=== PATIENT | female | born 1955 | race Caucasian/White ===

== ENCOUNTER 2017-01-20 09:32 | Day surgery (SDC) | payer BC ==
[~2017-01-20 09:32] MED LIST: Acetaminophen TAB* 325 MG PO PRN; Buffered Lidocaine 1% SYR 3ML* 3 ML/SYR SYRINGE INTRADERM ONE
[2017-01-20] MEDS ORDERED: Midazolam* 1 MG/ML 2 ML VIAL (2 MG) ONE ×2 (10:05→10:45)
[2017-01-20] MEDS ORDERED: fentaNYL* 50 MCG/ML 2 ML VIAL (100 MCG VIAL) ONE (10:05)
[2017-01-20 11:09] VITALS: BP 136/82
[2017-01-20] MEDS ORDERED: Phenylephrine 2.5% OPTH.SOL* 2 ML BTL ONE (11:24)
[2017-01-20] MEDS ORDERED: Lidocaine 1% MPF* 2 ML VIAL ONE (11:24)
[2017-01-20] MEDS ORDERED: Cyclopentolate 1% OPTH.SOL* 2 ML BTL ONE (11:24)
[2017-01-20] MEDS ORDERED: Tropicamide 1% OPTH.SOL* BTL ONE (11:24)
[2017-01-20] MEDS ORDERED: Tetracaine 0.5% OPTH.SOL 4 ML* 1 DROP BTL ONE (11:24)
[2017-01-20] MEDS ORDERED: Neomycin/Polymy/Dex OPHTH.OIN* 3.5 GM ONE (11:24)
[2017-01-20] MEDS ORDERED: Flurbiprofen 0.03% OPTH.SOL* 2.5 ML BTL ONE (11:24)
--- NOTE | 2017-01-20 14:02 | OP ---
DATE OF OPERATION/DATE OF DICTATION: 01/20/2017. DATE OF : 1955. SURGEON: Dr. Kota Sterling. DEVELOPING MACHINE TENDER: None. ANESTHESIA: Topical with intravenous sedation. PRE-OP DIAGNOSIS: Cataract, right eye. POST-OP DIAGNOSIS: Cataract, right eye. OPERATIVE PROCEDURE: Phacoemulsification and cataract extraction with posterior chamber intraocular lens implant, right eye. COMPLICATIONS: None. BLOOD LOSS: None. OPERATIVE FINDINGS: The patient was brought to the operating room and received a small amount of in travenous sedation. A drop of Tetracaine was placed in her right eye. She was prepped and draped i n the usual sterile fashion for ophthalmic surgery and attention was directed to the right eye where a speculum was placed. A paracentesis was created at the 11 o'clock position and 0.1 cc of 1 perce nt preservative-free Lidocaine was injected into the anterior chamber followed by DisCoVisc. The ey e was digitally stabilized while a 2.75 mm keratome was used to create a triplanar clear corneal inc ision at the 9 o'clock position. A continuous curvilinear capsulorrhexis was created with a cystoto me and Utrata forceps. BSS on a cannula was used to hydrodissect the lens from the capsule. Phacoe mulsification was performed in a vsqbxr-wdn-cnsoqxh technique to create four fragments which were re moved. Residual cortical material was removed with irrigation and aspiration. DisCoVisc was used to inflate the capsular bag and an AUOOTO 21.0 diopter lens was folded and inserted into the capsular bag. DisCoVisc was removed using irrigation and aspiration. BSS on a cannula was used to hydrate t he corneal stroma and seal the wound. At the end of the case the pupil was round and the lens was c entered. The eye was of normal pressure and the wound was water tight. The speculum was removed and topical Maxitrol ointment was placed on the surface of the eye. The eye was closed, patched and sh ielded and the patient was sent to the recovery room in stable condition with post operative instruc tions and follow-up appointment given. [id number]/[facility] #: [id number]
== END 2017-01-20 11:12 | disposition home or self-care (01) ==
LOC: OREAST 09:32
PROVIDERS: ATTEND Ophthalmology
DX: H25.11 Age-related nuclear cataract, right eye (principal); I10 Essential (primary) hypertension; Z87.891 Personal history of nicotine dependence; E03.9 Hypothyroidism, unspecified
CPT/HCPCS: A9270-GY; J2250; J3010; V2632

== ENCOUNTER 2017-02-03 09:06 | Day surgery (SDC) | payer BC ==
[~2017-02-03 09:06] MED LIST changes: -Acetaminophen TAB* 325 MG PO PRN; -Buffered Lidocaine 1% SYR 3ML* 3 ML/SYR SYRINGE INTRADERM ONE; +Buffered Lidocaine 1% SYRIN* 5 ML/SYR SYRINGE INTRADERM ONE
[2017-02-03] MEDS ORDERED: Midazolam* 1 MG/ML 2 ML VIAL (2 MG) ONE (10:18)
[2017-02-03] MEDS ORDERED: fentaNYL* 50 MCG/ML 2 ML VIAL (100 MCG VIAL) ONE (10:18)
[2017-02-03 11:10] VITALS: BP 130/75
[2017-02-03] MEDS ORDERED: Phenylephrine 2.5% OPTH.SOL* 2 ML BTL ONE (13:01)
[2017-02-03] MEDS ORDERED: Cyclopentolate 1% OPTH.SOL* 2 ML BTL ONE (13:01)
[2017-02-03] MEDS ORDERED: Neomycin/Polymy/Dex OPHTH.OIN* 3.5 GM ONE (13:01)
[2017-02-03] MEDS ORDERED: Lidocaine 1% MPF* 2 ML VIAL ONE (13:01)
[2017-02-03] MEDS ORDERED: Tropicamide 1% OPTH.SOL* BTL ONE (13:01)
[2017-02-03] MEDS ORDERED: Tetracaine 0.5% OPTH.SOL 4 ML* 1 DROP BTL ONE (13:01)
[2017-02-03] MEDS ORDERED: Flurbiprofen 0.03% OPTH.SOL* 2.5 ML BTL ONE (13:01)
--- NOTE | 2017-02-03 22:14 | OP ---
OPERATIVE REPORT: DATE OF OPERATION: 02/03/17 DATE OF : [birth year] SURGEON: Dr. Kota Sterling. PATHOLOGY TECHNICIAN: None. ANESTHESIA: Topical with intravenous sedation. PRE-OP DIAGNOSIS: Cataract, left eye. POST-OP DIAGNOSIS: Cataract, left eye. OPERATIVE PROCEDURE: Phacoemulsification and cataract extraction with posterior chamber intraocular lens implant, left eye. COMPLICATIONS: None. BLOOD LOSS: None. OPERATIVE FINDINGS: The patient was brought to the operating room and received a small amount of in travenous sedation. A drop of tetracaine was placed in her left eye. She was prepped and draped in the usual sterile fashion for ophthalmic surgery and attention was directed to the left eye where a speculum was placed. A paracentesis was created at the 5 o'clock position and 0.1 cc of 1 percent preservative-free Lidocaine was injected into the anterior chamber followed by DisCoVisc. The eye w as digitally stabilized while a 2.75 mm keratome was used to create a triplanar clear corneal incisi on at the 3 o'clock position. A continuous curvilinear capsulorrhexis was created with a cystotome and Utrata forceps. BSS on a cannula was used to hydrodissect the lens from the capsule. Phacoemuls ification was performed in a lhhlim-ymc-alhomiu technique to create four fragments which were remove d. Residual cortical material was removed with irrigation and aspiration. DisCoVisc was used to inf late the capsular bag and an [id number] 21.0 diopter lens was folded and inserted into the capsular bag. DisCoVisc was removed using irrigation and aspiration. BSS on a cannula was used to hydrate the c orneal stroma and seal the wound. At the end of the case the pupil was round and the lens was cente red. The eye was of normal pressure and the wound was water tight. The speculum was removed and top ical Maxitrol ointment was placed on the surface of the eye. The eye was closed, patched and shield ed and the patient was sent to the recovery room in stable condition with post operative instruction s and follow-up appointment given. [id number]/[facility] #: [id number]
== END 2017-02-03 11:12 | disposition home or self-care (01) ==
LOC: OREAST 09:06
PROVIDERS: ATTEND Ophthalmology
DX: H25.12 Age-related nuclear cataract, left eye (principal); I10 Essential (primary) hypertension
CPT/HCPCS: A9270-GY; J2250; J3010

== ENCOUNTER 2019-11-22 23:41 | Inpatient (IN) | payer BC, MEDICARE ==
--- OUTSIDE RECORDS SUMMARY | 2019-11-22 23:51 | XMS REPORT | Continuity of Care Document ---
:1955 External Reference #:[id number] Author Name Salvatore Greco MD Address [address] [place] [address] Problems Active Problems Provider Date Adult health examination Onset: 03/25/2019 Idiopathic peripheral neuropathy Salvatore Greco MD Onset: 05/12/2019 Type 2 diabetes mellitus without complication Onset: 03/25/2019 Benign essential hypertension Onset: 03/25/2019 Depressive disorder Onset: 01/12/2018 Body mass index 40+ - severely obese Onset: 03/25/2019 Chronic kidney disease Onset: 08/24/2018 Iron deficiency anemia Onset: 01/12/2018 Sciatica Onset: 03/25/2019 Hysterectomy Salvatore Greco MD Onset: 11/15/2019 Note: Maybe 1999? Social History Type Date Description Comments Sex Unknown Tobacco Use Start: Unknown End: Unknown Patient is a former smoker quit 1979 Smoking Status Reviewed: 11/15/19 Patient is a former smoker quit 1979 Allergies, Adverse Reactions, Alerts Active Allergies Reaction Severity Comments Date Cymbalta imbalance Mild 05/13/2019 Wellbutrin useless Mild 05/13/2019 Zoloft dec libido, dry mouth Mild 05/13/2019 Codeine Sulfate No Reaction Indicated Mild 05/13/2019 Bactrim Allergic urticaria Severe 05/13/2019 Paper Tape 1"X12yd No Reaction Indicated 05/13/2019 Chlorthalidone Hypokalemia 11/15/2019 Medications Active Medications SIG Qnty Indications Ordering Date Provider Glipizide 1/2 tablet daily 45tabs Salvatore Greco MD 11/17/2019 5mg Tablets Spironolactone one daily 90tabs Salvatore Greco MD 11/15/2019 25mg Tablets Nystatin Apply Cream 15units Parris Linn, 08/19/2019 [id number]/GM Topically Two MD Cream Times Daily For 14 Days Atorvastatin Calcium 1 daily Oral 90tabs Unknown 03/31/2019 40mg Tablets 3ML Luer-Kasey Syringe N/A; Use 1 12units Unknown 12/30/2018 22G X 1-1/2" Syringe Monthly 22G X 1-1/2" 3 ML Misc Ranitidine HCL Oral; Take 1 30tabs Unknown 12/24/2017 150mg Tablet By Mouth Tablets Every Day Cyanocobalamin Injection; Inject 10units Unknown 12/17/2017 1000mcg/ML 1 ML Monthly Solution Fenofibrate Oral; Take 1 90tabs Unknown 12/17/2017 145mg Tablets Tablet By [place] Day Proair HFA 2 Inhalation; 2 17units Unknown 12/17/2017 108(90Base) Puffs Q4-6 Hours mcg/Act Aerosol prn Cough Or Shortness Of Breath Tramadol HCL take 1 to 2 180tabs Salvatore Greco MD 12/07/2017 50mg Tablets tablets by mouth every 8 hours as needed - maximum daily dose of 6 per day Fluticasone Propionate nasal; spray 2 16units Salvatore Greco MD 11/18/2017 sprays into each 50mcg/Act Suspension nostril one time daily Blood Pressure Monitor 1 External 1units Unknown 05/22/2016 Talking Auto-Inflation Med Cuff Misc Gabapentin 2 tid Oral 0tabs Unknown 07/09/2008 600mg Tablets Immunizations CPT Code Status Date Vaccine Lot # [id number] Given 11/15/2019 Prevnar 13 [id number] Given 11/15/2019 Flu High Dose [id number] 56894 Given 12/17/2017 Shingrix - Shingles vaccine, Herpes Zoster 99010 Given 05/22/2016 Flu < 65 years 88106 Given 10/11/2013 Flu < 65 years 49097 Given 07/06/2012 Zoster Shingles Vaccine For Subcutaneous Injection 85298 Given 07/06/2012 Tdap - Boostrix/Adacel 47919 Given 07/06/2012 Flu < 65 years 64598 Given 06/07/2011 Flu < 65 years Vital Signs Date Vital Result Comment 11/15/2019 9:24am BP Systolic 122 mmHg BP Diastolic 74 mmHg Height 61.50 inches 5'1.50" Weight 260.00 lb Heart Rate 74 /min Body Temperature 98.0 F O2 % BldC Oximetry 98 % BMI (Body Mass Index) 48.3 kg/m2 03/25/2019 2:13pm BP Systolic 140 mmHg Height 60.50 inches 5'0.50" Weight 262.00 lb Heart Rate 83 /min Body Temperature 97.3 F O2 % BldC Oximetry 99 % BMI (Body Mass Index) 50.33 kg/m2 Results Test Acquired Date Facility Test Result H/L Range Note Xray 11/15/2019 [facility] Mammography <pending> [address], [place] [address] Bilateral; [phone] 2-View Each Breast Comp Metabolic 11/12/2019 [facility] Sodium 136 mmol/L Normal 135-145 Panel [address] [place], [place] [id number] [phone] Potassium 3.2 mmol/L Low 3.5-5.0 Chloride 98 mmol/L Low 101-111 Co2 Carbon Dioxide 28 mmol/L Normal 22-32 Anion Gap 10 mmol/L Normal 2-11 Glucose 180 mg/dL High 70-100 Blood Urea Nitrogen 25 mg/dL High 6-24 Creatinine 1.01 mg/dL High 0.51-0.95 BUN/Creatinine Ratio 24.8 High 8-20 Calcium 9.3 mg/dL Normal 8.6-10.3 Total Protein 7.0 g/dL Normal 6.4-8.9 Albumin 4.3 g/dL Normal 3.2-5.2 Globulin 2.7 g/dL Normal 2-4 Albumin/Globulin Ratio 1.6 Normal 1-3 Total Bilirubin 0.50 mg/dL Normal 0.2-1.0 Alkaline Phosphatase 89 U/L Normal 34-104 Alt 18 U/L Normal 7-52 Ast 26 U/L Normal 13-39 Egfr Non- 55.0 >60 Egfr 66.6 >60 1 Lipid Profile 11/12/2019 [facility] Triglycerides 334 mg/dL 2 (Trig/Chol/HDL) [address] [place], [place] [id number] [phone] Cholesterol 190 mg/dL 3 HDL Cholesterol 26.8 mg/dL 4 LDL Cholesterol 96 mg/dL 5 Laboratory test 11/12/2019 [facility] Hemoglobin A1c 6.4 % High 4.0-5.6 [address] ([facility]) [place] [address] [phone] Creatine Kinase(CK) 35 U/L Normal 10-223 1 Because ethnic data is not always readily available, this report includes an eGFR for both -Americans and non- Americans. The National Kidney Disease Education Program (NKDEP) does not endorse the use of the MDRD equation for patients that are not between the ages of 18 and 70, are , have extremes of body size, muscle mass, or nutritional status, or are non- or non-. According to the National Kidney Foundation, irrespective of diagnosis, the stage of the disease is based on the level of kidney function: Stage Description GFR(mL/min/1.73 m(2)) 1 Kidney damage with normal or decreased GFR 90 2 Kidney damage with mild decrease in GFR 60-89 3 Moderate decrease in GFR 30-59 4 Severe decrease in GFR 15-29 5 Kidney failure <15 (or dialysis) 2 Desirable: <150 Borderline High: 150-199 High: 200-499 Very High: >500 3 Desirable: <200 Borderline High: 200-239 High: >239 4 Low: <40 Desirable: 40-60 High: >60 5 Desirable: <100 Near Optimal: 100-129 Borderline High: 130-159 High: 160-189 Very High: >189 6 Therapeutic target for the treatment of diabetes mellitus patients is <7% HBA1C, and in selective patients <6.0%. Please refer to [place] [employer] diabetic care guidelines for further information. Procedures Date Code Description Status 11/15/2019 90140 Brief Emotional/Behav Assessment W/ Scoring Doc Per Completed Standard Inst Medical Devices Description No Information Available Encounters Type Date Location Provider Dx Diagnosis Office Visit 11/15/2019 [facility] Salvatore Greco MD E11.9 Type 2 diabetes mellitus 9:15a without complications I10 Essential (primary) hypertension G60.9 Hereditary and idiopathic neuropathy, unspecified M54.31 Sciatica, right side E87.6 Hypokalemia Assessments Date Code Description Provider 11/15/2019 E11.9 Type 2 diabetes mellitus without complication Salvatore Greco MD 11/15/2019 I10 Benign essential hypertension Salvatore Greco MD 11/15/2019 G60.9 Idiopathic peripheral neuropathy Salvatore Greco MD 11/15/2019 M54.31 Sciatica Salvatore Greco MD 11/15/2019 E87.6 Hypokalemia Salvatore Greco MD Plan of Treatment 11/15/2019 - Salvatore Greco MDE11.9 Type 2 diabetes mellitus without [id number] Benign essential fffairzgtsoqL32.9 Idiopathic peripheral msescjjvsqZ41.31 TiwjwtzrK41.6 HypokalemiaAllNew Medication:Spironolactone 25 mg - one daily Functional Status Description No Information Available Mental Status Description No Information Available Referrals Description No Information Available
--- OUTSIDE RECORDS SUMMARY | 2019-11-22 23:51 | XMS REPORT | Continuity of Care Document ---
:1955 External Reference #:[id number] Author Name Salvatore Greco MD (transmitted by agent of provider Quang Grossman) Address [address] [place] [address] Problems Active Problems Provider Date Adult health [...] Medications SIG Qnty Indications Ordering Date Provider Spironolactone one daily 90tabs Salvatore Greco MD 11/15/2019 25mg Tablets Nystatin Apply Cream 15units Parris Wineholt, 08/19/2019 [id number]/GM Topically Two MD Cream Times Daily For [...] dose of 6 per day Fluticasone Propionate Nasal; [place] 2 16units Unknown 11/18/2017 Sprays Into Each 50mcg/Act Suspension Nostril One Time Daily Blood Pressure Monitor 1 External 1units Unknown 05/22/2016 Talking Auto-Inflation Med Cuff Misc Gabapentin 2 tid Oral 0tabs Unknown 07/09/2008 600mg Tablets Immunizations CPT Code Status Date Vaccine Lot # [id number] Given 12/17/2017 Shingrix - Shingles vaccine, Herpes Zoster 93800 Given 05/22/2016 Flu < 65 years 39031 Given 10/11/2013 Flu < 65 years 06447 Given 07/06/2012 Zoster Shingles Vaccine For Subcutaneous Injection 63364 Given 07/06/2012 Tdap - Boostrix/Adacel 19607 Given 07/06/2012 Flu < 65 years 14987 Given 06/07/2011 Flu < 65 years Vital [...] Test Result H/L Range Note Xray 11/15/2019 [facility] Mammography <pending> [address], [place] [address] Bilateral; [phone] 2-View Each Breast Comp Metabolic 11/12/2019 [facility] Sodium 136 mmol/L Normal 135-145 Panel [address] [place] [address] [phone] Potassium 3.2 mmol/L Low 3.5-5.0 Chloride 98 [...] Egfr 66.6 >60 1 Lipid Profile 11/12/2019 [facility] Triglycerides 334 mg/dL 2 (Trig/Chol/HDL) [address] [place] [address] [phone] Cholesterol 190 mg/dL 3 HDL Cholesterol 26.8 mg/dL 4 LDL Cholesterol 96 mg/dL 5 Laboratory test 11/12/2019 [facility] Hemoglobin A1c 6.4 % High 4.0-5.[address] ([facility]) [place], [place] [id number] [phone] Creatine Kinase(CK) 35 U/L Normal 10-223 1 [...] in selective patients <6.0%. Please refer to [place] [employer] diabetic care guidelines for further information. Procedures Date Code Description Status 11/15/2019 12011 Brief Emotional/Behav Assessment W/ Scoring Doc Per Completed Standard Inst Medical Devices Description No Information Available Encounters Description No Information Available Assessments Description No Information Available Plan of Treatment 11/15/2019 - Haylee Mcclure Medication:Spironolactone 25 mg - one daily Functional Status Description No Information Available Mental Status Description No Information Available Referrals Description No Information Available
[2019-11-22] MEDS ORDERED: Morphine 10 MG/ML VIAL (1 ml) IV ONE (23:54)
[2019-11-22] MEDS ORDERED: NS 0.9% 1000 ML** 2,000 ML IV ONE (23:54)
[2019-11-22] MEDS ORDERED: Ondansetron INJ* 2 MG/ML VIAL IV ONE (23:54)
[2019-11-22] MEDS ORDERED: Morphine 4 MG/ML VIAL (1 ml) 4 MG/ML VIAL IV PRN (23:54)
[2019-11-23 00:33] LABS: ABS Eosinophils 0.1 10^3/ul (0-0.6); ABS Lymphocytes 0.6 10^3/ul (1.0-4.8); ABS Monocytes 0.3 10^3/ul (0-0.8); ABS Neutrophils 6.1 10^3/ul (1.5-7.7); Eosinophil % 0.8 %; Hematocrit 38 % (35-47); Hemoglobin 12.6 g/dL (12.0-16.0); Lymphocyte % 8.5 %; Mean Corpuscular HGB Conc 33 g/dL (31-36); Mean Corpuscular Hemoglobin 29 pg (27-31); Mean Corpuscular Volume 89 fL (80-97); Mean Platelet Volume 9.3 fL (7.4-10.4); Platelet Count 169 10^3/uL (150-450); Red Cell Distribution Width 14 % (10-15); White Blood Count 7.1 10^3/uL (3.5-10.8)
[2019-11-23 00:52] LABS: Albumin 4.2 g/dL (3.2-5.2); Albumin/Globulin Ratio 1.5 (1-3); BUN/Creatinine Ratio 22.5 (8-20); C Reactive Protein 8.49 mg/L (<8.01); Calcium 9.3 mg/dL (8.6-10.3); EGFR African American 65.8 (>60); EGFR Non-African American 54.4 (>60); Globulin 2.8 g/dL (2-4); Potassium 4.1 mmol/L (3.5-5.0); Total Bilirubin 0.4 mg/dL (0.2-1.0)
[2019-11-23] MEDS ORDERED: Iodixanol* (CONTRAST) 320 MG/ML 100 ML SDV IV ONE (00:56)
--- NOTE | 2019-11-23 01:09 | ED ---
Abdominal Pain/Female - HPI Summary HPI Summary: Patient is a 64 y/o F presenting to [facility] with complaints of upper abdominal pain, N/V/D. She states that she experienced onset of diarrhea three days ago along with her abdominal pain. Abdominal pain initially was mild and characterized as a cramping sensation. However, the abdominal pain significantly worsened this evening. N/V also onset. No fever currently as temp of 98 F in ED. She notes Hx of bowel obstruction but states that she is unsure if this is a similar presentation. PSHx of cholecystectomy noted, patient still has her appendix. Home medications and allergies are reviewed. Home Medications Medication Instructions Recorded Confirmed Type Metaxalone TAB* [Skelaxin TAB*] 1 tab PO BID 11/23/12 02/03/17 History celeCOXIB CAP* [Celebrex CAP*] 2 tab PO QAM 11/23/12 02/03/17 History traMADol TAB* [Ultram*] 50 - 100 mg PO Q8HR 11/23/12 02/03/17 History Diphenhydramine HCl [Benadryl] 2 cap PO QPM PRN 09/24/14 02/03/17 History Chlorthalidone TAB* [Hygroton TAB*] 1 tab PO QAM 03/15/15 02/03/17 History Cholecalciferol [Vitamin D3] 1 cap PO QAM 03/15/15 02/03/17 History Cyanocobalamin INJ * [Vitamin B12 1,000 mcg IM MONTHLY 03/15/15 02/03/17 History INJ *] Fenofibric Acid [Fibricor] 1 tab PO QAM 03/15/15 02/03/17 History Gabapentin TAB(NF) [Neurontin 600 1 tab PO BID 03/15/15 02/03/17 History mg TAB(NF)] Acetaminophen TAB* [Tylenol TAB*] 1,000 mg PO BID PRN 03/23/15 02/03/17 History Magnesium 1 tab PO QAM 01/14/17 02/03/17 History Ranitidine TAB (NF) [Zantac TAB 1 tab PO QAM 01/14/17 02/03/17 History (NF)] - History of Current Complaint Chief Complaint: EDAbdPain Stated Complaint: ABD PAIN PER EMS Time Seen by Provider: 11/22/19 23:49 Hx Obtained From: Patient Onset/Duration: Lasting Days, Still Present, Worse Since Timing: Days Severity Initially: Mild Severity Currently: Severe Pain Intensity: 10 Pain Scale Used: 0-10 Numeric Location: Other - upper abdomen Character: Cramping Associated Signs and Symptoms: Positive: Nausea, Vomiting, Diarrhea. Negative: Fever - temp of 98 F in ED Allergies/Adverse Reactions: Allergies Allergy/AdvReac Type Severity Reaction Status Date / Time Adhesive Tape Allergy Unknown Verified 11/22/19 23:53 Reaction Details codeine Allergy Facial Verified 11/23/19 00:35 Redness/Flushing pregabalin [From Lyrica] Allergy Hives Verified 11/23/19 00:35 Sulfa (Sulfonamide Allergy Hives Verified 11/23/19 00:35 Antibiotics) Bee Stings Allergy Severe Swelling Uncoded 02/03/17 09:19 Of Face,Lips,& Throat SEASONAL Allergy Congestion Uncoded 02/03/17 09:19 Home Medications: Home Medications Metaxalone TAB* [Skelaxin TAB*] 1 tab PO BID 11/23/12 [History Confirmed ] traMADol TAB* [Ultram*] 50 - 100 mg PO Q8HR PRN 11/23/12 [History Confirmed ] Diphenhydramine HCl [Benadryl] 2 cap PO QPM PRN 09/24/14 [History Confirmed ] Chlorthalidone TAB* [Hygroton TAB*] 1 tab PO QAM 03/15/15 [History Confirmed ] Cholecalciferol [Vitamin D3] 2 cap PO QAM 03/15/15 [History Confirmed 11/23/19] Cyanocobalamin INJ * [Vitamin B12 INJ *] 1,000 mcg IM MONTHLY 03/15/15 [History Confirmed 11/23/19] Gabapentin TAB(NF) [Neurontin 600 mg TAB(NF)] 2 tab PO TID 03/15/15 [History Confirmed 11/23/19] Acetaminophen TAB* [Tylenol TAB*] 1,000 mg PO BID PRN 03/23/15 [History Confirmed 11/23/19] Atorvastatin Calcium [Lipitor] 40 mg PO DAILY 11/23/19 [History Confirmed ] Fenofibrate(NF) [Tricor(NF)] 145 mg PO DAILY 11/23/19 [History Confirmed ] Spironolactone 25 mg PO DAILY 11/23/19 [History Confirmed 11/23/19] glipiZIDE [Glipizide] 2.5 mg PO DAILY 11/23/19 [History Confirmed 11/23/19] PMH/Surg Hx/FS Hx/Imm Hx Endocrine/Hematology History: Reports: Hx Thyroid Disease - HYPOTHYROID RESOLVED , LATE TEENS AND EARLY 20'S Denies: Hx Diabetes Cardiovascular History: Reports: Hx Hypercholesterolemia, Hx Hypertension - currently resolved, Respiratory History: Denies: Hx Asthma, Hx Chronic Obstructive Pulmonary Disease (COPD) GI History: Reports: Hx Ulcer - peptic, Other GI Disorders - GASTRIC BYPASS WITH CAT-N-Y 2002 History: Reports: Hx Kidney Stones - 2006 RENAL ULTRASOUND AND LASER TO BREAK UP, HAD STENT Musculoskeletal History: Reports: Hx Arthritis - OSTEO SPINE, HANDS, FEET, ANKLES, KNEES Sensory History: Reports: Hx Cataracts, Hx Contacts or Glasses - WEARS GLASSES Denies: Hx Glaucoma, Hx Hearing Aid Opthamlomology History: Reports: Hx Cataracts, Hx Contacts or Glasses - WEARS GLASSES Denies: Hx Glaucoma Neurological History: Reports: Hx Headaches - controlled with medication, Hx Nerve Disease - peripheral neurapathy - Cancer History Hx Chemotherapy: No Hx Radiation Therapy: No - Surgical History Surgery Procedure, Year, and Place: Gastric Bypass 2002, hernia repair, Kidney stone left (laser and stent), Hysterectomy 2006, Right knee replacement surgery 2011, Dental extractions 2010.lt knee replacement 2013, choley with gastric bypass Hx Anesthesia Reactions: No Infectious Disease History: No Infectious Disease History: Reports: 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 X2, BREAST AND CHEST AND L KNEE Denies: Hx Hepatitis, Hx Human Immunodeficiency Virus (HIV), Traveled Outside the [place] in Last 30 Days - Family History Known Family History: Positive: Other - [place] - Social History Alcohol Use: Rare Alcohol Amount: 1 BEER OR DRINK A MONTH AT MOST Substance Use Type: Reports: None Smoking Status (MU): Former Smoker Type: Cigarettes Amount Used/How Often: SMOKED 2 PPD FOR 10 YEARS Have You Smoked in the Last Year: No Review of Systems Negative: Fever - temp of 98 F in ED Positive: Abdominal Pain, Vomiting, Diarrhea, Nausea All Other Systems Reviewed And Are Negative: Yes Physical Exam - Summary Physical Exam Summary: Appearance: Well-appearing, Morbidly obese, substantial colicky pain Skin: Warm, dry, no obvious rash Eyes: sclera anicteric, no conjunctival pallor HENT: mucous membranes moist, pharynx appears normal Neck: Supple, nontender Respiratory: Clear to auscultation, no signs of respiratory distress Cardiovascular: Normal S1, S2. No murmurs. Normal distal pulses in tibial and radial bilaterally. Abdomen: Soft, upper abdominal tenderness, no obvious guarding, normal active bowel sounds present, limited exam secondary to obesity Musculoskeletal: Normal, Strength/ROM Intact Neurological: A&Ox3, awake and alert, mentation is normal, speech is fluent and appropriate Psychiatric: affect is normal, does not appear anxious or depressed Triage Information Reviewed: Yes Vital Signs On Initial Exam: Initial Vitals Pulse Pulse Ox 65 98 11/22/19 23:50 11/22/19 23:50 Vital Signs Reviewed: Yes Procedures - Sedation Patient Received Moderate/Deep Sedation with Procedure: No Diagnostics - Vital Signs Vital Signs Temp Pulse Resp BP Pulse Ox 11/23/19 00:23 67 174/90 99 11/23/19 00:00 66 20 100 11/22/19 23:52 98.0 F 67 18 193/123 98 11/22/19 23:51 64 193/123 99 11/22/19 23:50 65 98 - Laboratory Lab Results: Lab Results 11/23/19 11/23/19 11/23/19 Range/Units 00:15 00:15 00:15 WBC 7.1 (3.5-10.8) 10^3/uL RBC 4.30 (3.70-4.87) 10^6 /uL Hgb 12.6 (12.0-16.0) g/dL Hct 38 (35-47) % MCV 89 (80-97) fL MCH 29 (27-31) pg MCHC 33 (31-36) g/dL RDW 14 (10-15) % Plt Count 169 (150-450) 10^3/uL MPV 9.3 (7.4-10.4) fL Neut % (Auto) 86.4 % Lymph % (Auto) 8.5 % Fergus % (Auto) 4.0 % Eos % (Auto) 0.8 % Baso % (Auto) 0.3 % Absolute Neuts (auto) 6.1 (1.5-7.7) 10^3/ul Absolute Lymphs (auto) 0.6 L (1.0-4.8) 10^3/ul Absolute Monos (auto) 0.3 (0-0.8) 10^3/ul Absolute Eos (auto) 0.1 (0-0.6) 10^3/ul Absolute Basos (auto) 0.0 (0-0.2) 10^3/ul Absolute Nucleated RBC 0.0 10^3/ul Nucleated RBC % 0.0 Sodium 137 (135-145) mmol/L Potassium 4.1 (3.5-5.0) mmol/L Chloride 101 (101-111) mmol/L Carbon Dioxide 27 (22-32) mmol/L Anion Gap 9 (2-11) mmol/L BUN 23 (6-24) mg/dL Creatinine 1.02 H (0.51-0.95) mg/dL Est GFR ( Amer) 65.8 (>60) Est GFR (Non-Af Amer) 54.4 (>60) BUN/Creatinine Ratio 22.5 H (8-20) Glucose 218 H (70-100) mg/dL Lactic Acid 2.0 (0.5-2.0) mmol/L Calcium 9.3 (8.6-10.3) mg/dL Total Bilirubin 0.40 (0.2-1.0) mg/dL AST 23 (13-39) U/L ALT 17 (7-52) U/L Alkaline Phosphatase 79 (34-104) U/L C-Reactive Protein 8.49 H (<8.01) mg/L Total Protein 7.0 (6.4-8.9) g/dL Albumin 4.2 (3.2-5.2) g/dL Globulin 2.8 (2-4) g/dL Albumin/Globulin Ratio 1.5 (1-3) Lipase 120 H (11.0-82.0) U/L Result Diagrams: 11/23/19 00:15 11/23/19 00:15 Lab Statement: Any lab studies that have been ordered have been reviewed, and results considered in the medical decision making process. - CT CT ABD/PEL CT Interpretation Completed By: Radiologist Summary of CT Findings: IMPRESSION: Small bowel obstruction with transition in the lower midabdomen. No perforation. or ischemia. THIS REPORT WAS REVIEWED BY ED PHYSICIAN. Re-Evaluation - Re-Evaluation First Eval Re-Evaluation Time: 02:35 Comment: CT discussed with patient, surgery consult to be obtained Abdominal Pain Fem Course/Dx - Course Course Of Treatment: Patient is a 64 y/o F presenting to [facility] with complaints of upper abdominal pain, N/V/D. She states that she experienced onset of diarrhea three days ago along with her abdominal pain. Abdominal pain initially was mild and characterized as a cramping sensation. However, the abdominal pain significantly worsened this evening. N/V also onset. No fever currently as temp of 98 F in ED. She notes Hx of bowel obstruction but states that she is unsure if this is a similar presentation. PSHx of cholecystectomy noted, patient still has her appendix. On physical exam, patient is noted to be morbidly obese with substantial colicky pain. Abdomen: Soft, upper abdominal tenderness, no obvious guarding, normal active bowel sounds present, limited exam secondary to obesity. Bloodwork was obtained and within normal limits with exception of absolute lymphs 0.6, creatinine 1.02, BUN/creatinine ratio 22.5, glucose 218, CRP 8.49, lipase 120. During ED course, patient received Zofran 8 mg IV, morphine 10 mg IV and fluids. CT ABD/PEL IMPRESSION: Small bowel obstruction with transition in the lower midabdomen. No perforation. or ischemia. Patient' s case was discussed with Dr. Sanchez, Dr. Sanchez accepts the patient to his services. - Diagnoses Provider Diagnoses: SBO (small bowel obstruction) - Provider Notifications Discussed Care Of Patient With: Nilay Sanchez Time Discussed With Above Provider: 02:37 Instructed by Provider To: Other - Patient's case was discussed with Dr. Sanchez, Dr. Sanchez accepts the patient to his services. Discharge ED - Sign-Out/Discharge Documenting (check all that apply): Patient Departure - admit - Discharge Plan Condition: Stable Disposition: ADMITTED TO [facility] - Billing Disposition and Condition Condition: STABLE Disposition: Admitted to [facility] - Attestation Statements Document Initiated by Scribe: Yes Documenting Scribe: ARNULFO QUINONEZ Provider For Whom Scribe is Documenting (Include Credential): MARIA ELENA NARVAEZ MD Scribe Attestation: IARNULFO, scribed for MARIA ELENA NARVAEZ MD on 11/23/19 at 0610. Scribe Documentation Reviewed: Yes Provider Attestation: The documentation as recorded by the scribeARNULFO accurately reflects the service I personally performed and the decisions made by me, MARIA ELENA NARVAEZ MD Status of Scribe Document: Viewed
[2019-11-23 02:10] LABS: Urine Appearance Clear; Urine Bilirubin Negative (Negative); Urine Blood Negative (Negative); Urine Color Yellow; Urine Glucose 1+(50 mg/dL) (Negative); Urine Ketones Negative (Negative); Urine Nitrite Negative (Negative); Urine Protein Negative (Negative); Urine Specific Gravity 1.041 (1.010-1.030); Urine Urobilinogen Negative (Negative)
[2019-11-23] MEDS ORDERED: Morphine INJ* 2 MG/ML 1 ML SYRINGE (TWO MG - NEW SYRINGE VERSION) IV PRN (02:55)
[2019-11-23] MEDS ORDERED: Morphine INJ* 4 MG/ML 1 ML SYRINGE (NEW SYRINGE VERSION) IV PRN (02:56)
[2019-11-23] MEDS ORDERED: PROCHLORPERAZINE INJ 5 MG/ML 2 ML VIAL IV ONE (03:12)
[2019-11-23] MEDS ORDERED: NS 0.9% 500 ML* 500 ML IV ONE (05:55)
[2019-11-23] MEDS: Lactated Ringers 1000 ML Bag* 1,000 ML IV SCH ×2 (06:19→18:25)
[2019-11-23 07:36] LABS: ABS Eosinophils 0.1 10^3/ul (0-0.6); ABS Lymphocytes 0.4 10^3/ul (1.0-4.8); ABS Monocytes 0.2 10^3/ul (0-0.8); ABS Neutrophils 5.7 10^3/ul (1.5-7.7); Eosinophil % 2.1 %; Hematocrit 38 % (35-47); Hemoglobin 12.7 g/dL (12.0-16.0); Lymphocyte % 6.8 %; Mean Corpuscular HGB Conc 34 g/dL (31-36); Mean Corpuscular Hemoglobin 30 pg (27-31); Mean Corpuscular Volume 89 fL (80-97); Mean Platelet Volume 9.4 fL (7.4-10.4); Nucleated Red Blood Cells % 0.1; Platelet Count 186 10^3/uL (150-450); Red Blood Count 4.25 10^6 /uL (3.70-4.87); Red Cell Distribution Width 15 % (10-15); White Blood Count 6.4 10^3/uL (3.5-10.8)
[2019-11-23] MEDS ORDERED: Metoclopramide IV* 5 MG/ML 2 ML VIAL ONE (07:59)
[2019-11-23 08:02] LABS: BUN/Creatinine Ratio 22.4 (8-20); Calcium 8.9 mg/dL (8.6-10.3); EGFR African American 81.2 (>60); EGFR Non-African American 67.1 (>60)
[2019-11-23] MEDS ORDERED: Metoclopramide IV* 5 MG/ML 2 ML VIAL IV ONE (09:00)
[2019-11-23] MEDS ORDERED: NS 0.9% 1000 ML** 1,000 ML IV ONE (09:25)
[2019-11-23 09:42] LABS: Potassium 4.5 mmol/L (3.5-5.0)
--- NOTE | 2019-11-23 10:04 | PN ---
Progress Note - Progress Note Date of Service: 11/23/19 SOAP: Subjective: Pt seen and reexamined. worsening pain- decribed as severe. nausea. Objective: Temp Pulse Resp BP Pulse Ox 99.1 F 87 16 156/63 97 11/23/19 08:22 11/23/19 08:22 11/23/19 09:15 11/23/19 08:22 11/23/19 08:22 abdo: soft/ tender, but only mildly. labs notes Assessment: SBO, concerning for ischemia Plan: exploratory laparotmy, possible bowel resection, gastrostomy. R/B/A discussed with patient who agrees to proceed pre op abx hollis in OR NPO
--- NOTE | 2019-11-23 10:05 | HP ---
CC: Salvatore Greco MD; [facility] HISTORY AND PHYSICAL: DATE OF ADMISSION: 11/23/19 LOCATION: The patient is seen on room 333. HISTORY OF PRESENT ILLNESS: I was contacted overnight by the emergency room with Mrs. Marsh, a 64-y ear-old female, who is status post open Mariama-en-Y gastric bypass about 15 years ago, who is down appr oximately 100 pounds since the initial surgery, who presented with severe abdominal pain, treated in the emergency room with narcotics. She underwent workup including labs and CT. Labs are normal for the most part with the exception of an elevated glucose and elevated lipase and she underwent a CAT s can, which showed small bowel obstruction with possible transition point. With this transition in th e lower abdomen, no free fluid and no free air. The patient describes severe onset of diarrhea 2 days ago. This is accompanied with some pain, but i t worsened yesterday when she presented. She states that the pain is coming back. She did have naus ea and dry heaves. She is passing flatus but is also burping. The patient had similar pain 7 years ago, where according to the patient, [facility] and appears to the record that this is in 2008. PAST MEDICAL HISTORY: 1. Type 2 diabetes. 2. Peripheral neuropathy. 3. Depression. 4. Hypothyroidism. 5. Hypertension. 6. Hypercholesterolemia. 7. Chronic pain. PAST SURGICAL HISTORY: 1. Open gastric bypass as described above. 2. Laparoscopic ventral hernia repair with an 8 x 10 inch composite. 3. Total abdominal hysterectomy. 4. Cholecystectomy. 5. As well as orthopedic surgeries including knees. MEDICATION LIST: Includes; 1. Glipizide, which has been newly started by her physician after trying metformin, which led to dis comfort. 2. Spironolactone. 3. Vitamin B12 injection. 4. Atorvastatin. 5. Tylenol as needed. 6. Gabapentin. 7. Chlorthalidone. 8. Tramadol. 9. Fenofibrate. 10. Metaxalone. 11. Vitamin D3. 12. The patient rarely takes multivitamins. ALLERGIES: Allergy list reviewed includes CODEINE, PREGABALIN. FAMILY HISTORY: Noncontributory. SOCIAL HISTORY: Nonsmoker. 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 She lives with her significant other in [place]. REVIEW OF SYSTEMS: No fevers. She does describe intermittent sweats. No recent sick contact. No r ecent travel. No shortness of breath. No chest pain, abdominal pain as described nonradiating. No dysuria. No vaginal discharge. She does describe having frequent yeast infections. She also descri bes a rash on her upper breast that she will pick. Loose bowel movements and diarrhea 2 days ago as described. Otherwise, the patient has no significant change in bowel habits. Prior to this, she is n ot up-to-date on her colonoscopies. Her last EGD was around the surgical time for bypass over 15 yea rs ago. The patient ambulates without walker, as she is obese. No bleeding or clotting disorders. Endocrine disorder of diabetes as described, recently being treated with different medications. Her skin issues as described above. PHYSICAL EXAMINATION GENERAL: She is alert and oriented x3. She is in no apparent distress. VITAL SIGNS: She remains afebrile. Vital signs are stable. Blood pressure 150/60. She is on room air, satting at 99. Respirations listed as 20. She is resting comfortably when I see her, stating t hat the pain is about to start again. HEENT: Head, ears, eyes, nose, and throat: Normocephalic, atraumatic. Sclerae anicteric. Mucous m embranes are moist. NECK: No lymphadenopathy. LUNGS: Clear to auscultation bilaterally. Multiple scabs at the patient's upper breast bilaterally. No active bleeding. No signs of infection. ABDOMEN: Soft, obese, tender at the midabdomen and periumbilical region. Well- healed surgical inci sions. A small 2-cm herniation at the mid portion of the upper midline incision. This is reducible. EXTREMITIES: Within normal limits. No pitting edema in the bilateral lower extremities. No cyanosi s. RECTAL: Not performed. No CVA tenderness. DIAGNOSTIC STUDIES/LAB DATA: The patient's labs are reviewed. Repeat white blood count of 7.4. Me tabolic panel is pending. The patient's creatinine is 1. The patient had an elevated lactate overni ght of 2.7. Urinalysis is reviewed. CAT scan as described above with the also impression of air in the remnant stomach. No evidence of tw isting in the mesentery of the small bowel. No free air or free fluid. IMPRESSION AND PLAN: Small bowel obstruction in a patient who is status post gastric bypass without evidence of internal hernia, but this is in the differential. The patient does have a large ventral mesh placement with tacks and the possibility of distal small bowel obstruction secondary to hysterec rajiv. Plan is for a close observation with the strong likelihood of operation today, which would inc lude exploratory laparotomy, lysis of adhesions, and a remnant gastrostomy. I described this to the patient who understands. We will see how she does through the day and follow up her other labs. Kristen verma asked the hospitalist service to evaluate her as well co-manage her comorbidities. Otherwise, he r medications are held at this time. I have encouraged the patient to consider taking multivitamin. We will also order labs that would include B12, thiamine, folate levels. The patient will maintain n.p.o. status. She is on IV fluids. No antibiotics necessary. Strict I's and O's and serial abdomi nal exams throughout the day. [id number]/[facility] #: [id number]
--- NOTE | 2019-11-23 10:08 | PN ---
Progress Note - Progress Note Date of Service: 11/23/19 SOAP: Subjective: revision of plan Plan: Diagnostic laparoscopy, possible laparotomy, possible bowel resection, possible gastrostomy.
[2019-11-23] MEDS: Nystatin CREAM* 15 GM TUBE TOPICAL SCH ×3 (10:10→21:53)
[2019-11-23] MEDS: Ketorolac INJ* 15 MG/ML 1 ML VIAL IV PUSH PRN (10:18)
[2019-11-23] MEDS ORDERED: Bupivacaine 0.25% SDV* 30 ML ONE (10:46)
--- NOTE | 2019-11-23 10:54 | CONS ---
CONSULTATION NOTE: DATE OF CONSULT: 11/23/19 ADDENDUM: The patient's RCRI score is 1, class II risk with a 6% 30-day risk of , [place], or cardiac arrest. Preprocedure workup includes an ECG, which shows a rate of [address] elevation or depression. There are T-wave inversion in leads III and V1, which are unchanged from comparison with EKG done in March 2015. A chest x-ray shows no active cardiopulmonary disease. Her last echo was in 2014 and showed an EF of 55% to 60% with abnormal LV diastolic filling. I do not think that there is any need to repeat her echo as she has no murmur, no symptoms of heart failure including she denies GAMBOA, PND, lower extremity edema, shortness of breath. Again, her chest x-ray does not show signs of pulmonary congestion. At this time, I believe the patient requires no further workup prior to surgical intervention and she is medically optimized for surgery. COLT CRUZ [id number]/[facility] #: [id number] MTDD
--- NOTE | 2019-11-23 11:36 | CONS ---
ADDENDUM NOW INCLUDED ON THIS REPORT CC: Salvatore Greco MD * CONSULTATION NOTE: DATE OF CONSULT: 11/23/19 REQUESTING PHYSICIAN IN CONSULTATION: Nilay Sanchez MD ATTENDING PHYSICIAN: Dr. Alisa Law (dictated by COLT Santos). PRIMARY CARE PROVIDER: Salvatore Greco MD REASON FOR CONSULT: Co-medical management. HISTORY OF PRESENT ILLNESS: Ms. Marsh is a 64-year-old female with past medical history of hypertension, hyperlipidemia, diabetes, and history of small bowel obstruction, who presented to the ER on 11/22/19 with complaints of diffuse abdominal pain, nausea, dry heaves, and diarrhea. The patient reports that she ate dinner last night and then began to feel unwell. She did not eat any questionable foods recently. She has no new medications, although she does report that she was on glipizide recently and took this approximately 2 days ago. She does not use alcohol. She presented to the ER where a CT of the abdomen and pelvis was obtained and showed a small bowel obstruction without perforation or ischemia. She was admitted by the surgical team. The hospitalist team was asked to consult. PAST MEDICAL HISTORY: 1. Hypertension. 2. Hyperlipidemia. 3. Diabetes mellitus. 4. History of small bowel obstruction that resolved with conservative treatment after 5 days. PAST SURGICAL HISTORY: Mariama-en-y plus cholecystectomy in 2000, umbilical hernia repair x2, hysterectomy, bilateral knee replacement. HOME MEDICATIONS: 1. Acetaminophen 1000 mg p.o. b.i.d. p.r.n. 2. Atorvastatin 40 mg p.o. daily. 3. Cholecalciferol 2 caps p.o. daily. 4. Cyanocobalamin injection 1000 mcg IM monthly. 5. Diphenhydramine 2 caps p.o. at bedtime p.r.n. 6. Fenofibrate 145 mg p.o. daily. 7. Gabapentin 2 tabs p.o. t.i.d. 8. Metaxalone 1 tab p.o. b.i.d. 9. Spironolactone 25 mg p.o. daily. 10. Tramadol 50 to 100 mg p.o. q.8 hours p.r.n. DRUG ALLERGIES: ADHESIVE TAPE, CODEINE, PREGABALIN, SULFA, BEE STINGS, SEASONAL ALLERGIES. FAMILY HISTORY: Maternal grandfather had PA. Paternal grandfather had brain cancer. No family history of CVA or diabetes. SOCIAL HISTORY: The patient quit smoking in the s. Prior to that, she had a 20- pack-year smoking history. She rarely uses alcohol, last use was last summer. She does not use illicit drugs. She has 1 child. She lives with her partner. 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 In the event that she is unable to make her own medical decisions, she has appointed her partner Julio Lui to be her surrogate decision maker. REVIEW OF SYSTEMS: The patient reports diffuse abdominal pain, nausea, dry heaves, diarrhea, anorexia. Denies hematemesis, hematochezia, or melena. A 14- point review of systems was performed and all other systems are negative. PHYSICAL EXAM: General: Ms. Marsh is a well-developed, well-nourished, obese , middle-aged white female who is lying in bed. She appears acutely ill and somewhat unkempt. She appears to be having difficulty finding a comfortable position and appears to be in pain. HEENT: PERRL, EOMI. Oral mucous membranes are dry. Pharynx is clear. Cardiovascular: Regular rate and rhythm with S1 and S2 present. No murmurs, rubs, clicks, or gallops. There is no JVD. There is no peripheral edema. Pulmonary: Symmetrical chest expansion without use of accessory muscles. Clear to auscultation bilaterally without rhonchi, wheeze, or rales. Abdomen: Obese, bowel sounds are normoactive throughout. The abdomen is soft. There is tenderness to palpation at the epigastric and right upper and lower quadrants. Negative appendiceal signs. Musculoskeletal: Full range of motion without pain or deformities. Neuro: The patient is awake. She is alert and oriented x3. She has a steady gait without impairment. DIAGNOSTIC STUDIES/LAB DATA: 1. CBC: WBC 6.4, hemoglobin 12.7, hematocrit 38, MCV 89, platelets 186. 2. CMP: Sodium 135, potassium 4.5, chloride 102, carbon dioxide 23, anion gap 10, BUN 19, creatinine 0.85, glucose 139, total bili 0.40, AST 73, ALT 17, alk phos 79. CRP 8.49, lipase 192, lactic 2.7. 3. CT abdomen and pelvis with contrast. Impression: Small bowel obstruction with transition in the lower mid abdomen. No perforation or ischemia. ASSESSMENT AND PLAN: Ms. Marsh is a 64-year-old female with past medical history of hypertension, hyperlipidemia, diabetes, history of small bowel obstruction that resolved with conservative treatment, and history of multiple abdominal surgeries, who presented to the ER today with complaints of abdominal pain, nausea, vomiting, and diarrhea, and was found to have a small bowel obstruction. The hospitalist team was asked to consult on this patient. 1. Small bowel obstruction. The patient presents with symptomatology consistent with small bowel obstruction and imaging reveals small bowel obstruction with lower mid abdomen transition point. Surgery has admitted this patient and will continue to manage the patient. At this time, I have added additional pain control with ketorolac. The patient will remain n.p.o. for possible surgical intervention and for management of small bowel obstruction. The patient's RCRI score is 1, class II risk with a 6% 30-day risk of , PA , or cardiac arrest. Preprocedure workup includes an ECG, which shows a rate of [address] elevation or depression. There are T-wave inversion in leads III and V1, which are unchanged from comparison with EKG done in March 2015. A chest x-ray shows no active cardiopulmonary disease. Her last echo was in 2014 and showed an EF of 55% to 60% with abnormal LV diastolic filling. I do not think that there is any need to repeat her echo as she has no murmur, no symptoms of heart failure including she denies GAMBOA, PND, lower extremity edema, shortness of breath. Again, her chest x-ray does not show signs of pulmonary congestion. At this time, I believe the patient requires no further workup prior to surgical intervention and she is medically optimized for surgery. 2. Lactic acidosis. The patient has a lactic acidosis of 2.7. I believe that with her decreased oral intake, increase in vomiting and diarrhea, it is likely that she is dry. She has received fluid bolus in the ER. Surgery has added on a 0.5 L fluid bolus. We will add on 1 extra liter on top of that and she will be placed on maintenance fluids of 125 cc per hour per Surgery. Currently, the patient's lactic acid is 2.7. We will continue her fluid bolus of a total of 1.5 L and then reassess lactic acid. 3. Hypertension. At this time, we will hold the patient's spironolactone and this will be restarted as needed. Currently, the patient's systolic blood pressure is mildly elevated, her systolic into 150s which is likely due to pain. We will add on hydralazine IV as needed for hypertension. 4. Hyperlipidemia. Home medications include atorvastatin and fenofibrate. At this time, these medications will be held in the setting of n.p.o. 5. Diabetes mellitus. The patient states that she has "borderline diabetes." Her last hemoglobin A1c was from 11/12/19 and was 6.4. She states she was placed on glipizide in the past, but has stopped taking it due to hypoglycemia. Her last dose was 2 days ago. At this time, we will check fingersticks a.c. with lispro coverage, although I suspect she will not need much in the setting of n.p.o. 6. DVT prophylaxis. Chemo prophylaxis will be held at this time as the patient may need surgical intervention. In the meantime, she will be placed on SCDs. 7. Code status. Full code. TIME SPENT: Approximately 35 minutes were spent on this consultation; greater than half that time was spent [id number] with the patient obtaining history and performing physical and reviewing the plan of care. Case has been discussed with my attending Dr. Law, who is in agreement with the plan of care. COLT CRUZ [id number]/CPS #: [id number]/CPS #: [id number] SAGE
[2019-11-23] MEDS ORDERED: Midazolam* 1 MG/ML 5 ML VIAL (5 MG) ONE (11:50)
[2019-11-23] MEDS ORDERED: fentaNYL* 50 MCG/ML 2 ML VIAL (100 MCG VIAL) ONE (11:50)
[2019-11-23] MEDS ORDERED: Famotidine IV* 10 MG/ML 2 ML (20 mg) IV SLOW PU ONE (12:10)
[2019-11-23] MEDS ORDERED: Famotidine IV* 10 MG/ML 2 ML (20 mg) ONE (12:14)
[2019-11-23] MEDS ORDERED: ceFAZolin 2 GM PREMIX in ORs 2 GM/50 ML BAG ONE (12:36)
[2019-11-23] MEDS ORDERED: Lactated Ringers 1000 ML Bag* 1,000 ML IV SCH (13:00)
[2019-11-23] MEDS ORDERED: fentaNYL* 50 MCG/ML 5 ML VIAL (250 MCG VIAL) ONE (13:22)
[2019-11-23] MEDS ORDERED: Rocuronium* 10 MG/ML VIAL ONE ×2 (13:26→14:29)
[2019-11-23] MEDS ORDERED: Succinylcholine* 20 MG/ML 10 ML VIAL ONE (13:32)
[2019-11-23] MEDS ORDERED: DiMENhydriNATE IV* 50 MG/ML VIAL ONE (13:32)
[2019-11-23] MEDS ORDERED: Propofol* 10 MG/ML 20 ML BTL ONE (13:32)
[2019-11-23] MEDS ORDERED: Phenylephrine 40 MCG/ML SYRINGE ONE (13:32)
[2019-11-23] MEDS ORDERED: Ondansetron INJ* 2 MG/ML VIAL ONE (13:32)
[2019-11-23] MEDS ORDERED: Dexamethasone IV* 4 MG/ML 1 ML (4 MG) ONE (13:32)
[2019-11-23] MEDS ORDERED: Lidocaine 2% PF * 5 ML VIAL ONE (13:32)
[2019-11-23] MEDS ORDERED: Acetaminophen IV 1GM/100ML * 1,000 MG/100 ML VIAL IVPB ONE (14:19)
[2019-11-23] MEDS ORDERED: Naloxone* 0.4 MG/ML 1 ML VIAL IV PRN (14:19)
[2019-11-23] MEDS ORDERED: DiMENhydriNATE IV* 50 MG/ML VIAL IV PUSH PRN (14:19)
[2019-11-23] MEDS ORDERED: Labetalol IV* 5 MG/ML 20 ML VIAL ONE (15:04)
[2019-11-23] MEDS ORDERED: HYDROmorphone INJ1* 1 MG/ML SYRINGE ONE ×2 (16:27→18:12)
[2019-11-23] MEDS ORDERED: Sugammadex * 200 MG/2 ML VIAL IV PUSH ONE (16:52)
--- NOTE | 2019-11-23 17:31 | BRIEFOPN ---
Brief Operative/Procedure Note - Operation Details Pre-Op Diagnosis: SBO Post-Op Diagnosis: same Procedures: Diagnostic laparoscopy; exploratory laparotomy; lysis of adhesions; appendectomy Surgeon(s)/Proceduralists: Laura. Hotel Maintenance Engineer: COLT Dawson; COLT De La Rosa Anesthesia: GET. Fluids: 4500 ml RL Estimated Blood Loss: 300 ml Findings: as above; bezoar in jejuno-jejunal anastomosis Specimen(s)/Culture(s) Description: appendix Complications: none
[2019-11-23] MEDS ORDERED: Acetaminophen IV 1GM/100ML * 100 ML ONE (17:40)
[2019-11-23] MEDS: HYDROmorphone INJ1* 1 MG/ML SYRINGE IV PRN ×3 (18:13→18:30)
[2019-11-23] MEDS ORDERED: Naloxone* 0.4 MG/ML 1 ML VIAL IV PUSH PRN (19:18)
[2019-11-23] MEDS ORDERED: Acetaminophen TAB* 325 MG PO PRN (19:20)
[2019-11-23] MEDS: HYDROmorphone PCA* 20 MG/20 ML PCA.SYRING PCA SCH (20:09)
[2019-11-24] MEDS: Lactated Ringers 1000 ML Bag* 1,000 ML IV SCH ×3 (04:09→23:31)
[2019-11-24] MEDS: Heparin VIAL(*) 5000 UNITS/ML VIAL (FIVE THOUSAND) SUBCUT SCH ×3 (06:16→21:58)
[2019-11-24 06:35] LABS: ABS Lymphocytes 0.6 10^3/ul (1.0-4.8); ABS Monocytes 0.6 10^3/ul (0-0.8); ABS Neutrophils 5.4 10^3/ul (1.5-7.7); Eosinophil % 0.1 %; Hematocrit 35 % (35-47); Hemoglobin 11.4 g/dL (12.0-16.0); Lymphocyte % 8.7 %; Mean Corpuscular HGB Conc 33 g/dL (31-36); Mean Corpuscular Hemoglobin 29 pg (27-31); Mean Corpuscular Volume 88 fL (80-97); Mean Platelet Volume 9.3 fL (7.4-10.4); Platelet Count 181 10^3/uL (150-450); Red Blood Count 3.94 10^6 /uL (3.70-4.87); Red Cell Distribution Width 15 % (10-15); White Blood Count 6.6 10^3/uL (3.5-10.8)
[2019-11-24 06:53] LABS: BUN/Creatinine Ratio 20.3 (8-20); Calcium 7.8 mg/dL (8.6-10.3); EGFR African American 88.4 (>60); Potassium 3.4 mmol/L (3.5-5.0)
[2019-11-24 07:31] LABS: Folate 11.72 ng/mL (>3.99)
[2019-11-24] MEDS: Nystatin CREAM* 15 GM TUBE TOPICAL SCH ×3 (09:31→21:15)
[2019-11-24] MEDS: Ondansetron INJ* 2 MG/ML VIAL IV PRN (09:32)
--- NOTE | 2019-11-24 12:50 | PN ---
Subjective Date of Service: 11/24/19 Interval History: Ms. Marsh reports that she is about as good as can be expected. She continues to have breakthrough pain the SAFETY DEPOSIT CLERK but her pain is reasonably well controlled. She denies nausea. She denies shortness of breath or chest pain. Objective Active Medications: Acetaminophen (Tylenol Tab*) 650 mg PO Q4H PRN Heparin Sodium (Porcine) (Heparin Flush Picc/Ml/Cvc(*)) 0 ml FLUSH 0600,1800 TASIA Heparin Sodium (Porcine) (Heparin Vial(*)) 5,000 units SUBCUT Q8HR TASIA Hydralazine HCl (Apresoline Iv*) 5 mg IV SLOW PU Q6H PRN Lactated Ringer's (Lactated Ringers 1000 Ml Bag*) 1,000 mls @ 125 mls/hr IV PER RATE TASIA Hydromorphone HCl (Dilaudid Manager Bridge*) 20 mg in 20 mls @ 0 mls/hr SAFETY DEPOSIT CLERK .change Q24H TASIA; Protocol Ketorolac Tromethamine (Toradol Inj*) 15 mg IV PUSH Q6H PRN Naloxone HCl (Narcan*) 0 mg IV PUSH Q2M PRN Nystatin (Nystatin Cream*) 1 applic TOPICAL TID TASIA Ondansetron HCl (Zofran Inj*) 4 mg IV Q6H PRN Prochlorperazine Edisylate (Compazine Inj*) 10 mg IV Q6H PRN Vital Signs: Temp Pulse Resp BP Pulse Ox 98.8 F 75 16 143/59 99 11/24/19 12:13 11/24/19 12:13 11/24/19 12:13 11/24/19 12:13 11/24/19 12:13 Oxygen Devices in Use Now: Nasal Cannula Appearance: Female lying in bed in NAD Eyes: No Scleral Icterus Ears/Nose/Mouth/Throat: Mucous Membranes Moist Neck: Trachea Midline Respiratory: Symmetrical Chest Expansion and Respiratory Effort, Clear to Auscultation Cardiovascular: NL Sounds; No Murmurs; No JVD, No Edema Abdominal: - - Wound vac in place, no erythema, abdomen soft Neurological: Alert and Oriented x 3 Result Diagrams: 11/24/19 06:14 11/24/19 06:14 Additional Lab and Data: . Assess/Plan/Problems-Billing Assessment: Ms. Maluso is a 64 yo F with a PMH of diabetes, hypertension, and multiple abdominal surgeries who was admitted on 11/23/19 with SBO. - Patient Problems (1) SBO (small bowel obstruction) Comment: - To OR with Dr Sanchez 11/23/19, bezoar at jejuno-jejunal anastomosis - Management per surgery - Continue hydromorphone SAFETY DEPOSIT CLERK - Continue LR, replete potassium (2) Hypertension Comment: - BP well controlled - Hold home BP meds (3) Diabetes Comment: - Glucose well controlled - Diet controlled (4) Hyperlipidemia Comment: - Statin on hold (5) DVT prophylaxis Comment: - Heparin SQ (6) Full code status Comment: Status and Disposition: Inpatient, disposition per surgery
[2019-11-24] MEDS ORDERED: KCL 20 MEQ/100 ML IVPREMIX* 20 MEQ/100 ML BAG IV ONE (13:30)
--- NOTE | 2019-11-24 15:46 | PN ---
Progress Note - Progress Note Date of Service: 11/24/19 SOAP: Subjective: NAD Comfortable in Bed no N/V/Flatus or BM [] Objective: Vital Signs Temp 98.8 F 11/24/19 12:13 Pulse 75 11/24/19 12:13 Resp 15 11/24/19 15:34 BP 143/59 11/24/19 12:13 Pulse Ox 93 11/24/19 15:34 Intake & Output 11/23/19 11/24/19 11/24/19 18:59 06:59 18:59 Intake Total 2230 2441 990 Output Total 1800 550 500 Balance 430 1891 490 Intake: IV Fluids 2230 2441 990 LR 2180 2216 990 NS (0.9%) 225 NS 50ML, Cefazolin 2G 50 Oral 0 0 Output: Urine 750 200 Rush 1050 550 300 Other: # Bowel Movements 1 Estimated Stool Amount Small PEX GEN: NAD Chest: CTAB CVS: RRR Abd: provena dressing C/D/I operating well. soft, ND/NT, EXT: calves soft, non tender [] Assessment: 64 yo female POD 1 S/P Ex Lap, MARYBETH, APPY, provena vacuum wound dressing doing well. Pain controlled with STACKING MACHINE OPERATOR. Continues NPO [] Plan: Encouraged Deep Breathing, IS. Scd's, Ambulate with assist, AM LABS. continue STACKING MACHINE OPERATOR, AM Labs, NPO
--- NOTE | 2019-11-24 17:00 | OP ---
CC: [facility]; Primary Care Doctor * DATE OF OPERATION: 11/23/19 - ROOM #333 DATE OF : 53 SURGEON: Nilay Sanchez MD TOOL TENDER: COLT Faust and COLT Pa. ANESTHESIA: General anesthesia. PRE-OP DIAGNOSIS: Small bowel obstruction. POST-OP DIAGNOSIS: Small bowel obstruction. OPERATIVE PROCEDURE: 1. Diagnostic laparoscopy. 2. Exploratory laparotomy. 3. Extensive lysis of adhesions. 4. Appendectomy. ESTIMATED BLOOD LOSS: 300 cc. IV FLUIDS: 4500 cc of lactated Ringer's. SPECIMEN: Appendix. ADDITIONAL FINDINGS: Large bezoar at jejunojejunal anastomosis. DRAINS: None. COMPLICATIONS: None. INDICATIONS: Ms. Marsh is a 64-year-old female who was admitted to our service with a diagnosis of likely small bowel obstruction with significant abdominal pain, she is status post Mariama-en-Y gastric bypass and was evaluated and decision made to perform diagnostic laparoscopy and exploratory laparotomy. I outlined the details of the procedure with the patient, discussing the possibility of placement of a remnant gastrostomy. We spoke of the possible complications which include, but not limited to, bleeding, infection, hernia formation, need for additional procedures, ostomy formation, adjacent organ injury, enteric fistula, mesh infection, prolonged hospitalization, ME, PE, and even . The patient agreed to proceed. She was marked and consent signed. DESCRIPTION OF THE PROCEDURE: She was taken to the operating room, placed on the operating table in supine position. Preoperative antibiotics were given. Sequential devices were placed on bilateral lower extremities. General anesthesia was induced. A Rush catheter was inserted and the patient's abdomen was prepped and draped in standard surgical fashion. A time-out was performed. A subcostal incision at the right upper quadrant was made. This was deepened down to the anterior fascia which was elevated and the Veress needle attempted to be placed into the abdomen. When this failed, we removed the Veress needle and turned our attention to the lower midline. An incision was made just 3 fingerbreadths below the umbilicus and this was deepened down to the anterior fascia which was elevated, incised, and entry into the abdominal cavity was made directly going through all the layers. To get into this, however, we had to tunnel on top of the mesh that we encountered. We then placed a 12 mm extended length trocar inferior into the abdomen through this tunnel that just went under the mesh. The abdomen was then allowed to insufflate to a pressure of 15 mmHg. The patient tolerated the insufflation well. Camera was inserted and we reviewed the abdomen. There were significant amount of adhesions in the anterior abdominal wall and throughout. There was no evidence of ischemia. There was only scant free fluid. Additional 5 mm trocar was then inserted in the right lateral side. We could move the camera through this and we attempted some lysis of adhesions, but due to the torque on the abdominal wall, this became very difficult. Decision was made to convert to a laparotomy. The abdomen was allowed to collapse. The incision was extended superiorly through the previous laparotomy incision from the patient's gastric bypass procedure. We cut the mesh as we made our dissection superiorly and lysed adhesions as need be. Some of the omental and small bowel adhesions were right up against the tacks that were used for the laparoscopic mesh placement. The superior most aspect of the incision site ended at the edge of the liver, which was adhered to the mesh. We waited before we went any higher at this site and then turned our attention to the small bowel. Small bowel seen mildly dilated. We then identified the cecum which was intact and mostly collapsed. Appendix was identified as well as the terminal ileum. This took a fair amount of adhesiolysis just to be sure we have the terminal ileum as another loop of small bowel was adjacent to this. Once we had the collapsed distal ileum, we continued our dissection following in a small bowel we followed this intestine proximally, lysing adhesions as we went. These adhesions were significant. They were not dense and they were lysed with just scissors or blunt dissection, but there was an overwhelming amount of these adhesions and required approximately 200 minutes of painstaking lysis before we felt that we were at the jejunojejunostomy. The jejunojejunostomy was at the left upper quadrant and required fair amount of dissection off of the descending mesocolon until we could pull this up and into our view. This appeared intact without injury. We did note a bezoar within the jejunojejunostomy and we milked this distally into the combined limb and broke it up manually through the bowel wall. We then tried to follow the 2 proximal limbs, the biliopancreatic as well as the Mariama limb and these both extended towards the transverse mesocolon. There were significant adhesions at this site and we were not able to identify which was Mariama limb and which was not. Again, this showed no signs of ischemia, these were only mildly dilated and the bowel started to equilibrate some extent along with some peristalsis as we had the small bowel out of our incision site. I decided not to continue our dissection through the transverse mesocolon or to lyse the liver off of the top portion of the mesh for fear of causing additional injury. I thought we had proved that there was no ischemic bowel and that there was no hold up distal to the jejunojejunostomy other than the large bezoar that we had found. At this point, we made a decision to complete the case. The appendix was then removed with ligasure to the mesoappendix and 2 -o vicryl anabell to the normall appearing base. We irrigated, some serosal areas were sewed up with 3-0 silk sutures along the small bowel. We then closed the abdomen with interrupted #1 Vicryl sutures in [id number] fashion, whipstitching the mesh with #1 Prolene as we went. The wound was then irrigated. Skin daljit applied and a Prevena negative pressure wound treatment placed. We also stapled the 2 other laparoscopic incisions. The patient was woken up in the OR and transferred to the PACU in stable condition. [id number]/[facility] #: [id number] SAGE
[2019-11-24] MEDS: Hydrocortisone 1% CREAM* 30 GM TUBE TOPICAL SCH ×2 (18:00→20:59)
[2019-11-24] MEDS: HYDROmorphone PCA* 20 MG/20 ML PCA.SYRING PCA SCH (22:14)
[2019-11-25] MEDS: Ondansetron INJ* 2 MG/ML VIAL IV PRN (00:17)
[2019-11-25] MEDS: Heparin VIAL(*) 5000 UNITS/ML VIAL (FIVE THOUSAND) SUBCUT SCH ×3 (05:53→22:55)
[2019-11-25 06:09] LABS: ABS Eosinophils 0.1 10^3/ul (0-0.6); ABS Lymphocytes 0.6 10^3/ul (1.0-4.8); ABS Monocytes 0.5 10^3/ul (0-0.8); ABS Neutrophils 4.2 10^3/ul (1.5-7.7); Eosinophil % 1.4 %; Hematocrit 32 % (35-47); Hemoglobin 10.3 g/dL (12.0-16.0); Lymphocyte % 11.4 %; Mean Corpuscular HGB Conc 32 g/dL (31-36); Mean Corpuscular Hemoglobin 29 pg (27-31); Mean Corpuscular Volume 89 fL (80-97); Mean Platelet Volume 8.6 fL (7.4-10.4); Platelet Count 150 10^3/uL (150-450); Red Blood Count 3.56 10^6 /uL (3.70-4.87); Red Cell Distribution Width 15 % (10-15); White Blood Count 5.5 10^3/uL (3.5-10.8)
[2019-11-25 06:24] LABS: BUN/Creatinine Ratio 23.2 (8-20); Calcium 8.7 mg/dL (8.6-10.3); EGFR African American 103.3 (>60); EGFR Non-African American 85.4 (>60); Potassium 3.6 mmol/L (3.5-5.0)
[2019-11-25] MEDS: Lactated Ringers 1000 ML Bag* 1,000 ML IV SCH ×2 (07:39→16:22)
[2019-11-25] MEDS: Nystatin CREAM* 15 GM TUBE TOPICAL SCH ×3 (09:16→23:00)
[2019-11-25] MEDS: Hydrocortisone 1% CREAM* 30 GM TUBE TOPICAL SCH ×3 (09:16→23:00)
--- NOTE | 2019-11-25 09:45 | PN ---
Progress Note - Progress Note Date of Service: 11/25/19 Note: S: Pain controlled. c/o itching (for which she takes benadryl at home). Some nausea; no vomiting. She would like something to keep her mouth moistened. Not ambulating much yet, though is currently up in the chair. Passed flatus once. Denies SOB. O: Vital Signs - 8 hr 11/25/19 11/25/19 11/25/19 02:00 03:22 04:00 Temperature 98.5 F Pulse Rate 94 Respiratory 18 16 18 Rate Blood Pressure 124/52 (mmHg) O2 Sat by Pulse 97 97 98 Oximetry 11/25/19 11/25/19 06:00 07:45 Temperature 98 F Pulse Rate 88 Respiratory 18 16 Rate Blood Pressure 111/43 (mmHg) O2 Sat by Pulse 97 97 Oximetry Intake and Output Last 24 Hours 11/23/19 11/24/19 11/25/19 11/26/19 06:59 06:59 06:59 06:59 Intake Total 0 4671 1980 1040 Output Total 200 2350 1540 200 Balance -200 2321 440 840 Weight 255 lb Intake: IV Fluids 4671 1980 990 LR 4396 1979 990 NS (0.9%) 225 NS 50ML, Cefazolin 2G 50 IVPB 50 LR 50 Oral 0 0 0 Output: Urine 523 938 9768 200 Rush 1600 300 Other: # Bowel Movements 1 Estimated Stool Amount Small Gen: sitting up in chair; NAD Heart: reg; murmur throughout precordium Lungs: clear to bases as well as upper faye Abd: hypoactive BS; preveena dressing in place; soft; mild to moderate incisional tenderness Extr: no sig edema or tenderness Labs: CBC and P3 reviewed; wnl A: s/p expl lap w/ MARYBETH; doing ok P: discussed w/ Dr. Sanchez; will allow sips of clears; encourage ambulation and IS use; BOBBIN DISKER (reduced interval to q 15 min); benadryl prn
[2019-11-25] MEDS: diPHENhydraMINE IV* 50 MG/ML 1 ml VIAL (BENADRYL) IV PRN ×2 (11:26→18:55)
--- NOTE | 2019-11-25 14:05 | PN ---
Subjective Date of Service: 11/25/19 Interval History: Ms. Marsh reports that she is feeling ok today. She has some generalized abdominal pain that is reasonably well-controlled on her VALIDATION MANAGER. Objective Active Medications: Acetaminophen (Tylenol Tab*) 650 mg PO Q4H PRN Diphenhydramine HCl (Benadryl Iv*) 25 mg IV Q6H PRN Heparin Sodium (Porcine) (Heparin Flush Picc/Ml/Cvc(*)) 0 ml FLUSH 0600,1800 TASIA Heparin Sodium (Porcine) (Heparin Vial(*)) 5,000 units SUBCUT Q8HR TASIA Hydralazine HCl (Apresoline Iv*) 5 mg IV SLOW PU Q6H PRN Hydrocortisone (Hytone Cream 1%*) 1 applic TOPICAL BID TASIA Lactated Ringer's (Lactated Ringers 1000 Ml Bag*) 1,000 mls @ 125 mls/hr IV PER RATE TASIA Hydromorphone HCl (Dilaudid Pathology Specialist*) 20 mg in 20 mls @ 0 mls/hr VALIDATION MANAGER .change Q24H TASIA; Protocol Ketorolac Tromethamine (Toradol Inj*) 15 mg IV PUSH Q6H PRN Naloxone HCl (Narcan*) 0 mg IV PUSH Q2M PRN Nystatin (Nystatin Cream*) 1 applic TOPICAL TID TASIA Ondansetron HCl (Zofran Inj*) 4 mg IV Q6H PRN Prochlorperazine Edisylate (Compazine Inj*) 10 mg IV Q6H PRN Vital Signs: Temp Pulse Resp BP Pulse Ox 98.5 F 89 18 127/55 97 11/25/19 11:42 11/25/19 11:42 11/25/19 12:48 11/25/19 11:42 11/25/19 12:48 Oxygen Devices in Use Now: Nasal Cannula Appearance: Female lying in bed in NAD Eyes: No Scleral Icterus Ears/Nose/Mouth/Throat: Mucous Membranes Moist Respiratory: Symmetrical Chest Expansion and Respiratory Effort, Clear to Auscultation Cardiovascular: NL Sounds; No Murmurs; No JVD, No Edema Abdominal: NL Sounds; No Tenderness; No Distention Extremities: No Edema Neurological: Alert and Oriented x 3, NL Muscle Strength and Tone Nutrition: Taking PO's Result Diagrams: 11/25/19 05:50 11/25/19 05:50 Additional Lab and Data: . Assess/Plan/Problems-Billing Assessment: Ms. Marsh is a 64 yo F with a PMH of diabetes, hypertension, and multiple abdominal surgeries who was admitted on 11/23/19 with SBO. - Patient Problems (1) SBO (small bowel obstruction) Comment: - To OR with Dr Sanchez 11/23/19, bezoar at jejuno-jejunal anastomosis - Management per surgery - Continue hydromorphone VALIDATION MANAGER - Continue LR, replete potassium (2) Hypertension Comment: - BP well controlled - Hold home BP meds (3) Diabetes Comment: - Glucose well controlled - Diet controlled (4) Hyperlipidemia Comment: - Statin on hold (5) DVT prophylaxis Comment: - Heparin SQ (6) Full code status Comment: Status and Disposition: Inpatient, disposition per surgery
[2019-11-25] MEDS: HYDROmorphone PCA* 20 MG/20 ML PCA.SYRING PCA SCH (19:51)
[2019-11-26] MEDS: Hydrocortisone 1% CREAM* 30 GM TUBE TOPICAL SCH ×3 (01:32→22:25)
[2019-11-26] MEDS: Heparin VIAL(*) 5000 UNITS/ML VIAL (FIVE THOUSAND) SUBCUT SCH ×3 (05:51→22:25)
[2019-11-26] MEDS: Lactated Ringers 1000 ML Bag* 1,000 ML IV SCH ×4 (05:53→23:23)
[2019-11-26 06:07] LABS: ABS Eosinophils 0.1 10^3/ul (0-0.6); ABS Lymphocytes 0.6 10^3/ul (1.0-4.8); ABS Monocytes 0.3 10^3/ul (0-0.8); ABS Neutrophils 3.3 10^3/ul (1.5-7.7); Eosinophil % 2.2 %; Hematocrit 28 % (35-47); Hemoglobin 9.5 g/dL (12.0-16.0); Lymphocyte % 13.3 %; Mean Corpuscular HGB Conc 34 g/dL (31-36); Mean Corpuscular Hemoglobin 30 pg (27-31); Mean Corpuscular Volume 89 fL (80-97); Mean Platelet Volume 8.6 fL (7.4-10.4); Platelet Count 141 10^3/uL (150-450); Red Blood Count 3.19 10^6 /uL (3.70-4.87); Red Cell Distribution Width 14 % (10-15); White Blood Count 4.2 10^3/uL (3.5-10.8)
[2019-11-26 06:24] LABS: BUN/Creatinine Ratio 16.9 (8-20); Calcium 8.8 mg/dL (8.6-10.3); EGFR African American 123.8 (>60); EGFR Non-African American 102.3 (>60); Potassium 3.4 mmol/L (3.5-5.0)
--- NOTE | 2019-11-26 09:04 | PN ---
Progress Note - Progress Note Date of Service: 11/26/19 SOAP: Subjective: Doing well-small amount of flatus, no N/V Still using QUALITY CONTROL TECH RAW MATERIALS Ambulated a little yesterday Objective: Temp Pulse Resp BP Pulse Ox 98.2 F 78 16 155/75 94 11/26/19 07:21 11/26/19 07:21 11/26/19 07:44 11/26/19 07:21 11/26/19 07:44 Intake & Output 11/24/19 11/25/19 11/26/19 11/27/19 06:59 06:59 06:59 06:59 Intake Total 4671 1979 242 Output Total 2350 1540 1050 200 Balance 2321 440 1373 -200 Intake: IV Fluids 4671 1979 227 LR 4396 1979 990 NS (0.9%) 225 1283 NS 50ML, Cefazolin 2G 50 IVPB 50 LR 50 Oral 0 0 100 Output: Urine 750 1240 1050 200 Rush 1600 300 Other: Estimated Void Medium # Bowel Movements 1 Estimated Stool Amount Small # Voids 1 PEX: Comfortable Lungs are clear Abd is soft and slightly distended, obese; wound vac in place. Few bowel sounds Laboratory Results - last 24 hr 11/26/19 11/26/19 05:45 05:45 WBC 4.2 RBC 3.19 L Hgb 9.5 L Hct 28 L MCV 89 MCH 30 MCHC 34 RDW 14 Plt Count 141 L MPV 8.6 Neut % (Auto) 77.5 Lymph % (Auto) 13.3 Mobile % (Auto) 6.7 Eos % (Auto) 2.2 Baso % (Auto) 0.3 Absolute Neuts (auto) 3.3 Absolute Lymphs (auto) 0.6 L Absolute Monos (auto) 0.3 Absolute Eos (auto) 0.1 Absolute Basos (auto) 0.0 Absolute Nucleated RBC 0.0 Nucleated RBC % 0.0 Sodium 136 Potassium 3.4 L Chloride 100 L Carbon Dioxide 28 Anion Gap 8 BUN 10 Creatinine 0.59 Est GFR ( Amer) 123.8 Est GFR (Non-Af Amer) 102.3 BUN/Creatinine Ratio 16.9 Glucose 89 Calcium 8.8 Assessment: S/P exlap MARYBETH for SBO Ileus Obesity Plan: Sips of clears Increase activity QUALITY CONTROL TECH RAW MATERIALS Replete K+ Pul toilet Subq heparin
[2019-11-26] MEDS: Nystatin CREAM* 15 GM TUBE TOPICAL SCH ×4 (10:24→22:29)
[2019-11-26] MEDS: Potassium Chloride* LIQUID 20 MEQ/15 ML UDC PO SCH ×2 (10:25→22:25)
[2019-11-26] MEDS: diPHENhydraMINE IV* 50 MG/ML 1 ml VIAL (BENADRYL) IV PRN (10:25)
--- NOTE | 2019-11-26 14:00 | PN ---
Subjective Date of Service: 11/26/19 Interval History: Ms. Marsh reports that she is feeling well today. 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 She denies chest pain or SOB. Objective Active Medications: Acetaminophen (Tylenol Tab*) 650 mg PO Q4H PRN Diphenhydramine HCl (Benadryl Iv*) 25 mg IV Q6H PRN Heparin Sodium (Porcine) (Heparin Flush Picc/Ml/Cvc(*)) 0 ml FLUSH 0600,1800 [facility] Heparin Sodium (Porcine) (Heparin Vial(*)) 5,000 units SUBCUT Q8HR [facility] Hydralazine HCl (Apresoline Iv*) 5 mg IV SLOW PU Q6H PRN Hydrocortisone (Hytone Cream 1%*) 1 applic TOPICAL BID [facility] Lactated Ringer's (Lactated Ringers 1000 Ml Bag*) 1,000 mls @ 125 mls/hr IV PER RATE [facility] Hydromorphone HCl (Dilaudid Parking Lot Laborer*) 20 mg in 20 mls @ 0 mls/hr [employer]ALL SUPERVISOR .change Q24H [facility]; Protocol Ketorolac Tromethamine (Toradol Inj*) 15 mg IV PUSH Q6H PRN Naloxone HCl (Narcan*) 0 mg IV PUSH Q2M PRN Nystatin (Nystatin Cream*) 1 applic TOPICAL TID [facility] Ondansetron HCl (Zofran Inj*) 4 mg IV Q6H PRN Potassium Chloride (Potassium Chloride Liquid) 20 meq PO BID [facility] Prochlorperazine Edisylate (Compazine Inj*) 10 mg IV Q6H PRN Vital Signs: Temp Pulse Resp BP Pulse Ox 98.1 F 79 16 126/60 93 11/26/19 11:11 11/26/19 11:11 11/26/19 13:00 11/26/19 11:11 11/26/19 13:00 Oxygen Devices in Use Now: Nasal Cannula Appearance: Female lying in bed in NAD Eyes: No Scleral Icterus Ears/Nose/Mouth/Throat: Mucous Membranes Moist Neck: Trachea Midline Respiratory: Symmetrical Chest Expansion and Respiratory Effort, Clear to Auscultation Cardiovascular: NL Sounds; No Murmurs; No JVD, No Edema Abdominal: - - Soft, wound vac in place Extremities: No Edema Neurological: Alert and Oriented x 3, NL Muscle Strength and Tone Nutrition: Taking PO's Result Diagrams: 11/26/19 05:45 11/26/19 05:45 Additional Lab and Data: . Assess/Plan/Problems-Billing Assessment: Ms. Marsh is a 64 yo F with a PMH of diabetes, hypertension, and multiple abdominal surgeries who was admitted on 11/23/19 with SBO. - Patient Problems (1) SBO (small bowel obstruction) Comment: - To OR with Dr Sanchez 11/23/19, bezoar at jejuno-jejunal anastomosis - Management per surgery - Continue hydromorphone TILT WALL SUPERVISOR per surgery, recommend - Continue LR, replete potassium (2) Hypertension Comment: - BP well controlled - Hold home BP meds (3) Diabetes Comment: - Glucose well controlled - Diet controlled (4) Hyperlipidemia Comment: - Statin on hold (5) DVT prophylaxis Comment: - Heparin SQ (6) Full code status Comment: Status and Disposition: Inpatient, disposition per surgery
[2019-11-27] MEDS: Albuterol HFA INHALER* 8 gm MDI INH PRN ×3 (00:14→21:33)
[2019-11-27] MEDS: HYDROmorphone PCA* 20 MG/20 ML PCA.SYRING PCA SCH (00:54)
[2019-11-27] MEDS: diPHENhydraMINE IV* 50 MG/ML 1 ml VIAL (BENADRYL) IV PRN (05:29)
[2019-11-27] MEDS: Heparin VIAL(*) 5000 UNITS/ML VIAL (FIVE THOUSAND) SUBCUT SCH ×3 (06:27→21:25)
[2019-11-27] MEDS: Lactated Ringers 1000 ML Bag* 1,000 ML IV SCH ×2 (07:26→15:27)
[2019-11-27 08:08] LABS: ABS Eosinophils 0.1 10^3/ul (0-0.6); ABS Lymphocytes 0.6 10^3/ul (1.0-4.8); ABS Monocytes 0.3 10^3/ul (0-0.8); ABS Neutrophils 2.6 10^3/ul (1.5-7.7); Eosinophil % 3.6 %; Hematocrit 30 % (35-47); Hemoglobin 9.9 g/dL (12.0-16.0); Lymphocyte % 16.7 %; Mean Corpuscular HGB Conc 33 g/dL (31-36); Mean Corpuscular Hemoglobin 30 pg (27-31); Mean Corpuscular Volume 89 fL (80-97); Mean Platelet Volume 8.6 fL (7.4-10.4); Nucleated Red Blood Cells % 0.1; Platelet Count 153 10^3/uL (150-450); Red Blood Count 3.33 10^6 /uL (3.70-4.87); Red Cell Distribution Width 14 % (10-15); White Blood Count 3.6 10^3/uL (3.5-10.8)
--- NOTE | 2019-11-27 10:08 | PN ---
Progress Note - Progress Note Date of Service: 11/27/19 SOAP: Subjective: Doing much better Passing larger amounts of flatus Not using LIQUEFIER No N/V Objective: Temp Pulse Resp BP Pulse Ox 97.8 F 75 16 155/71 96 11/27/19 07:22 11/27/19 07:22 11/27/19 07:33 11/27/19 07:22 11/27/19 07:22 Intake & Output 11/25/19 11/26/19 11/27/19 11/28/19 06:59 06:59 06:59 06:59 Intake Total 1979 2423 2510 Output Total 1540 1050 1330 Balance 440 1373 1180 Intake: IV Fluids 1979 2273 1930 LR 4840 266 4722 NS (0.9%) 1283 IVPB 50 LR 50 Oral 0 100 580 Output: Urine 1240 1050 1330 Rush 300 Other: Estimated Void Medium Medium # Voids 1 1 PEX: Comfortable Lungs are clear Abd is soft, obese. Bowel sounds present, normoactive. Wound vac in place ext without edema Assessment: POD# 4 s/p exlap for SBO Ileus-resolving Plan: Advance diet-clears Decrease IVF D/V LIQUEFIER Increase activity Hopeful D/C home tomorrow
[2019-11-27] MEDS: Potassium Chloride* LIQUID 20 MEQ/15 ML UDC PO SCH ×2 (11:14→21:25)
[2019-11-27] MEDS: Nystatin CREAM* 15 GM TUBE TOPICAL SCH ×3 (11:16→21:26)
[2019-11-27] MEDS: Hydrocortisone 1% CREAM* 30 GM TUBE TOPICAL SCH ×2 (11:16→21:26)
--- NOTE | 2019-11-27 14:11 | PN ---
Subjective Date of Service: 11/27/19 Interval History: Pt states her pain is manageable at this time. PERFORMANCE CONSULTANT to be d/c'd this afternoon. Denies any JIM, CP, SOB, N/V, swelling. States she is experiencing a mild discomfort around wound VAC, itching and mild burning. Has been passing flatus. Has been tolerating clear liquids. Objective Active Medications: Acetaminophen (Tylenol Tab*) 650 mg PO Q4H PRN PRN Reason: MILD PAIN OR TEMP > 101 Albuterol (Ventolin Hfa Inhaler*) 2 puff INH Q6H PRN PRN Reason: WHEEZING Last Admin: 11/27/19 07:31 Dose: 2 puff Diphenhydramine HCl (Benadryl Iv*) 25 mg IV Q6H PRN PRN Reason: ITCHING Last Admin: 11/27/19 05:29 Dose: 25 mg Heparin Sodium (Porcine) (Heparin Flush Picc/Ml/Cvc(*)) 0 ml FLUSH 0600,1800 [facility] Last Admin: 11/27/19 06:28 Dose: Not Given Heparin Sodium (Porcine) (Heparin Vial(*)) 5,000 units SUBCUT Q8HR [facility] Last Admin: 11/27/19 06:27 Dose: 5,000 units Hydralazine HCl (Apresoline Iv*) 5 mg IV SLOW PU Q6H PRN PRN Reason: SBP > 160 Hydrocortisone (Hytone Cream 1%*) 1 applic TOPICAL BID [facility] Last Admin: 11/27/19 11:16 Dose: 1 applic Hydromorphone HCl (Dilaudid Inj*) 0.5 mg IV SLOW PU Q3H PRN PRN Reason: PAIN - MODERATE Lactated Ringer's (Lactated Ringers 1000 Ml Bag*) 1,000 mls @ 60 mls/hr IV PER RATE [facility] Ketorolac Tromethamine (Toradol Inj*) 15 mg IV PUSH Q6H PRN PRN Reason: PAIN - MILD Last Admin: 11/23/19 10:18 Dose: 15 mg Nystatin (Nystatin Cream*) 1 applic TOPICAL TID [facility] Last Admin: 11/27/19 11:16 Dose: 1 each Ondansetron HCl (Zofran Inj*) 4 mg IV Q6H PRN PRN Reason: NAUSEA Last Admin: 11/25/19 00:17 Dose: 4 mg Potassium Chloride (Potassium Chloride Liquid) 20 meq PO BID [facility] Last Admin: 11/27/19 11:14 Dose: 20 meq Prochlorperazine Edisylate (Compazine Inj*) 10 mg IV Q6H PRN PRN Reason: NAUSEA/VOMITING Vital Signs - 8 hr 11/27/19 11/27/19 11/27/19 07:22 07:33 12:02 Temperature 97.8 F 98.0 F Pulse Rate 75 73 Respiratory 16 16 16 Rate Blood Pressure 155/71 154/74 (mmHg) O2 Sat by Pulse 96 100 Oximetry Oxygen Devices in Use Now: None Appearance: Sitting up in chair, NAD Eyes: - - PERRL Ears/Nose/Mouth/Throat: Clear Oropharnyx Respiratory: Symmetrical Chest Expansion and Respiratory Effort, Clear to Auscultation Cardiovascular: RRR Abdominal: NL Sounds; No Tenderness; No Distention, - - wound VAC to midline abdomen, intact, no surrounding erythema, warmth, edema or drainage Extremities: No Edema, - - PPP 2+ bilaterally Neurological: Alert and Oriented x 3 Nutrition: Taking PO's - clear liquids Result Diagrams: 11/27/19 07:54 11/26/19 05:45 Additional Lab and Data: . Assess/Plan/Problems-Billing Assessment: Ms. Marsh is a 64 yo F with a PMH of diabetes, hypertension, and multiple abdominal surgeries who was admitted on 11/23/19 with SBO. - Patient Problems (1) SBO (small bowel obstruction) Current Visit: Yes Status: Acute Code(s): K56.609 - UNSP INTESTNL OBST, UNSP TO PARTIAL VERSUS COMPLETE OBST SNOMED Code(s): 479053719 Comment: - To OR with Dr Sanchez 11/23/19, bezoar at jejuno-jejunal anastomosis - Management per surgery - D/c PERFORMANCE CONSULTANT this afternoon, meds per surgery - Continue LR, replete potassium - BMP ordered for a.m. (2) Diabetes Current Visit: Yes Status: Acute Code(s): E11.9 - TYPE 2 DIABETES MELLITUS WITHOUT COMPLICATIONS SNOMED Code(s): 69939339 Comment: Mild elevations, A1c 6.4, on glipizide at home, now on clear liquid diet - No interventions necessary at this time - Continue to monitor - Recommend resuming home meds when on more of a regular diet (3) Hyperlipidemia Current Visit: Yes Status: Acute Code(s): E78.5 - HYPERLIPIDEMIA, UNSPECIFIED SNOMED Code(s): 76334462 Comment: - Statin on hold (4) Hypertension Current Visit: Yes Status: Acute Code(s): I10 - ESSENTIAL (PRIMARY) HYPERTENSION SNOMED Code(s): 76178976 Comment: mildly elevated at this time, will continue to hold home meds until she is tolerating adequate amounts of clear liquid diet and IVF can be d/c - Hold spironolactone (5) DVT prophylaxis Current Visit: Yes Status: Acute Code(s): Z29.9 - ENCOUNTER FOR PROPHYLACTIC MEASURES, UNSPECIFIED SNOMED Code(s): 092565494 Comment: - Heparin SQ (6) Full code status Current Visit: Yes Status: Acute Code(s): Z78.9 - OTHER SPECIFIED HEALTH STATUS SNOMED Code(s): 062332673 Comment: Status and Disposition: Inpatient, disposition per surgery Attending: Alisa aLw
[2019-11-27] MEDS: Ketorolac INJ* 15 MG/ML 1 ML VIAL IV PUSH PRN ×2 (14:25→21:24)
[2019-11-27] MEDS: HYDROmorphone INJ* 0.5 MG/0.5 ML SYRINGE IV SLOW PU PRN (15:27)
[2019-11-27] MEDS: Ondansetron INJ* 2 MG/ML VIAL IV PRN (15:36)
[2019-11-28] MEDS: Ondansetron INJ* 2 MG/ML VIAL IV PRN ×4 (00:21→22:49)
[2019-11-28] MEDS ORDERED: LORazepam INJ* 2 MG/ML 1 ML VIAL IV PUSH ONE (02:29)
[2019-11-28] MEDS ORDERED: Lorazepam PYXIS KEY PRN (02:29)
[2019-11-28] MEDS: PROCHLORPERAZINE INJ 5 MG/ML 2 ML VIAL IV PRN ×3 (03:07→19:16)
[2019-11-28] MEDS: HYDROmorphone INJ* 0.5 MG/0.5 ML SYRINGE IV SLOW PU PRN ×2 (03:08→12:11)
[2019-11-28 05:18] LABS: BUN/Creatinine Ratio 13.1 (8-20); Calcium 8.8 mg/dL (8.6-10.3); EGFR African American 119.1 (>60); EGFR Non-African American 98.4 (>60); Potassium 3.6 mmol/L (3.5-5.0)
[2019-11-28] MEDS: Heparin VIAL(*) 5000 UNITS/ML VIAL (FIVE THOUSAND) SUBCUT SCH ×3 (05:34→22:49)
[2019-11-28] MEDS: diPHENhydraMINE IV* 50 MG/ML 1 ml VIAL (BENADRYL) IV PRN (08:51)
[2019-11-28] MEDS: Ketorolac INJ* 15 MG/ML 1 ML VIAL IV PUSH PRN (08:52)
[2019-11-28] MEDS: Spironolactone TAB* 25 MG PO SCH (09:00)
[2019-11-28] MEDS: Nystatin CREAM* 15 GM TUBE TOPICAL SCH ×3 (09:02→23:20)
[2019-11-28] MEDS: Lactated Ringers 1000 ML Bag* 1,000 ML IV SCH (10:02)
[2019-11-28] MEDS: Potassium Chloride* LIQUID 20 MEQ/15 ML UDC PO SCH (11:43)
[2019-11-28] MEDS: Hydrocortisone 1% CREAM* 30 GM TUBE TOPICAL SCH ×3 (11:43→23:20)
[2019-11-28] MEDS: hydrALAZINE IV* 20 MG/ML VIAL IV SLOW PU PRN ×2 (12:10→20:57)
[2019-11-28] MEDS ORDERED: Gabapentin TAB(NF) 600 MG PO SCH (14:00)
[2019-11-28] MEDS ORDERED: Gabapentin CAP(*) 300 MG PO SCH (14:15)
[2019-11-28] MEDS ORDERED: amLODIPine TAB* 5 MG PO ONE (17:12)
--- NOTE | 2019-11-28 17:20 | PN ---
Subjective Date of Service: 11/28/19 Interval History: States she is having nausea and abdominal cramping, denies emesis, requesting anti-emetic from nursing. Denies fever, lightheadedness, CP, SOB, swelling. Objective Active Medications: Acetaminophen (Tylenol Tab*) 650 mg PO Q4H PRN PRN Reason: MILD PAIN OR TEMP > 101 Hydrocodone Bitart/Acetaminophen ([place] 5-325 Tab*) 1 tab PO Q4H PRN PRN Reason: PAIN - MODERATE Albuterol (Ventolin Hfa Inhaler*) 2 puff INH Q6H PRN PRN Reason: WHEEZING Last Admin: 11/27/19 21:33 Dose: 2 puff Amlodipine Besylate (Norvasc Tab*) 5 mg PO ONCE ONE Stop: 11/28/19 17:13 Diphenhydramine HCl (Benadryl Iv*) 25 mg IV Q6H PRN PRN Reason: ITCHING Last Admin: 11/28/19 08:51 Dose: 25 mg Gabapentin (Neurontin Cap(*)) 600 mg PO TID [facility] Heparin Sodium (Porcine) (Heparin Flush Picc/Ml/Cvc(*)) 0 ml FLUSH 0600,1800 [facility] Last Admin: 11/28/19 05:42 Dose: Not Given Heparin Sodium (Porcine) (Heparin Vial(*)) 5,000 units SUBCUT Q8HR [facility] Last Admin: 11/28/19 14:24 Dose: 5,000 units Hydralazine HCl (Apresoline Iv*) 5 mg IV SLOW PU Q6H PRN PRN Reason: SBP > 160 Last Admin: 11/28/19 12:10 Dose: 5 mg Hydrocortisone (Hytone Cream 1%*) 1 applic TOPICAL BID [facility] Last Admin: 11/28/19 11:52 Dose: 1 applic Hydromorphone HCl (Dilaudid Inj*) 0.5 mg IV SLOW PU Q3H PRN PRN Reason: PAIN - MODERATE Last Admin: 11/28/19 12:11 Dose: 0.5 mg Metaxalone (Skelaxin Tab*) 800 mg PO BID [facility] Miscellaneous (Ativan Pyxis Kaur) 1 ea N/A .ATIVAN IV KAUR PRN PRN Reason: PYXIS KAUR Nystatin (Nystatin Cream*) 1 applic TOPICAL TID [facility] Last Admin: 11/28/19 15:05 Dose: Not Given Ondansetron HCl (Zofran Inj*) 4 mg IV Q6H PRN PRN Reason: NAUSEA Last Admin: 11/28/19 11:45 Dose: 4 mg Prochlorperazine Edisylate (Compazine Inj*) 10 mg IV Q6H PRN PRN Reason: NAUSEA/VOMITING Last Admin: 11/28/19 13:12 Dose: 10 mg Spironolactone (Aldactone Tab*) 25 mg PO DAILY [facility] Last Admin: 11/28/19 09:00 Dose: 25 mg Vital Signs - 8 hr 11/28/19 11/28/19 11/28/19 11:14 11:21 12:11 Temperature 98.0 F Pulse Rate 84 Respiratory 18 18 18 Rate Blood Pressure 170/74 (mmHg) O2 Sat by Pulse 99 Oximetry 11/28/19 11/28/19 14:23 15:32 Temperature 99.0 F Pulse Rate 93 Respiratory 16 20 Rate Blood Pressure 177/76 (mmHg) O2 Sat by Pulse 100 Oximetry Oxygen Devices in Use Now: None Appearance: Laying in bed, guarded Ears/Nose/Mouth/Throat: Clear Oropharnyx Respiratory: Symmetrical Chest Expansion and Respiratory Effort, Clear to Auscultation Cardiovascular: RRR - with 3/10 systolic murmur best heard at R upper sternal boarder, no rubs or gallops Abdominal: - - hypoactive BS throughout, abdomen large, soft, diffuse tenderness Extremities: No Edema Skin: - - wound VAC to midline incision, intact Neurological: Alert and Oriented x 3 Nutrition: Taking PO's - clears Result Diagrams: 11/27/19 07:54 11/28/19 04:29 Additional Lab and Data: . Assess/Plan/Problems-Billing Assessment: Ms. Marsh is a 64 yo F with a PMH of diabetes, hypertension, and multiple abdominal surgeries who was admitted on 11/23/19 with SBO. - Patient Problems (1) SBO (small bowel obstruction) Current Visit: Yes Status: Acute Code(s): K56.609 - UNSP INTESTNL OBST, UNSP TO PARTIAL VERSUS COMPLETE OBST SNOMED Code(s): 499989059 Comment: - To OR with Dr Sanchez 11/23/19, bezoar at jejuno-jejunal anastomosis - Management per surgery - IV and oral pain meds available - BMP ordered for a.m. (2) Hypertension Current Visit: Yes Status: Acute Code(s): I10 - ESSENTIAL (PRIMARY) HYPERTENSION SNOMED Code(s): 43403910 Comment: moderately elevated at this time, taking adequate clears - d/c IVF - continue spironolactone - add amlodipine 5mg X1 - if she responds well to this then this may be added on a daily basis, if not is it reasonable to assume there is fluid excess in r/ t surgery although she is not exhibiting overt s/s and may add a dose of lasix tomorrow morning (3) Diabetes Current Visit: Yes Status: Acute Code(s): E11.9 - TYPE 2 DIABETES MELLITUS WITHOUT COMPLICATIONS SNOMED Code(s): 71706408 Comment: Mild elevations at times, A1c 6.4, on glipizide at home, now on clear liquid diet - No interventions necessary at this time - Continue to monitor - Recommend resuming home meds when on more of a regular diet (4) Hyperlipidemia Current Visit: Yes Status: Acute Code(s): E78.5 - HYPERLIPIDEMIA, UNSPECIFIED SNOMED Code(s): 23419011 Comment: - Statin on hold (5) DVT prophylaxis Current Visit: Yes Status: Acute Code(s): Z29.9 - ENCOUNTER FOR PROPHYLACTIC MEASURES, UNSPECIFIED SNOMED Code(s): 467861436 Comment: - Heparin SQ (6) Full code status Current Visit: Yes Status: Acute Code(s): Z78.9 - OTHER SPECIFIED HEALTH STATUS SNOMED Code(s): 080440651 Comment: Status and Disposition: Inpatient, disposition per surgery Attending: Alisa Law
[2019-11-28] MEDS: HYDROcodone/ACETAMIN 5-325 MG* 1 TAB PO PRN (17:32)
[2019-11-28] MEDS ORDERED: amLODIPine TAB* 5 MG ONE (17:43)
--- NOTE | 2019-11-28 18:03 | PN ---
Progress Note - Progress Note Date of Service: 11/28/19 SOAP: Subjective: Pt seen and examined. Difficult night. anxious pos nausea, no vomiting. pos flatus Objective: [] Temp Pulse Resp BP Pulse Ox 99.0 F 93 16 177/76 100 11/28/19 15:32 11/28/19 15:32 11/28/19 17:32 11/28/19 15:32 11/28/19 15:32 a and o x3, mild distress lungs; clear abdo: soft/ mild distension/ NT dressing in place ext wnl labs noted Assessment: POD 5, MARYBETH, ileus Plan: resume home meds CT scan if no improvement in 24 hrs
[2019-11-28] MEDS: Gabapentin CAP(*) 300 MG PO SCH (21:31)
[2019-11-28] MEDS: Metaxalone TAB* 800 MG PO SCH (21:32)
[2019-11-29] MEDS ORDERED: hydrALAZINE IV* 20 MG/ML VIAL IV SLOW PU ONE (00:35)
[2019-11-29] MEDS: PROCHLORPERAZINE INJ 5 MG/ML 2 ML VIAL IV PRN ×4 (02:10→23:01)
[2019-11-29] MEDS: Ondansetron INJ* 2 MG/ML VIAL IV PRN ×3 (05:51→20:13)
[2019-11-29] MEDS: Heparin VIAL(*) 5000 UNITS/ML VIAL (FIVE THOUSAND) SUBCUT SCH ×3 (05:51→22:41)
[2019-11-29 05:52] LABS: ABS Lymphocytes 0.5 10^3/ul (1.0-4.8); ABS Monocytes 0.4 10^3/ul (0-0.8); ABS Neutrophils 4.8 10^3/ul (1.5-7.7); Eosinophil % 0.3 %; Hematocrit 35 % (35-47); Hemoglobin 11.5 g/dL (12.0-16.0); Lymphocyte % 8.1 %; Mean Corpuscular HGB Conc 33 g/dL (31-36); Mean Corpuscular Hemoglobin 29 pg (27-31); Mean Corpuscular Volume 88 fL (80-97); Mean Platelet Volume 8.1 fL (7.4-10.4); Platelet Count 236 10^3/uL (150-450); Red Blood Count 3.92 10^6 /uL (3.70-4.87); Red Cell Distribution Width 15 % (10-15); White Blood Count 5.7 10^3/uL (3.5-10.8)
[2019-11-29] MEDS ORDERED: amLODIPine TAB* 5 MG PO ONE (06:04)
[2019-11-29 06:10] LABS: BUN/Creatinine Ratio 11.6 (8-20); Calcium 8.7 mg/dL (8.6-10.3); EGFR African American 103.3 (>60); EGFR Non-African American 85.4 (>60); Magnesium 1.4 mg/dL (1.9-2.7); Phosphorus 3.9 mg/dL (2.5-5.0); Potassium 3.6 mmol/L (3.5-5.0)
[2019-11-29] MEDS ORDERED: Magnesium Sulfate 2 GM IV* 2 GM/50 ML BAG IVPB ONE ×4 (08:03→09:25)
--- NOTE | 2019-11-29 09:19 | PN ---
Progress Note - Progress Note Date of Service: 11/29/19 Note: S: POD #6. Continues to have freq nausea; vomited x 2 last night. Feels better at present. Some loose stool, but less than previous. Little to no flatus. Pain is less. Ambulating some, but also seems to add to her nausea. Vital Signs - 8 hr 11/29/19 11/29/19 02:17 04:50 Temperature 97 F 99 F Pulse Rate 90 92 Respiratory 16 16 Rate Blood Pressure 167/77 173/83 (mmHg) O2 Sat by Pulse 98 97 Oximetry Intake and Output Last 24 Hours 11/27/19 11/28/19 11/29/19 11/30/19 06:59 06:59 06:59 06:59 Intake Total 2510 1360 1814 Output Total 1330 1300 1600 300 Balance 1180 60 214 -300 Intake: IV Fluids 1930 1084 LR 1930 1084 Oral 580 1360 730 Output: Urine 1330 1300 1400 300 Emesis 200 Other: Estimated Void Medium Medium Date of Last Bowel 11/28/2019 Movement # Bowel Movements 1 Estimated Stool Amount Small # Voids 1 1 2 Gen: appears comfortable; NAD Heart: reg w/ murmur Lungs: clear ant Abd: provena dsg intact; add'l lap sites ok; BS nearly absent; soft; min incisional tenderness A: s/p expl lap, MARYBETH; prob ileus, but stable overall P: cont IVF; will d/w Dr. Sanchez; back down to clears only; imaging?
[2019-11-29] MEDS: Spironolactone TAB* 25 MG PO SCH (11:28)
[2019-11-29] MEDS: Gabapentin CAP(*) 300 MG PO SCH ×3 (11:31→23:00)
[2019-11-29] MEDS: Hydrocortisone 1% CREAM* 30 GM TUBE TOPICAL SCH ×2 (11:48→20:57)
[2019-11-29] MEDS: Metaxalone TAB* 800 MG PO SCH ×2 (11:48→20:57)
[2019-11-29] MEDS: Nystatin CREAM* 15 GM TUBE TOPICAL SCH ×3 (11:49→20:57)
[2019-11-29] MEDS: hydrALAZINE IV* 20 MG/ML VIAL IV SLOW PU PRN (12:02)
[2019-11-29] MEDS: NS 0.9% w/ 20 Meq KCL 1000 ML* 1,000 ML IV SCH (12:02)
--- NOTE | 2019-11-29 13:09 | PN ---
Subjective Date of Service: 11/29/19 Interval History: Pt reports that she continues to have nausea but denies vomiting since last night, reports that compazine works much better than zofran for her nausea. Pt also reports that she is very tired and does not sleep well. Denies any chest pain, SOB, Headaches, or dizziness. Pt reports just minor abdominal discomfort and that she has been moving her bowels and urinating. Family History: Unchanged from Admission Social History: Unchanged from Admission Past Medical History: Unchanged from Admission Objective Active Medications: Acetaminophen (Tylenol Tab*) 650 mg PO Q4H PRN PRN Reason: MILD PAIN OR TEMP > 101 Hydrocodone Bitart/Acetaminophen ([place] 5-325 Tab*) 1 tab PO Q4H PRN PRN Reason: PAIN - MODERATE Last Admin: 11/28/19 17:32 Dose: 1 tab Albuterol (Ventolin Hfa Inhaler*) 2 puff INH Q6H PRN PRN Reason: WHEEZING Last Admin: 11/27/19 21:33 Dose: 2 puff Amlodipine Besylate (Norvasc Tab*) 5 mg PO DAILY [facility] Diphenhydramine HCl (Benadryl Iv*) 25 mg IV Q6H PRN PRN Reason: ITCHING Last Admin: 11/28/19 08:51 Dose: 25 mg Gabapentin (Neurontin Cap(*)) 600 mg PO TID [facility] Last Admin: 11/29/19 11:31 Dose: 600 mg Heparin Sodium (Porcine) (Heparin Flush Picc/Ml/Cvc(*)) 0 ml FLUSH 0600,1800 [facility] Last Admin: 11/29/19 05:52 Dose: 1 ml Heparin Sodium (Porcine) (Heparin Vial(*)) 5,000 units SUBCUT Q8HR [facility] Last Admin: 11/29/19 05:51 Dose: 5,000 units Hydralazine HCl (Apresoline Iv*) 5 mg IV SLOW PU Q6H PRN PRN Reason: SBP > 160 Last Admin: 11/29/19 12:02 Dose: 5 mg Hydrocortisone (Hytone Cream 1%*) 1 applic TOPICAL BID [facility] Last Admin: 11/29/19 11:48 Dose: Not Given Hydromorphone HCl (Dilaudid Inj*) 0.5 mg IV SLOW PU Q3H PRN PRN Reason: PAIN - MODERATE Last Admin: 11/28/19 12:11 Dose: 0.5 mg Potassium Chloride/Sodium Chloride (Ns 0.9% W/ 20 Meq Kcl 1000 Ml*) 1,000 mls @ 75 mls/hr IV PER RATE [facility] Last Admin: 11/29/19 12:02 Dose: 75 mls/hr Metaxalone (Skelaxin Tab*) 800 mg PO BID [facility] Last Admin: 11/29/19 11:48 Dose: Not Given Miscellaneous (Ativan Pyxis Colon) 1 ea N/A .ATIVAN IV COLON PRN PRN Reason: PYXIS COLON Nystatin (Nystatin Cream*) 1 applic TOPICAL TID [facility] Last Admin: 11/29/19 11:49 Dose: Not Given Ondansetron HCl (Zofran Inj*) 4 mg IV Q6H PRN PRN Reason: NAUSEA Last Admin: 11/29/19 12:40 Dose: 4 mg Prochlorperazine Edisylate (Compazine Inj*) 10 mg IV Q6H PRN PRN Reason: NAUSEA/VOMITING Last Admin: 11/29/19 10:54 Dose: 10 mg Spironolactone (Aldactone Tab*) 25 mg PO DAILY [facility] Last Admin: 11/29/19 11:28 Dose: 25 mg Vital Signs - 8 hr 11/29/19 11/29/19 11/29/19 07:20 08:08 11:31 Temperature 98.5 F Pulse Rate 89 Respiratory 16 28 16 Rate Blood Pressure 160/88 (mmHg) O2 Sat by Pulse 98 Oximetry 11/29/19 11:50 Temperature 98.0 F Pulse Rate 97 Respiratory 28 Rate Blood Pressure 170/110 (mmHg) O2 Sat by Pulse 97 Oximetry Oxygen Devices in Use Now: None Appearance: Obese elderly woman ambulating from bathroom to bed with walker only. Pt does not appear to be in any distress. Eyes: No Scleral Icterus, PERRLA Ears/Nose/Mouth/Throat: NL Teeth, Lips, Gums - Does not have dentures in at this time., Clear Oropharnyx, Mucous Membranes Moist Neck: NL Appearance and Movements; NL JVP, Trachea Midline, No Thyroid Enlargement, Masses Respiratory: Symmetrical Chest Expansion and Respiratory Effort, Clear to Auscultation Cardiovascular: NL Sounds; No Murmurs; No JVD, RRR, No Edema Abdominal: NL Sounds; No Tenderness; No Distention, No Hepatosplenomegaly - BS positive bilateral upper quadrants, hypoactive bilater lower quadrants. Lymphatic: No Cervical Adenopathy Skin: No Rash or Ulcers, No Nodules or Sclerosis, - - punctures in right abdomen healing well, daljit intact wounds without drainage. Wound vac remains intact with just minimal output in vaccuum line, nothing in collection chamber Neurological: Alert and Oriented x 3, NL Sensation, NL Gait, NL Muscle Strength and Tone Nutrition: Taking PO's Result Diagrams: 11/29/19 05:45 11/30/19 04:52 Additional Lab and Data: . Assess/Plan/Problems-Billing Assessment: Ms. Marsh is a 64 yo F with a PMH of diabetes, hypertension, and multiple abdominal surgeries who was admitted on 11/23/19 with SBO. - Patient Problems (1) SBO (small bowel obstruction) Current Visit: Yes Comment: - To OR with Dr Sanchez 11/23/19, bezoar at jejuno-jejunal anastomosis - Management per surgery - IV and oral pain meds available - BMP, Mg, Phos ordered for a.m. (2) Diabetes Current Visit: Yes Comment: -Mild elevations in BG at times, continue to hold glipizide at this time. Pt has been placed back on clears as she has been nauseous today. Will re-evaluate restarting home medications tomorrow if nausea resolved. (3) Hyperlipidemia Current Visit: Yes Comment: - Statin on hold (4) Hypertension Current Visit: Yes Comment: -BP remains elevated today. Lisinopril 10mg PO added to regimen. -Continue amlodipine and spironolactone (5) DVT prophylaxis Current Visit: Yes Comment: - Heparin SQ (6) Full code status Current Visit: Yes Comment: Status and Disposition: Inpatient, disposition per surgery
[2019-11-29] MEDS: Lisinopril TAB* 10 MG PO SCH (15:41)
[2019-11-30] MEDS: HYDROcodone/ACETAMIN 5-325 MG* 1 TAB PO PRN ×5 (00:31→19:55)
[2019-11-30] MEDS: NS 0.9% w/ 20 Meq KCL 1000 ML* 1,000 ML IV SCH ×2 (02:41→17:44)
[2019-11-30] MEDS: Ondansetron INJ* 2 MG/ML VIAL IV PRN (03:10)
[2019-11-30 05:27] LABS: BUN/Creatinine Ratio 21.9 (8-20); Calcium 8.3 mg/dL (8.6-10.3); EGFR African American 112.7 (>60); EGFR Non-African American 93.1 (>60); Magnesium 1.8 mg/dL (1.9-2.7); Phosphorus 2.7 mg/dL (2.5-5.0); Potassium 3.2 mmol/L (3.5-5.0)
[2019-11-30] MEDS: Heparin VIAL(*) 5000 UNITS/ML VIAL (FIVE THOUSAND) SUBCUT SCH ×3 (05:28→22:01)
[2019-11-30] MEDS ORDERED: Potassium Chloride* LIQUID 20 MEQ/15 ML UDC PO ONE (08:08)
[2019-11-30] MEDS: Spironolactone TAB* 25 MG PO SCH (08:30)
[2019-11-30] MEDS: Gabapentin CAP(*) 300 MG PO SCH ×3 (08:30→19:56)
[2019-11-30] MEDS ORDERED: Magnesium Sulfate 2 GM IV* 2 GM/50 ML BAG IVPB ONE (08:30)
[2019-11-30] MEDS: Lisinopril TAB* 10 MG PO SCH (08:30)
[2019-11-30] MEDS: amLODIPine TAB* 5 MG PO SCH (08:30)
[2019-11-30] MEDS: Nystatin CREAM* 15 GM TUBE TOPICAL SCH ×3 (08:32→19:54)
[2019-11-30] MEDS: Hydrocortisone 1% CREAM* 30 GM TUBE TOPICAL SCH ×2 (08:32→19:56)
[2019-11-30] MEDS: Metaxalone TAB* 800 MG PO SCH ×2 (08:32→19:56)
--- NOTE | 2019-11-30 08:51 | PN ---
Progress Note - Progress Note Date of Service: 11/30/19 SOAP: Subjective: Pt seen and examined. Feels much better today. pos flatus, loose BM improving nausea, no recent vomiting Objective: [] Temp Pulse Resp BP Pulse Ox 98.2 F 124 16 148/78 98 11/30/19 07:30 11/30/19 07:30 11/30/19 08:38 11/30/19 07:30 11/30/19 07:30 HR now 90s a and o x3, NAD abdo: soft/ ND/ NT vac dressing removed- staple line intact ext wnl labs noted Assessment: POD 7, MARYBETH, resolving ileus; electrolyte abnl Plan: advance diet replete lytes d/c planning labs in am
[2019-11-30] MEDS: KCL 20 MEQ/100 ML IVPREMIX* 20 MEQ/100 ML BAG IV SCH ×2 (11:02→14:12)
--- NOTE | 2019-11-30 15:17 | PN ---
Subjective Date of Service: 11/30/19 Interval History: Pt is alert and oriented x 3, reports that she is feeling much better today. Denies nausea denies vomiting. Pt denies any chest pain SOB dizziness. Family History: Unchanged from Admission Social History: Unchanged from Admission Past Medical History: Unchanged from Admission Objective Active Medications: Acetaminophen (Tylenol Tab*) 650 mg PO Q4H PRN PRN Reason: MILD PAIN OR TEMP > 101 Hydrocodone Bitart/Acetaminophen ([place] 5-325 Tab*) 1 tab PO Q4H PRN PRN Reason: PAIN - MODERATE Last Admin: 11/30/19 14:19 Dose: 1 tab Albuterol (Ventolin Hfa Inhaler*) 2 puff INH Q6H PRN PRN Reason: WHEEZING Last Admin: 11/27/19 21:33 Dose: 2 puff Amlodipine Besylate (Norvasc Tab*) 5 mg PO DAILY COUNT INCLUDES THE [facility] Last Admin: 11/30/19 08:30 Dose: 5 mg Diphenhydramine HCl (Benadryl Iv*) 25 mg IV Q6H PRN PRN Reason: ITCHING Last Admin: 11/28/19 08:51 Dose: 25 mg Gabapentin (Neurontin Cap(*)) 600 mg PO TID COUNT INCLUDES THE [facility] Last Admin: 11/30/19 14:17 Dose: 300 mg Heparin Sodium (Porcine) (Heparin Flush Picc/Ml/Cvc(*)) 0 ml FLUSH 0600,1800 COUNT INCLUDES THE [facility] Last Admin: 11/30/19 05:07 Dose: Not Given Heparin Sodium (Porcine) (Heparin Vial(*)) 5,000 units SUBCUT Q8HR COUNT INCLUDES THE [facility] Last Admin: 11/30/19 14:19 Dose: 5,000 units Hydralazine HCl (Apresoline Iv*) 5 mg IV SLOW PU Q6H PRN PRN Reason: SBP > 160 Last Admin: 11/29/19 12:02 Dose: 5 mg Hydrocortisone (Hytone Cream 1%*) 1 applic TOPICAL BID COUNT INCLUDES THE [facility] Last Admin: 11/30/19 08:32 Dose: Not Given Hydromorphone HCl (Dilaudid Inj*) 0.5 mg IV SLOW PU Q3H PRN PRN Reason: PAIN - MODERATE Last Admin: 11/28/19 12:11 Dose: 0.5 mg Potassium Chloride/Sodium Chloride (Ns 0.9% W/ 20 Meq Kcl 1000 Ml*) 1,000 mls @ 75 mls/hr IV PER RATE COUNT INCLUDES THE [facility] Last Admin: 11/30/19 02:41 Dose: 75 mls/hr Lisinopril (Prinivil Tab*) 10 mg PO DAILY COUNT INCLUDES THE [facility] Last Admin: 11/30/19 08:30 Dose: 10 mg Metaxalone (Skelaxin Tab*) 800 mg PO BID COUNT INCLUDES THE [facility] Last Admin: 11/30/19 08:32 Dose: Not Given Metoclopramide HCl (Reglan Tab*) 10 mg PO Q6H PRN PRN Reason: NAUSEA Miscellaneous (Ativan Pyxis Colon) 1 ea N/A .ATIVAN IV COLON PRN PRN Reason: PYXIS COLON Nystatin (Nystatin Cream*) 1 applic TOPICAL TID COUNT INCLUDES THE [facility] Last Admin: 11/30/19 14:32 Dose: Not Given Ondansetron HCl (Zofran Inj*) 4 mg IV Q6H PRN PRN Reason: NAUSEA Last Admin: 11/30/19 03:10 Dose: 4 mg Prochlorperazine Edisylate (Compazine Inj*) 10 mg IV Q6H PRN PRN Reason: NAUSEA/VOMITING Last Admin: 11/29/19 23:01 Dose: 10 mg Spironolactone (Aldactone Tab*) 25 mg PO DAILY COUNT INCLUDES THE [facility] Last Admin: 11/30/19 08:30 Dose: 25 mg Vital Signs - 8 hr 11/30/19 11/30/19 11/30/19 07:30 08:30 08:38 Temperature 98.2 F Pulse Rate 124 Respiratory 16 16 16 Rate Blood Pressure 148/78 (mmHg) O2 Sat by Pulse 98 Oximetry 11/30/19 11/30/19 11/30/19 09:08 10:30 11:08 Temperature Pulse Rate Respiratory 18 18 20 Rate Blood Pressure (mmHg) O2 Sat by Pulse Oximetry 11/30/19 11/30/19 11/30/19 11:25 14:17 14:19 Temperature 97.6 F Pulse Rate 94 Respiratory 18 18 18 Rate Blood Pressure 133/85 (mmHg) O2 Sat by Pulse 100 Oximetry Oxygen Devices in Use Now: None Appearance: Obese elderly woman laying left recumbent position does not appear to be in any distress. Eyes: No Scleral Icterus, PERRLA Ears/Nose/Mouth/Throat: NL Teeth, Lips, Gums, Clear Oropharnyx, Mucous Membranes Moist Neck: NL Appearance and Movements; NL JVP, Trachea Midline Respiratory: Symmetrical Chest Expansion and Respiratory Effort, Clear to Auscultation Cardiovascular: No Edema, - - pt does have murmur I would grade III, pt is aware of murmur Abdominal: NL Sounds; No Tenderness; No Distention, No Hepatosplenomegaly Lymphatic: No Cervical Adenopathy Extremities: - - +1 edema nonpitting Skin: No Rash or Ulcers, No Nodules or Sclerosis, - - Wound vac was removed today. Incision is well approximated stapels intact no drainage noted. Neurological: Alert and Oriented x 3, NL Sensation, NL Gait, NL Muscle Strength and Tone Result Diagrams: 11/29/19 05:45 11/30/19 04:52 Additional Lab and Data: . Assess/Plan/Problems-Billing Assessment: Ms. Marsh is a 64 yo F with a PMH of diabetes, hypertension, and multiple abdominal surgeries who was admitted on 11/23/19 with SBO. - Patient Problems (1) SBO (small bowel obstruction) Current Visit: Yes Comment: - To OR with Dr Sanchez 11/23/19, bezoar at jejuno-jejunal anastomosis - Management per surgery - IV and oral pain meds available - Wound vac removed today by Surgery wound is well healing (2) Diabetes Current Visit: Yes Comment: -Mild elevations in BG at times, continue to hold glipizide at this time. -Pt now on full liquid and tolerating well. pt denies nausea, denies vomiting (3) Hyperlipidemia Current Visit: Yes Comment: - Statin on hold (4) Hypertension Current Visit: Yes Comment: -BP in better control today. -Lisinopril 10mg PO added to regimen 11/28. -Continue amlodipine and spironolactone (5) Hypomagnesemia Current Visit: Yes Comment: -Mg 1.8 today another 2gm run ordered (6) DVT prophylaxis Current Visit: Yes Comment: - Heparin SQ (7) Full code status Current Visit: Yes Comment: Status and Disposition: Inpatient, disposition per surgery
[2019-11-30] MEDS ORDERED: NS 0.9% 500 ML* 500 ML IV ONE (19:49)
[2019-11-30] MEDS: Metoclopramide TAB* 10 MG PO PRN (19:55)
--- NOTE | 2019-11-30 19:58 | PN ---
Hospitalist Progress Note Date of Service: 11/30/19 Intermittent tachycardia noted since 11/28. Pt has progressed to full liquid diet. States that she has been taking in only small amounts. Did have a ensure shake today and believes that the sugar has upset her stomach. She has a hx of tello en y gastric bypass. Has had multiple liquid/soft BMs today although she states they were small. States she feels a little dehydrated. Denies any CP or SOB. Pt states that she got up to walk around and about 10 minutes later she had her vitals taken and noted elevated HR. PE: PERRL HRR, fast, S1/S2 present with 3/6 systolic murmur heard throughout, no rubs or gallops R radial PP 2+, regular, fast Lung sounds clear throughout bilaterally No noticeable edema PPP 2+ bilaterally Mild tenting of skin noted Mucous membranes appear moist Plan: NS 500ml bolus ordered X1 Will continue to follow
[2019-12-01] MEDS: HYDROcodone/ACETAMIN 5-325 MG* 1 TAB PO PRN ×2 (01:12→08:07)
[2019-12-01] MEDS: Heparin VIAL(*) 5000 UNITS/ML VIAL (FIVE THOUSAND) SUBCUT SCH (05:30)
[2019-12-01 06:27] LABS: Calcium 8.4 mg/dL (8.6-10.3); Magnesium 1.9 mg/dL (1.9-2.7); Potassium 3.5 mmol/L (3.5-5.0)
[2019-12-01 06:33] LABS: BUN/Creatinine Ratio 23.9 (8-20); EGFR Non-African American 82.6 (>60); Phosphorus 2.6 mg/dL (2.5-5.0)
[2019-12-01 07:44] VITALS: BP 126/67
[2019-12-01] MEDS: Gabapentin CAP(*) 300 MG PO SCH (08:06)
[2019-12-01] MEDS: Metoclopramide TAB* 10 MG PO PRN (08:06)
[2019-12-01] MEDS: Spironolactone TAB* 25 MG PO SCH (08:06)
[2019-12-01] MEDS: Metaxalone TAB* 800 MG PO SCH (08:07)
[2019-12-01] MEDS: amLODIPine TAB* 5 MG PO SCH (08:07)
[2019-12-01] MEDS: Lisinopril TAB* 10 MG PO SCH (08:07)
[2019-12-01] MEDS: Hydrocortisone 1% CREAM* 30 GM TUBE TOPICAL SCH (08:07)
[2019-12-01] MEDS: Nystatin CREAM* 15 GM TUBE TOPICAL SCH (08:08)
--- NOTE | 2019-12-01 08:15 | PN ---
Progress Note - Progress Note Date of Service: 12/01/19 Note: S: POD #8. Cont to improve. Less pain. Slight nausea; using Reglan; no Vomiting. Zane full liqs. +BM and flatus. O: Vital Signs - 8 hr 12/01/19 12/01/19 12/01/19 01:12 03:30 03:31 Temperature 97.6 F Pulse Rate 99 Respiratory 16 16 16 Rate Blood Pressure 105/67 (mmHg) O2 Sat by Pulse 98 Oximetry 12/01/19 12/01/19 12/01/19 07:43 08:06 08:07 Temperature 98.2 F Pulse Rate 95 Respiratory 17 18 18 Rate Blood Pressure 126/67 (mmHg) O2 Sat by Pulse 97 Oximetry Intake and Output Last 24 Hours 11/29/19 11/30/19 12/01/19 12/02/19 06:59 06:59 06:59 06:59 Intake Total 1814 1554 1624 880 Output Total 1600 1650 1350 Balance 214 -96 274 880 Intake: IV Fluids 1084 965 490 880 LR 1084 NS (0.9%) 490 NS (0.9%) 20 meq KCL 965 880 IVPB 109 64 Magnesium 2 gm 109 64 Oral 077 971 8825 Output: Urine 1400 1550 1350 Liquid Stool 100 Emesis 200 Other: Estimated Void Medium Large Date of Last Bowel 11/30/2019 t Movement # Bowel Movements 1 1 Estimated Stool Amount Medium Large # Voids 2 2 1 Gen: sitting up in chair; appears well Heart: reg; no change in murmur Lungs: clear ant Abd: incisions clean; daljit intact; soft; no appreciable tenderness Labs: Laboratory Tests 12/01/19 05:26 Potassium 3.5 Glucose 122 H Phosphorus 2.6 Magnesium 1.9 A: s/p expl lap, MARYBETH, bezoar at JJ anastomosis; postop ileus, resolved tachycardia, resolved P: ok for d/c to home today; slow advance of diet, emphasis on hydration and protein, which she understands. Office f/u next wk.
[2019-12-01] MEDS ORDERED: Magnesium Oxide TAB* 400 MG PO SCH (09:00)
[2019-12-01 09:26] LABS: ABS Eosinophils 0.4 10^3/ul (0-0.6); ABS Monocytes 0.9 10^3/ul (0-0.8); ABS Neutrophils 5.8 10^3/ul (1.5-7.7); Eosinophil % 4.7 %; Hematocrit 36 % (35-47); Lymphocyte % 11.9 %; Mean Corpuscular HGB Conc 34 g/dL (31-36); Mean Corpuscular Hemoglobin 29 pg (27-31); Mean Corpuscular Volume 87 fL (80-97); Mean Platelet Volume 8.1 fL (7.4-10.4); Platelet Count 312 10^3/uL (150-450); Red Blood Count 4.08 10^6 /uL (3.70-4.87); Red Cell Distribution Width 15 % (10-15); White Blood Count 8.1 10^3/uL (3.5-10.8)
--- NOTE | 2019-12-01 09:38 | DS ---
AMENDED REPORT NOW INCLUDES DESIGNATED COSIGNER CC: Dr. Salvatore Greco, [facility] * DISCHARGE SUMMARY: DATE OF ADMISSION: 11/23/19 DATE OF DISCHARGE: 12/01/19 ATTENDING SURGEON: Dr. Nilay Sanchez.* (DICTATED BY COTL ROMERO) HOSPITAL COURSE: Please refer to the admission history and physical and operative note for details. Briefly, the patient was admitted with evidence of small bowel obstruction and was taken to the operating room the evening of 11/22. Diagnostic laparoscopy was converted to exploratory laparotomy with extensive lysis of adhesions as well as break up of a bezoar, which was found in the region of the jejunojejunal anastomosis. An incidental appendectomy was also performed. The patient had a postoperative course characterized by ileus initially with gradual progression in GI function over the last couple of days. She did require some electrolyte correction. She was able to be transitioned to oral pain medications and oral Reglan, which she will continue on a p.r.n. basis upon discharge. As of the morning of discharge, she is tolerating full liquid diet well and she was instructed to advance slowly. Her pain was well controlled. Midline as well as laparoscopic incisions were healing well with daljit intact, which will be removed in the office next week. She will resume her usual home medications. In addition, she will use hydrocodone 5/325 p.r.n. for pain and transition back to her tramadol at her discretion. She will also use Reglan as noted. We will arrange for followup in our office for next week for staple removal. She is discharged to home in good condition. COLT ROMERO [id number]/[facility] #: [id number] [facility] HOSPITALIvett
== END 2019-12-01 10:25 | disposition home health service (06) | DRG 225 ==
LOC: ED 23:41 → SSU 11-23 02:44
PROVIDERS: ADMIT Surgery; ATTEND Surgery
PROC: 0WJG4ZZ Inspection of Peritoneal Cavity, Percutaneous Endoscopic Approach (ICD-10-PCS; 2019-11-23)
PROC: 0DNB0ZZ Release Ileum, Open Approach (ICD-10-PCS; 2019-11-23)
PROC: 0DN80ZZ Release Small Intestine, Open Approach (ICD-10-PCS; 2019-11-23)
PROC: 0DTJ0ZZ Resection of Appendix, Open Approach (ICD-10-PCS; principal; 2019-11-23 12:45)
DX: K56.50 Intestinal adhesions [bands], unspecified as to partial versus complete obstruction (principal); E87.2 Acidosis; Z68.42 Body mass index [BMI] 45.0-49.9, adult; M19.072 Primary osteoarthritis, left ankle and foot; E78.00 Pure hypercholesterolemia, unspecified; I10 Essential (primary) hypertension; M47.819 Spondylosis without myelopathy or radiculopathy, site unspecified; M19.042 Primary osteoarthritis, left hand; T18.3XXA Foreign body in small intestine, initial encounter; M19.041 Primary osteoarthritis, right hand; M19.071 Primary osteoarthritis, right ankle and foot; Z96.653 Presence of artificial knee joint, bilateral; E11.42 Type 2 diabetes mellitus with diabetic polyneuropathy; F32.9 Major depressive disorder, single episode, unspecified; E66.01 Morbid (severe) obesity due to excess calories; G89.29 Other chronic pain; Z96.1 Presence of intraocular lens; E78.5 Hyperlipidemia, unspecified; K56.7 Ileus, unspecified; E83.42 Hypomagnesemia; R00.0 Tachycardia, unspecified; Z79.899 Other long term (current) drug therapy; Z98.42 Cataract extraction status, left eye; Z88.5 Allergy status to narcotic agent; Z88.2 Allergy status to sulfonamides; Z88.8 Allergy status to other drugs, medicaments and biological substances; Z98.84 Bariatric surgery status; Z87.891 Personal history of nicotine dependence; Z91.030 Bee allergy status; Z98.41 Cataract extraction status, right eye; Z53.31 Laparoscopic surgical procedure converted to open procedure
CPT/HCPCS: 36415; 71045; 74177; 80048; 80053; 81003; 82306; 82607; 82746; 83605; 83690; 83735; 84100; 84425; 85025; 86140; 86850; 86870; 86880; 86900; 86901; 88304; 93005; 96374; 96375; 99284; A9270-GY; J0330; J0360; J0690; J0780; J1100; J1170; J1200; J1240; J1644; J1885; J2060; J2250; J2270; J2405; J2704; J2765; J3010; J3475; J3480; J3490; Q9967

== ENCOUNTER 2019-12-05 16:15 | Inpatient (IN) | payer BC, MEDICARE ==
--- NOTE | 2019-12-05 16:32 | ED ---
Abdominal Pain/Female - HPI Summary HPI Summary: Patient is a 64 y/o F presenting to the ED for a chief complaint of epigastric abdominal pain and abdominal distention. Patient states she has had acid reflex. She describes the abdominal pain as a pressure sensation. Eight days ago , patient had an appendectomy with small bowel obstruction surgery performed by Dr. Nilay Sanchez. Prior to her surgery, patient had bilateral LE edema that is unchanged. Patient notes erythema near the abdominal incision site. Last bowel movement was on 12/04/19 that she describes as small in size. Patient denies fever, chest pain, shortness of breath, or vomiting. No aggravating or alleviating factors are reported. PMHx is significant for DM. Patient contacted Dr. Soha Manzano who recommended patient be seen at [facility]. - History of Current Complaint Chief Complaint: EDAbdPain Stated Complaint: UPPER ABD PAIN PER PT Time Seen by Provider: 12/05/19 16:21 Hx Obtained From: Patient Onset/Duration: Sudden Onset, Still Present Timing: Constant Severity Initially: Severe Severity Currently: Severe Pain Intensity: 8 Pain Scale Used: 0-10 Numeric Location: Epigastric Radiates: No Character: Other: - Pressure Aggravating Factor(s): Nothing Alleviating Factor(s): Nothing Associated Signs and Symptoms: Negative: Fever, Chest Pain, Vomiting Allergies/Adverse Reactions: Allergies Allergy/AdvReac Type Severity Reaction Status Date / Time Adhesive Tape Allergy Unknown Verified 12/05/19 16:16 Reaction Details bee venom protein (honey bee) Allergy Swelling Verified 12/05/19 16:16 Of Face,Lips,& Throat codeine Allergy Facial Verified 12/05/19 16:16 Redness/Flushing pregabalin [From Lyrica] Allergy Hives Verified 12/05/19 16:16 Sulfa (Sulfonamide Allergy Hives Verified 12/05/19 16:16 Antibiotics) bupropion [From Wellbutrin] AdvReac See Comment Verified 12/05/19 16:16 chlorthalidone AdvReac Unknown Verified 12/05/19 16:16 Reaction Details duloxetine [From Cymbalta] AdvReac See Comment Verified 12/05/19 16:16 sertraline [From Zoloft] AdvReac See Comment Verified 12/05/19 16:16 SEASONAL Allergy Congestion Uncoded 12/05/19 16:16 Home Medications: Home Medications traMADol TAB* [Ultram*] 50 - 100 mg PO Q8HR PRN 11/23/12 [History Confirmed ] Cyanocobalamin INJ * [Vitamin B12 INJ *] 1,000 mcg IM MONTHLY 03/15/15 [History Confirmed 12/05/19] Gabapentin TAB(NF) [Neurontin 600 mg TAB(NF)] 1,200 mg PO TID 03/15/15 [History Confirmed 12/05/19] Acetaminophen TAB* [Tylenol TAB*] 1,000 mg PO BID PRN 03/23/15 [History Confirmed 12/05/19] Fenofibrate(NF) [Tricor(NF)] 145 mg PO DAILY 11/23/19 [History Confirmed ] HYDROcodone/ACETAMIN 5-325 MG* [[place] 5-325 TAB*] 1 tab PO Q4H PRN #15 tab MDD 6 12/01/19 [Rx Confirmed 12/05/19] Metoclopramide TAB* [Reglan TAB*] 10 mg PO Q6H PRN #12 tab MDD 4 12/01/19 [Rx Confirmed 12/05/19] Nystatin CREAM* 1 applic TOPICAL TID tube 12/01/19 [Rx Confirmed 12/05/19] Albuterol HFA INHALER* [Ventolin HFA Inhaler*] 2 puff INH .Q4-6H PRN 12/05/19 [ History Confirmed 12/05/19] Atorvastatin* [Lipitor*] 40 mg PO DAILY 12/05/19 [History Confirmed 12/05/19] Fluticasone NASAL SPRAY 50MCG* [Flonase NASAL SPRAY 50MCG*] 2 spray BOTH NARES DAILY 12/05/19 [History Confirmed 12/05/19] Metaxalone TAB* [Skelaxin TAB*] 800 mg PO BID 12/05/19 [History Confirmed ] Spironolactone TAB* [Aldactone TAB*] 25 mg PO DAILY 12/05/19 [History Confirmed 12/05/19] diPHENhydraMINE PO* [Benadryl PO 25 MG TAB*] 50 mg PO QPM PRN 12/05/19 [History Confirmed 12/05/19] glipiZIDE TAB* [Glucotrol TAB*] 2.5 mg PO DAILY 12/05/19 [History Confirmed ] PMH/Surg Hx/FS Hx/Imm Hx Previously Healthy: Yes Endocrine/Hematology History: Reports: Hx Diabetes, Hx Thyroid Disease - HYPOTHYROID RESOLVED, LATE TEENS AND EARLY 20'S Cardiovascular History: Reports: Hx Hypercholesterolemia, Hx Hypertension - currently resolved, Respiratory History: Denies: Hx Asthma, Hx Chronic Obstructive Pulmonary Disease (COPD) GI History: Reports: Hx Obstructive Bowel, Hx Ulcer - peptic, Other GI Disorders - GASTRIC BYPASS WITH TELLO-N-Y 2002 History: Reports: Hx Kidney Stones - 2006 RENAL ULTRASOUND AND LASER TO BREAK UP, HAD STENT Musculoskeletal History: Reports: Hx Arthritis - OSTEO SPINE, HANDS, FEET, ANKLES, KNEES Sensory History: Reports: Hx Cataracts, Hx Contacts or Glasses - WEARS GLASSES Denies: Hx Glaucoma, Hx Hearing Aid Opthamlomology History: Reports: Hx Cataracts, Hx Contacts or Glasses - WEARS GLASSES Denies: Hx Glaucoma Neurological History: Reports: Hx Headaches - controlled with medication, Hx Nerve Disease - peripheral neurapathy - Cancer History Hx Chemotherapy: No Hx Radiation Therapy: No - Surgical History Surgical History: Yes Surgery Procedure, Year, and Place: Gastric Bypass 2002, hernia repair, Kidney stone left (laser and stent), Hysterectomy 2006, Right knee replacement surgery 2011, Dental extractions 2010.lt knee replacement 2013, choley with gastric bypass. 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 X2, BREAST AND CHEST AND L KNEE Denies: Hx Hepatitis, Hx Human Immunodeficiency Virus (HIV), Traveled Outside the [place] in Last 30 Days - Family History Known Family History: Positive: Other - [place] - Social History Occupation: Employed Full-time Lives: With Family Alcohol Use: Rare Alcohol Amount: 1 BEER OR DRINK A MONTH AT MOST Hx Substance Use: No Substance Use Type: Reports: None Hx Tobacco Use: Yes Smoking Status (MU): Former Smoker Type: Cigarettes Amount Used/How Often: SMOKED 2 PPD FOR 10 YEARS Have You Smoked in the Last Year: No Review of Systems Negative: Fever Negative: Chest Pain Negative: Shortness Of Breath Positive: Abdominal Pain - Epigastric, Other - Positive abdominal distention. Negative: Vomiting Positive: Edema - Bilateral LE Positive: Other - Positive erythema of the abdominal incision site All Other Systems Reviewed And Are Negative: Yes Physical Exam - Summary Physical Exam Summary: Constitutional: Well-developed, Well-nourished, Alert. (-) Distressed Skin: Warm, Dry HENT: Normocephalic; Atraumatic Eyes: Conjunctiva normal Neck: Musculoskeletal ROM normal neck. (-) JVD, (-) Stridor, (-) Tracheal deviation Cardio: Rhythm irregular, Tachycardic, Heart sounds normal; Intact distal pulses ; The pedal pulses are 2+ and symmetric. Radial pulses are 2+ and symmetric. (- ) Murmur Pulmonary/Chest wall: Effort normal. (-) Respiratory distress, (-) Wheezes, (-) Rales Abd: Soft, (-) Guarding, (-) Rebound. Distended abdomen, mild erythema around surgical sites, no wound desistance or purulent discharge, tender to palpation. Musculoskeletal: (-) Edema Lymph: (-) Cervical adenopathy Neuro: Alert, Oriented x3 Psych: Mood and affect Normal Triage Information Reviewed: Yes Vital Signs On Initial Exam: Initial Vitals Temp Pulse Resp BP Pulse Ox 97.6 F 119 18 170/97 98 12/05/19 16:16 12/05/19 16:16 12/05/19 16:16 12/05/19 16:16 12/05/19 16:16 Vital Signs Reviewed: Yes Procedures - Sedation Patient Received Moderate/Deep Sedation with Procedure: No Diagnostics - Vital Signs Vital Signs Temp Pulse Resp BP Pulse Ox 12/05/19 16:16 97.6 F 119 18 170/97 98 - Laboratory Result Diagrams: 12/06/19 05:18 12/06/19 05:18 Lab Statement: Any lab studies that have been ordered have been reviewed, and results considered in the medical decision making process. - Radiology Chest X-ray Radiology Interpretation Completed By: Radiologist Summary of Radiographic Findings: Chest X-ray IMPRESSION: NO ACTIVE CARDIOPULMONARY DISEASE IS NOTED. Reviewed by Dr. Lynn. - CT Abdomen/Pelvis CT CT Interpretation Completed By: Radiologist Summary of CT Findings: Abdomen/Pelvis CT IMPRESSION: There is dilatation of the excluded portion of the stomach, duodenum and proximal jejunum just proximal to the anastomosis of the distal tello limb. There are postoperative collection is just inferior to the liver deep to the rectus muscle measuring 7.8 cm in length x 2.3 cm AP x 4 cm in width. In addition there is additional collection adjacent to the umbilicus in the subcutaneous tissue measuring up to just under the incision measuring up to 15 cm in length x 3.5 cm AP x 4.4 cm in width. Reviewed by Dr. Lynn. Abdominal Pain Fem Course/Dx - Course Course Of Treatment: Patient is a 64 y/o F presenting to the ED for a chief complaint of epigastric abdominal pain and abdominal distention. She describes the abdominal pain as a pressure sensation. Eight days ago, patient had an appendectomy with small bowel obstruction surgery performed by Dr. Nilay Sanchez. Prior to her surgery, patient had bilateral LE edema that is unchanged. Patient notes erythema near the abdominal incision site. Last bowel movement was on that she describes as small in size. Patient denies fever, chest pain, shortness of breath, or vomiting. PMHx is significant for DM. On exam, tachyardic, irregular rhythm, distended abdomen, mild erythema around surgical sites, no wound desistance or purulent discharge, abdomen tender to palpation. In the ED course, patient was given piperacillin 3.375 gm IVPB, Zofran 4 mg IV, Dilaudid 1 mg IV, iodixanol 141 ml IV, and IV fluids. Abdomen/Pelvis CT IMPRESSION: There is dilatation of the excluded portion of the stomach, duodenum and proximal jejunum just proximal to the anastomosis of the distal tello limb. There are postoperative collection is just inferior to the liver deep to the rectus muscle measuring 7.8 cm in length x 2.3 cm AP x 4 cm in width. In addition there is additional collection adjacent to the umbilicus in the subcutaneous tissue measuring up to just under the incision measuring up to 15 cm in length x 3.5 cm AP x 4.4 cm in width. Chest X-ray IMPRESSION: NO ACTIVE CARDIOPULMONARY DISEASE IS NOTED. Laboratory abnormal findings: Alkaline phosphatase 141, CRP 147. All other abnormal lab results are not pertinent to current cc. At 18:09, Dr. Julian Russell reviewed the patients case and agrees [place] [facility] [place] a diagnosis of post op complication and abdominal wall cellulitis. Patient will be [place] [facility] [place] diagnosis of post op complication and abdominal wall cellulitis. - Diagnoses Provider Diagnoses: Post-operative complication, Abdominal wall cellulitis - Provider Notifications Discussed Care Of Patient With: Julian Russell - At 18:09, Dr. Julian Russell reviewed the patients case and agrees to [place] the [place] [facility] [place] diagnosis of post op complication and abdominal wall cellulitis. Time Discussed With Above Provider: 18:09 Instructed by Provider To: Admit As Inpatient Discharge ED - Sign-Out/Discharge Documenting (check all that apply): Patient Departure - Admit - Discharge Plan Condition: Stable Disposition: ADMITTED TO [facility] - Billing Disposition and Condition Condition: STABLE Disposition: Admitted to [facility] - Attestation Statements Document Initiated by Nickibe: Yes Documenting Scribe: Sherrill Neves Provider For Whom Nickibe is Documenting (Include Credential): Andres Lynn DO Scribsanjeev Attestation: Sherrill Peterson scribed for Andres Lynn DO on 12/06/19 at 0721. Scribe Documentation Reviewed: Yes Provider Attestation: The documentation as recorded by the Sherrill cordoba accurately reflects the service I personally performed and the decisions made by Andres kim DO Status of Scrbob Document: Viewed
[2019-12-05] MEDS ORDERED: Piperacillin/Tazobac ADVAN(*) 3.375 GM in NS 0.9% 100 ML* 100 ML IVPB ONE (16:34)
[2019-12-05] MEDS ORDERED: NS 0.9% 1000 ML** 1,000 ML IV ONE (16:34)
[2019-12-05] MEDS ORDERED: HYDROmorphone INJ* 0.5 MG/0.5 ML SYRINGE IV ONE (16:47)
[2019-12-05] MEDS ORDERED: Ondansetron INJ* 2 MG/ML VIAL IV ONE (16:47)
[2019-12-05 17:06] LABS: ABS Eosinophils 0.2 10^3/ul (0-0.6); ABS Lymphocytes 0.9 10^3/ul (1.0-4.8); ABS Monocytes 0.8 10^3/ul (0-0.8); ABS Neutrophils 7.4 10^3/ul (1.5-7.7); Eosinophil % 2.4 %; Hematocrit 31 % (35-47); Hemoglobin 10.4 g/dL (12.0-16.0); Lymphocyte % 9.6 %; Mean Corpuscular HGB Conc 33 g/dL (31-36); Mean Corpuscular Hemoglobin 30 pg (27-31); Mean Corpuscular Volume 89 fL (80-97); Mean Platelet Volume 8.8 fL (7.4-10.4); Platelet Count 225 10^3/uL (150-450); Red Blood Count 3.51 10^6 /uL (3.70-4.87); Red Cell Distribution Width 15 % (10-15); White Blood Count 9.4 10^3/uL (3.5-10.8)
[2019-12-05] MEDS ORDERED: Iodixanol* (CONTRAST) 320 MG/ML 100 ML SDV IV ONE (17:15)
[2019-12-05 17:25] LABS: Albumin 3.5 g/dL (3.2-5.2); Albumin/Globulin Ratio 1.2 (1-3); BUN/Creatinine Ratio 22.2 (8-20); C Reactive Protein 146.77 mg/L (<8.01); Calcium 9.4 mg/dL (8.6-10.3); EGFR African American 98.4 (>60); EGFR Non-African American 81.3 (>60); Potassium 3.4 mmol/L (3.5-5.0); Total Bilirubin 0.6 mg/dL (0.2-1.0); Total Protein 6.5 g/dL (6.4-8.9)
--- OUTSIDE RECORDS SUMMARY | 2019-12-05 18:08 | XMS REPORT ---
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 Carrier RN obstruction obstruction , , unspecified unspecified as to as to partial partial versus versus complete complete obstruction obstruction Pain frequent Pain Mgmt Active 2020-0 Juany pain 12-01 [place] 09:00: [id number] Cardio edema Cardiovasc Active 2020-0 Juany ular 12-01 [place] 09:00: [id number] Cardio knowledge/s Cardiovasc Active 2020-0 Juany kill ular 12-01 [place] deficit: pt 09:00: [id number] Respiratory dyspnea Respirator Active 2020-0 Juany present y 12-01 [place] 09:00: [id number] 00 Integument surgical Integument Active 2020-0 Juany wound 12-01 [place] present 09:00: [id number] Nutrition nutritional Nutrition Active 2020-0 Juany restriction 12-01 [place] s 09:00: [id number] Elimination urinary Eliminatio Active 2020-0 Juany incontinenc n 12-01 [place] e 09:00: [id number] 00 Elimination constipatio Eliminatio Active 2020-0 Juany n n 12-01 [place] 09:00: [id number] 00 Neuro confusion Neuro/Emot Active 2020-0 Juany present ion 12-01 [place] 09:00: [id number] Activity ADL Activity Active 2020-0 Juany assistance 12-01 [place] required 09:00: [id number] Activity self-care Activity Active 2020-0 Juany deficit 12-01 [place] 09:00: [id number] 00 Safety cannot be Safety Active 2020-0 Juany left alone 12-01 [place] 09:00: [id number] 00 Safety fall risk Safety Active 2019-0 Juany factor 12-01 [place] present 09:00: [id number] Safety risk for Safety Active 2019- Juany hospitaliza 12-01 [place] tion 09:00: [id number] Medication oral med Meds Active 2019-0 Juany assistance 12-01 [place] required 09:00: [id number] Musculoskel requires Musculoske Active [facility] etal human letal 12-01 [place] assist to 09:00: [id number] leave home 00 Allergies, Adverse Reactions, Alerts Allergy Name Allergy Status Severity Reaction(s) Onset Inactive Treating Comments Type Date Date Clinician Adhesive Unknown Active Unknown Reaction 2019-0 Interface Tape Unknown 12-01 codeine Base Active Unknown Reaction 2020-0 Unknown Ingredient Unknown 12-01 pregabalin Base Active Unknown Reaction 2020-0 Interface Ingredient Unknown 12-01 Sulfa Unknown Active Unknown Reaction 2020-0 Interface (Sulfonamide Unknown 12-01 Antibiotics) bupropion Base Active Unknown Reaction 2019-0 Interface Ingredient Unknown 12-01 chlorthalido Base Active Unknown Reaction 2020-0 Interface ne Ingredient Unknown 12-01 duloxetine Base Active Unknown Reaction 2020-0 Interface Ingredient Unknown 12-01 sertraline Base Active Unknown Reaction 2020-0 Interface Ingredient Unknown 12-01 Bee Stings Unknown Active Unknown Reaction 2020-0 Interface Unknown 12-01 SEASONAL Unknown Active Unknown Reaction 2019-0 Interface Unknown 12-01 Medications Ordered Filled Start Stop Current Ordering Indication Dosage Frequency Signature Comments Components Medication Medication Date Date Medication? Clinician (SIG) Name Name HYDROcodone HYDROcodone 0 Yes Angus Unknown Unknown 5 5 12-01 Salvatore MURRAY mg-acetamin mg-acetamin ophen 325 ophen 325 mg tablet mg tablet metoclopram metoclopram 2019-0 Yes Angus Unknown Unknown fox 10 mg fox 10 mg 12-01 Salvatore MURRAY tablet tablet albuterol albuterol 2019-0 Yes Angus Unknown Unknown sulfate HFA sulfate HFA 12-01 Salvatore MURRAY 90 90 mcg/actuati mcg/actuati on aerosol on aerosol inhaler inhaler nystatin nystatin 2019-0 Yes Angus Unknown Unknown 100,000 100,000 12-01 Salvatore MURRAY unit/gram unit/gram topical topical cream cream traMADoL 50 traMADoL 50 2020-0 Yes Angus Unknown Unknown mg tablet mg tablet 12-01 Salvatore MURRAY metaxalone metaxalone 2019-0 Yes Angus Unknown Unknown 800 mg 800 mg 12-01 Salvatore MURRAY tablet tablet glipiZIDE glipiZIDE 2019-0 Yes Angus Unknown Unknown ER 5 mg ER 5 mg 12-01 Salvatore MURRAY tablet, tablet, extended extended release 24 release 24 hr hr BenadryL 25 BenadryL 25 2019-0 Yes Angus Unknown Unknown mg capsule mg capsule 12-01 Salvatore MURRAY cyanocobala cyanocobala 2019-0 Yes Angus Unknown Unknown min (vit min (vit 12-01 ,Salvatore B-12) 1,000 B12) 1,000 mcg/mL mcg/mL injection injection kit kit gabapentin gabapentin 2019-0 Yes Angus Unknown Unknown 600 mg 600 mg 12-01 Salvatore MURRAY tablet tablet cholecalcif cholecalcif 2019-0 Yes Angus Unknown Unknown dinh dinh 12-01 Salvatore MURRAY (vitamin (vitamin D3) 250 mcg D3) 250 mcg (10,000 (10,000 unit) unit) capsule capsule Acetaminoph Acetaminoph 2019-0 Yes Angus Unknown Unknown en Extra en Extra 12-01 Salvatore MURRAY Strength Strength 500 mg 500 mg tablet tablet spironolact spironolact 2019-0 Yes Angus Unknown Unknown one 25 mg one 25 mg 12-01 Salvatore MURRAY tablet tablet atorvastati atorvastati 2019-0 Yes Angus Unknown Unknown n 40 mg n 40 mg 12-01 Salvatore MURRAY tablet tablet fenofibrate fenofibrate 2019-0 Yes Nagus Unknown Unknown nanocrystal nanocrystal 12-01 Salvatore MURRAY lized 145 lized 145 mg tablet mg tablet Vital Signs Vital Name Observation Time Observation Value Comments SYSTOLIC mm[Hg] 2019-12-02 18:11:05 136 mm[Hg] mm[Hg] Method: Sit SYSTOLIC mm[Hg] 2019-12-02 18:11:05 140 mm[Hg] mm[Hg] Method: Stand DIASTOLIC mm[Hg] 2019-12-02 18:11:05 70 mm[Hg] mm[Hg] Method: Sit DIASTOLIC mm[Hg] 2019-12-02 18:11:05 70 mm[Hg] mm[Hg] Method: Stand PULSE 2019-12-02 18:11:05 88 /min /min RESP RATE 2019-12-02 18:11:05 16 /min /min TEMP 2019-12-02 18:11:05 98.1 [degF] Procedures This patient has no known procedures. Results This patient has no known results.
--- OUTSIDE RECORDS SUMMARY | 2019-12-05 18:08 | XMS REPORT | Continuity of Care Document ---
:1955 External Reference #:[id number] Author Name JAQUELINE Hobbs (transmitted by agent of provider Angelique Lopez) Address [address] [place] [address] Care Team Providers Name Role Phone Salvatore Greco MD - Family Medicine Care Team Information Record Retrieval Specialist Viraj Bryan MD - Interventional Care Team Information Record Retrieval Specialist [phone] Cardiology Problems Active Problems Provider Date Idiopathic peripheral neuropathy Sherrill Cartwright M.D. Onset: 06/07/2015 Chronic migraine without aura, not intractable, Sherrill Cartwright M.D. 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 Gabapentin 2 tabs by mouth 540tabs Sehrrill Cartwright, 06/07/2012 600mg Tablets three times a M.D. day Tramadol HCL ER 1-2 po q 8h as 60tabs Unknown 50mg needed for pain Tablets ER 24HR Fibricor 1 tab po daily Unknown 145mg Tablets Vitamin D-3 by mouth every Unknown 5000Unit day Tablets Benadryl Allergy qhs prn Unknown 25mg Capsules Tylenol Extra Strength 2 by mouth twice Unknown daily prn 500mg Tablets Hydrocortisone apply to Unknown 0.5% Cream affected area twice a day prn Magnesium 1 by mouth daily Unknown 500mg Capsules as needed Ranitidine HCL 1 tab qd Unknown 150mg Tablets Escitalopram Oxalate Take 1 Tablet By Unknown 10mg Mouth Every Day Tablets Atorvastatin Calcium Take 1 Tablet By Unknown 40mg Mouth Every Day Tablets Metformin HCL Take 1 Tablet By Unknown 500mg Mouth Two Times Tablets Daily Lisinopril Take 1 Tablet By Unknown 20mg Tablets Mouth Every Day Immunizations Description No Information Available Vital Signs Date Vital Result Comment 04/15/2019 1:27pm Height 62 inches 5'2" Weight 261.00 lb Heart Rate 64 /min BP Systolic Sitting 106 mmHg Rue BP Diastolic Sitting 74 mmHg Rue BMI (Body Mass Index) 47.7 kg/m2 12/30/2017 8:37am Height 62 inches 5'2" Weight 258.00 lb Heart Rate 76 /min BP Systolic 104 mmHg BP Diastolic 66 mmHg Respiratory Rate 14 /min BMI (Body Mass Index) 47.2 kg/m2 Results Description No Information Available Procedures Description No Information Available Medical Devices Description No Information Available Encounters Type Date Location Provider Dx Diagnosis Office Visit 11/30/2019 [place] Kerwin Medina NP K56.609 [facility] 2:13p Assoc,pc obst, unsp as to Hospitalists partial versus complete obst E11.9 Type 2 diabetes mellitus without complications I10 Essential (primary) hypertension E83.42 Hypomagnesemia E78.5 Hyperlipidemia, unspecified Office Visit 11/29/2019 2:12p [place] Kerwin Medina K56.609 Unsp intestnl Assoc,pc CURRICULUM AND ASSESSMENT COORDINATOR obst, unsp as Hospitalists to partial versus complete obst E11.9 Type 2 diabetes mellitus without complications I10 Essential (primary) hypertension E78.5 Hyperlipidemia, unspecified Office Visit 11/28/2019 2:12p [facility] Alycia K56.609 Unsp intestnl Assoc,pc JAQUELINE Bhakta obst, unsp as Hospitalists to partial versus complete obst I10 Essential (primary) hypertension E11.9 Type 2 diabetes mellitus without complications E78.5 Hyperlipidemia, unspecified Office Visit 11/27/2019 2:11p [place] Kerwin Tong K56.609 Unsp intestnl Assoc,pc JAQUELINE Bhakta obst, unsp as Hospitalists to partial versus complete obst E11.9 Type 2 diabetes mellitus without complications I10 Essential (primary) hypertension E78.5 Hyperlipidemia, unspecified Office Visit 11/26/2019 2:11p [place] Kerwin Hernandez, K56.609 Unsp intestnl Assoc,pc N.P. obst, unsp as Hospitalists to partial versus complete obst I10 Essential (primary) hypertension E78.5 Hyperlipidemia, unspecified E11.9 Type 2 diabetes mellitus without complications Office Visit 11/25/2019 2:02p [place] Kerwin Hernandez, K56.609 Uns intestnl Assoc,pc N.P. obst, unsp as Hospitalists to partial versus complete obst I10 Essential (primary) hypertension E78.5 Hyperlipidemia, unspecified E11.9 Type 2 diabetes mellitus without complications Office Visit 11/24/2019 2:01p [place] Kerwin Hernandez, K56.609 Unsp intestnl Assoc,pc N.P. obst, unsp as Hospitalists to partial versus complete obst I10 Essential (primary) hypertension E78.5 Hyperlipidemia, unspecified Office Visit 11/23/2019 [facility] Nancy K56.609 Unsp intestnl 2:01p Assoc,pc COLT Smith obst, unsp as Hospitalists to partial versus complete obst E87.2 Acidosis I10 Essential (primary) hypertension E78.5 Hyperlipidemia, unspecified Assessments Date Code Description Provider 12/01/2019 K56.609 Unspecified intestinal obstruction, COLT Hayes unspecified as to partial versus complete obstruction 11/30/2019 K56.609 Unspecified intestinal obstruction, Aden Medina NP unspecified as to partial versus complete obstruction 11/30/2019 K56.609 Unspecified intestinal obstruction, Nilay Sanchez MD, FACS unspecified as to partial versus complete obstruction 11/30/2019 E11.9 Type 2 diabetes mellitus without Aden Medina NP complications 11/30/2019 I10 Essential (primary) hypertension Aden Medina, CURRICULUM AND ASSESSMENT COORDINATOR 11/30/2019 E83.42 Hypomagnesemia Aden Medina, CURRICULUM AND ASSESSMENT COORDINATOR 11/30/2019 E78.5 Hyperlipidemia, unspecified Aden Medina, CURRICULUM AND ASSESSMENT COORDINATOR 11/29/2019 K56.609 Unspecified intestinal obstruction, Aden Medina NP unspecified as to partial versus complete obstruction 11/29/2019 K56.609 Unspecified intestinal obstruction, COLT Hayes unspecified as to partial versus complete obstruction 11/29/2019 E11.9 Type 2 diabetes mellitus without Aden Medina NP complications 11/29/2019 I10 Essential (primary) hypertension Aden Medina, CURRICULUM AND ASSESSMENT COORDINATOR 11/29/2019 E78.5 Hyperlipidemia, unspecified Aden Medina, CURRICULUM AND ASSESSMENT COORDINATOR 11/28/2019 K56.609 Unspecified intestinal obstruction, Alyciaelida Bhakta, VENDING MACHINE TECHNICIAN unspecified as to partial versus complete obstruction 11/28/2019 I10 Essential (primary) hypertension Alyciaelida Bhakta, VENDING MACHINE TECHNICIAN 11/28/2019 E11.9 Type 2 diabetes mellitus without Alycai Yony, VENDING MACHINE TECHNICIAN complications 11/28/2019 E78.5 Hyperlipidemia, unspecified Alycia Bhakta, VENDING MACHINE TECHNICIAN 11/27/2019 K56.609 Unspecified intestinal obstruction, Alycia Yony, VENDING MACHINE TECHNICIAN unspecified as to partial versus complete obstruction 11/27/2019 E11.9 Type 2 diabetes mellitus without Alycia Yony, VENDING MACHINE TECHNICIAN complications 11/27/2019 I10 Essential (primary) hypertension Alycia Yony, VENDING MACHINE TECHNICIAN 11/27/2019 E78.5 Hyperlipidemia, unspecified Alycia Bhakta, VENDING MACHINE TECHNICIAN 11/26/2019 K56.609 Unspecified intestinal obstruction, Vale Hernandez, N.P. unspecified as to partial versus complete obstruction 11/26/2019 I10 Essential (primary) hypertension Vale Hernandez, N.P. 11/26/2019 E78.5 Hyperlipidemia, unspecified Vale Hernandez, N.P. 11/26/2019 E11.9 Type 2 diabetes mellitus without Vale Hernandez, N.P. complications 11/25/2019 K56.609 Unspecified intestinal obstruction, Vale Hernandez, N.P. unspecified as to partial versus complete obstruction 11/25/2019 I10 Essential (primary) hypertension Vale David, N.P. 11/25/2019 E78.5 Hyperlipidemia, unspecified Vale David, N.P. 11/25/2019 E11.9 Type 2 diabetes mellitus without Vale David, N.P. complications 11/24/2019 K56.609 Unspecified intestinal obstruction, Valecherry Hernandez, N.P. unspecified as to partial versus complete obstruction 11/24/2019 I10 Essential (primary) hypertension Vale David, N.P. 11/24/2019 E78.5 Hyperlipidemia, unspecified Vale David, N.P. 11/23/2019 K56.609 Unspecified intestinal obstruction, COLT Santos unspecified as to partial versus complete obstruction 11/23/2019 E87.2 Acidosis COLT Santos 11/23/2019 I10 Essential (primary) hypertension COLT Santos 11/23/2019 E78.5 Hyperlipidemia, unspecified COLT Santos Plan of Treatment Future Appointment(s):12/08/2019 10:00 am - Nilay Sanchez MD, FACS at [facility]03/23/2020 10:00 am - Sherrill Cartwright M.D. at [facility]04/15/2019 - Sherrill Cartwright M.D.G60.8 Other hereditary and idiopathic neuropathiesFollow up:1 yearG43.709 Chronic migraine without aura, not intractable, without status degilwrjbtzP05.5 Low back painNew Therapy:Physical CbubxunT38.31 Sciatica, right sideNew Therapy:Physical Therapy Functional Status Description No Information Available Mental Status Description No Information Available Referrals Description No Information Available
--- OUTSIDE RECORDS SUMMARY | 2019-12-05 18:08 | XMS REPORT | Continuity of Care Document ---
:1955 External Reference #:[id number] Author Name COLT Santos (transmitted by agent of provider Angelique Lopez) Address [address] [place] [address] Care Team Providers Name Role Phone Salvatore Greco MD - Family Medicine Care Team Information Juke Box Servicer [phone] Viraj Bryan MD - Interventional Care Team Information Juke Box Servicer [phone] Cardiology Problems Active Problems Provider Date Idiopathic [...] M.D. Gabapentin 2 tabs by mouth 540tabs Sherrill Cartwright, 06/07/2012 600mg Tablets three times a [...] Date Location Provider Dx Diagnosis Office Visit 11/25/2019 [place] Kerwin Hernandez N.PKarely K56.609 Unsp intestnl 2:02p Assoc,pc obst, unsp as to Hospitalists partial versus complete obst I10 Essential (primary) hypertension E78.5 Hyperlipidemia, unspecified E11.9 Type 2 diabetes mellitus without complications Office Visit 11/24/2019 2:01p [place] Kerwin Hernandez K56.609 Unsp intestnl Assoc,pc N.P. obst, unsp as Hospitalists to partial versus complete obst I10 Essential (primary) hypertension E78.5 Hyperlipidemia, unspecified Office Visit 11/23/2019 [facility] K56.609 Unsp intestnl 2:01p Assoc,COLT Deutsch obst, unsp as Hospitalists to partial versus complete obst E87.2 Acidosis I10 Essential (primary) hypertension E78.5 Hyperlipidemia, unspecified Assessments Date Code Description Provider 12/01/2019 K56.609 Unspecified intestinal obstruction, COLT Hayes unspecified as to partial versus complete obstruction 11/30/2019 K56.609 Unspecified intestinal obstruction, Aden Medina NP unspecified as to partial versus complete obstruction 11/30/2019 K56.609 Unspecified intestinal obstruction, Nilay Sanchez MD, [facility] unspecified as to partial versus complete obstruction 11/30/2019 E11.9 Type 2 diabetes mellitus without Aden Medina NP complications 11/30/2019 I10 Essential (primary) hypertension Aden Medina NP 11/30/2019 E83.42 Hypomagnesemia Aden Medina LINE CLEARANCE FOREMAN 11/30/2019 E78.5 Hyperlipidemia, unspecified Aden Medina LINE CLEARANCE FOREMAN 11/29/2019 K56.609 Unspecified intestinal obstruction, Aden Medina NP unspecified as to partial versus complete obstruction 11/29/2019 K56.609 Unspecified intestinal obstruction, COLT Hayes unspecified as to partial versus complete obstruction 11/29/2019 E11.9 Type 2 diabetes mellitus without Aden Medina NP complications 11/29/2019 I10 Essential (primary) hypertension Aden Medina LINE CLEARANCE FOREMAN 11/29/2019 E78.5 Hyperlipidemia, unspecified Aden Medina LINE CLEARANCE FOREMAN 11/28/2019 K56.609 Unspecified intestinal obstruction, KISHA HobbsP unspecified as to partial versus complete obstruction 11/28/2019 I10 Essential (primary) hypertension AlyciaKISHA WeaverP 11/28/2019 E11.9 Type 2 diabetes mellitus without JAQUELINE Hobbs complications 11/28/2019 E78.5 Hyperlipidemia, unspecified Alyciaelida Bhakta MANAGER IMPLEMENTATION 11/27/2019 K56.609 Unspecified intestinal obstruction, Alycia Bhakta MANAGER IMPLEMENTATION unspecified as to partial versus complete obstruction 11/27/2019 E11.9 Type 2 diabetes mellitus without JAQUELINE Hobbs complications 11/27/2019 I10 Essential (primary) hypertension Alycia Bhakta MANAGER IMPLEMENTATION 11/27/2019 E78.5 Hyperlipidemia, unspecified Alycia Bhakta, MANAGER IMPLEMENTATION 11/26/2019 K56.609 Unspecified intestinal obstruction, Vale David, N.P. unspecified as to partial versus complete obstruction 11/26/2019 I10 Essential (primary) hypertension Vale David, N.P. 11/26/2019 E78.5 Hyperlipidemia, unspecified Vale David, N.P. 11/26/2019 E11.9 Type 2 diabetes mellitus without Vale David, N.P. complications 11/25/2019 K56.609 Unspecified intestinal obstruction, Vale David, N.P. unspecified as to partial versus complete obstruction 11/25/2019 I10 Essential (primary) hypertension Vale David, N.P. 11/25/2019 E78.5 Hyperlipidemia, unspecified Vale David, N.P. 11/25/2019 E11.9 Type 2 diabetes mellitus without Vale David, N.P. complications 11/24/2019 K56.609 Unspecified intestinal obstruction, Vale David, N.P. unspecified as to partial versus complete [...] Sanchez MD, FACS at [facility]03/23/2020 10:00 am - Sherrill Cartwright M.D. at [place]04/15/2019 - Sherrill Cartwright M.D.G60.8 Other hereditary and idiopathic neuropathiesFollow up:1 yearG43.709 Chronic migraine without aura, not intractable, without status cxpgtbyefslP34.5 Low back painNew Therapy:Physical StuzbxaE52.31 Sciatica, right sideNew Therapy:Physical Therapy Functional Status Description No Information Available Mental Status Description No Information Available Referrals Description No Information Available
--- OUTSIDE RECORDS SUMMARY | 2019-12-05 18:08 | XMS REPORT | Continuity of Care Document ---
:1955 External Reference #:[id number] Author Name Vale Hernandez N.P. (transmitted by agent of provider Angelique Lopez) Address [address] , [place] [address] Care Team Providers Name Role Phone Salvatore Greco MD - Family Medicine Care Team Information Insecticide Mixer Viraj Bryan MD - Interventional Care Team Information Insecticide Mixer [phone] Cardiology Problems Active Problems Provider Date Idiopathic [...] Location Provider Dx Diagnosis Office Visit 11/25/2019 [place] Kerwin Hernandez N.PKarely K56.609 Unsp intessyednl 2:02p Assoc,pc obst, unsp as to Hospitalists partial versus complete obst I10 Essential (primary) hypertension E78.5 Hyperlipidemia, unspecified E11.9 Type 2 diabetes mellitus without complications Office Visit 11/24/2019 2:01p [place] Kerwin Hernandez, K56.609 Unsp intestnl Asshoward,casey N.P. obst, unsp as Hospitalists to partial versus complete obst I10 Essential (primary) hypertension E78.5 Hyperlipidemia, unspecified Office Visit 11/23/2019 [facility] K56.609 Unsp intestnl 2:01p Assoc,COLT Deutsch [...] K56.609 Unspecified intestinal obstruction, Nilay Sanchez MD, [facility] unspecified as to partial versus complete obstruction 11/30/2019 E11.9 Type 2 diabetes mellitus without Aden Medina NP complications 11/30/2019 I10 Essential (primary) hypertension Aden Medina NP 11/30/2019 E83.42 Hypomagnesemia Aden Medina NP 11/30/2019 E78.5 Hyperlipidemia, unspecified Aden Medina NP 11/29/2019 K56.609 Unspecified intestinal obstruction, Aden Medina NP unspecified as to partial versus complete obstruction 11/29/2019 K56.609 Unspecified intestinal obstruction, COLT Hayes unspecified as to partial versus complete obstruction 11/29/2019 E11.9 Type 2 diabetes mellitus without Aden Meidna NP complications 11/29/2019 I10 Essential (primary) hypertension Aden Medina HYDROELECTRIC STATION OPERATOR CHIEF 11/29/2019 E78.5 Hyperlipidemia, unspecified Aden Medina HYDROELECTRIC STATION OPERATOR CHIEF 11/28/2019 K56.609 Unspecified intestinal obstruction, KISHA HobbsP unspecified as to partial versus complete obstruction 11/28/2019 I10 Essential (primary) hypertension KISHA HobbsP 11/28/2019 E11.9 Type 2 diabetes mellitus without JAQUELINE Hobbs complications 11/28/2019 E78.5 Hyperlipidemia, unspecified AlyciaKISHA WeaverP 11/27/2019 K56.609 Unspecified intestinal obstruction, JAQUELINE Hobbs unspecified as to partial versus complete obstruction 11/27/2019 E11.9 Type 2 diabetes mellitus without JAQUELINE Hobbs complications 11/27/2019 I10 Essential (primary) hypertension KISHA HobbsP 11/27/2019 E78.5 Hyperlipidemia, unspecified Alycia Bhakta, POUNCING MACHINE OPERATOR 11/26/2019 K56.609 Unspecified intestinal obstruction, Vale David, [...] Sanchez MD, FACS at [facility]03/23/2020 10:00 am - Sherrill Cartwright M.D. at [facility]04/15/2019 - Sherrill Cartwright M.D.G60.8 Other hereditary and idiopathic neuropathiesFollow up:1 yearG43.709 Chronic migraine without aura, not intractable, without status pmgofbjyilsX03.5 Low back painNew Therapy:Physical UjagsdsQ84.31 Sciatica, right sideNew Therapy:Physical Therapy Functional Status Description No Information Available Mental Status Description No Information Available Referrals Description No Information Available
--- OUTSIDE RECORDS SUMMARY | 2019-12-05 18:08 | XMS REPORT | Continuity of Care Document ---
:1955 External Reference #:[id number] Author Name Aden Medina NP (transmitted by agent of provider Angelique Lopez) Address [address] [address] Care Team Providers Name Role Phone Salvatore Greco MD - Family Medicine Care Team Information Car Coupler Viraj Bryan MD - Interventional Care Team Information Car Coupler [phone] Cardiology Problems Active Problems Provider Date Idiopathic [...] Location Provider Dx Diagnosis Office Visit 11/30/2019 [place] Kerwin Medina NP K56.609 [facility] 2:13p Assoc,pc obst, unsp as to Hospitalists partial versus complete obst E11.9 Type 2 diabetes mellitus without complications I10 Essential (primary) hypertension E83.42 Hypomagnesemia E78.5 Hyperlipidemia, unspecified Office Visit 11/29/2019 2:12p [place] Kerwin Medina, K56.609 Unsp intestnl Assoc,pc SPINDLE CARVER obst, unsp as Hospitalists to partial versus complete obst E11.9 Type 2 diabetes mellitus without complications I10 Essential (primary) hypertension E78.5 Hyperlipidemia, unspecified Office Visit 11/28/2019 2:12p [facility] Alycia K56.609 Unsp intestnl Assoc,pc JAQUELINE Bhakta obst, unsp as Hospitalists to partial versus complete obst I10 Essential (primary) hypertension E11.9 Type 2 diabetes mellitus without complications E78.5 Hyperlipidemia, unspecified Office Visit 11/27/2019 2:11p [place] Kerwin Tong K56.609 Unsp intestnl Assoc,pc JAQUELINE Bhakta obst, unsp as Hospitalists to partial versus complete obst E11.9 Type 2 diabetes mellitus without complications I10 Essential (primary) hypertension E78.5 Hyperlipidemia, unspecified Office Visit 11/26/2019 2:11p [place] Kerwin Hernandez, K56.609 Unsp intestnl Assoc,pc N.P. obst, unsp as Hospitalists to partial versus complete obst I10 Essential (primary) hypertension E78.5 Hyperlipidemia, unspecified E11.9 Type 2 diabetes mellitus without complications Office Visit 11/25/2019 2:02p [place] Kerwin Hernandez, K56.609 Uns intestnl Assoc,pc N.P. obst, unsp as Hospitalists to partial versus complete obst I10 Essential (primary) hypertension E78.5 Hyperlipidemia, unspecified E11.9 Type 2 diabetes mellitus without complications Office Visit 11/24/2019 2:01p [place] Kerwin Hernandez, K56.609 Unsp intestnl Assoc,pc N.P. obst, unsp as Hospitalists to partial versus complete obst I10 Essential (primary) hypertension E78.5 Hyperlipidemia, unspecified Office Visit 11/23/2019 [facility] Nancy K56.609 Unsp intestnl 2:01p Assoc,pc [...] 11/30/2019 I10 Essential (primary) hypertension Aden Medina, SPINDLE CARVER 11/30/2019 E83.42 Hypomagnesemia Aden Medina, SPINDLE CARVER 11/30/2019 E78.5 Hyperlipidemia, unspecified Aden Medina, SPINDLE CARVER 11/29/2019 K56.609 Unspecified intestinal obstruction, Aden Medina NP unspecified as to partial versus complete obstruction 11/29/2019 K56.609 Unspecified intestinal obstruction, COLT Hayes unspecified as to partial versus complete obstruction 11/29/2019 E11.9 Type 2 diabetes mellitus without Aden Medina NP complications 11/29/2019 I10 Essential (primary) hypertension Aden Medina, SPINDLE CARVER 11/29/2019 E78.5 Hyperlipidemia, unspecified Aden Medina, SPINDLE CARVER 11/28/2019 K56.609 Unspecified intestinal obstruction, Alyciaelida Bhakta, CLAM DREDGE BOAT CAPTAIN unspecified as to partial versus complete obstruction 11/28/2019 I10 Essential (primary) hypertension Alyciaelida Bhakta, CLAM DREDGE BOAT CAPTAIN 11/28/2019 E11.9 Type 2 diabetes mellitus without Alycia Yony, CLAM DREDGE BOAT CAPTAIN complications 11/28/2019 E78.5 Hyperlipidemia, unspecified Alycia Bhakta, CLAM DREDGE BOAT CAPTAIN 11/27/2019 K56.609 Unspecified intestinal obstruction, Alycia Yony, CLAM DREDGE BOAT CAPTAIN unspecified as to partial versus complete obstruction 11/27/2019 E11.9 Type 2 diabetes mellitus without Alycia Bhakta, CLAM DREDGE BOAT CAPTAIN complications 11/27/2019 I10 Essential (primary) hypertension Alycia Yony, CLAM DREDGE BOAT CAPTAIN 11/27/2019 E78.5 Hyperlipidemia, unspecified Alycia Bhakta, CLAM DREDGE BOAT CAPTAIN 11/26/2019 K56.609 Unspecified intestinal obstruction, Vale Hernandez, [...] Sanchez MD, FACS at [facility]03/23/2020 10:00 am - Sherrill Cartwright M.D. at [place] [facility]04/15/2019 - Sherrill Cartwright M.D.G60.8 Other hereditary and idiopathic neuropathiesFollow up:1 yearG43.709 Chronic migraine without aura, not intractable, without status dgioymnzhymM65.5 Low back painNew Therapy:Physical ZakfwelF16.31 Sciatica, right sideNew Therapy:Physical Therapy Functional Status Description No Information Available Mental Status Description No Information Available Referrals Description No Information Available
--- OUTSIDE RECORDS SUMMARY | 2019-12-05 18:08 | XMS REPORT | Continuity of Care Document ---
:1955 External Reference #:[id number] Author Name JAQUELINE Hobbs (transmitted by agent of provider Angelique Lopez) Address [address] [place] [address] Care Team Providers Name Role Phone Salvatore Greco MD - Family Medicine Care Team Information Reproductive Surgeon Viraj Bryan MD - Interventional Care Team Information Reproductive Surgeon Cardiology Problems Active Problems Provider Date Idiopathic [...] Location Provider Dx Diagnosis Office Visit 11/30/2019 [place] Kerwin Medina NP K56.609 [facility] 2:13p Assoc,pc obst, unsp as to Hospitalists partial versus complete obst E11.9 Type 2 diabetes mellitus without complications I10 Essential (primary) hypertension E83.42 Hypomagnesemia E78.5 Hyperlipidemia, unspecified Office Visit 11/29/2019 2:12p [place] Kerwin Medina K56.609 Unsp intestnl 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 obst, unsp as Hospitalists to partial versus complete obst I10 Essential (primary) hypertension E78.5 Hyperlipidemia, unspecified E11.9 Type 2 diabetes mellitus without complications Office Visit 11/25/2019 2:02p [place] Kerwin Hernandez, K56.609 Uns intestnl Assoc,pc N.P. obst, unsp as Hospitalists to partial versus complete obst I10 Essential (primary) hypertension E78.5 Hyperlipidemia, unspecified E11.9 Type 2 diabetes mellitus without complications Office Visit 11/24/2019 2:01p [place] Kerwin Hernandez, K56.609 Unsp intestnl Assoc,pc N.P. [...] 11/30/2019 I10 Essential (primary) hypertension Aden Medina, MANUFACTURED BUILDINGS SUPERVISOR 11/30/2019 E83.42 Hypomagnesemia Aden Medina, MANUFACTURED BUILDINGS SUPERVISOR 11/30/2019 E78.5 Hyperlipidemia, unspecified Aden Medina, MANUFACTURED BUILDINGS SUPERVISOR 11/29/2019 K56.609 Unspecified intestinal obstruction, Aden Medina NP unspecified as to partial versus complete obstruction 11/29/2019 K56.609 Unspecified intestinal obstruction, COLT Hayes unspecified as to partial versus complete obstruction 11/29/2019 E11.9 Type 2 diabetes mellitus without Aden Medina NP complications 11/29/2019 I10 Essential (primary) hypertension Aden Medina, MANUFACTURED BUILDINGS SUPERVISOR 11/29/2019 E78.5 Hyperlipidemia, unspecified Aden Medina, MANUFACTURED BUILDINGS SUPERVISOR 11/28/2019 K56.609 Unspecified intestinal obstruction, Alyciaelida Bhakta, ERGONOMIC SPECIALIST unspecified as to partial versus complete obstruction 11/28/2019 I10 Essential (primary) hypertension Alyciaelida Bhakta, ERGONOMIC SPECIALIST 11/28/2019 E11.9 Type 2 diabetes mellitus without Alycia Yony, ERGONOMIC SPECIALIST complications 11/28/2019 E78.5 Hyperlipidemia, unspecified Alycia Bhakta, ERGONOMIC SPECIALIST 11/27/2019 K56.609 Unspecified intestinal obstruction, Alycia Yony, ERGONOMIC SPECIALIST unspecified as to partial versus complete obstruction 11/27/2019 E11.9 Type 2 diabetes mellitus without Alycia Yony, ERGONOMIC SPECIALIST complications 11/27/2019 I10 Essential (primary) hypertension Alycia Yony, ERGONOMIC SPECIALIST 11/27/2019 E78.5 Hyperlipidemia, unspecified Alycia Bhakta, ERGONOMIC SPECIALIST 11/26/2019 K56.609 Unspecified intestinal obstruction, Vale Hernandez, [...] Sanchez MD, FACS at [facility]03/23/2020 10:00 am - Sherrill Cartwright M.D. at [place] [facility]04/15/2019 - Sherrill Cartwright M.D.G60.8 Other hereditary and idiopathic neuropathiesFollow up:1 yearG43.709 Chronic migraine without aura, not intractable, without status jjuidrkvqnyP90.5 Low back painNew Therapy:Physical DdeasaeH28.31 Sciatica, right sideNew Therapy:Physical Therapy Functional Status Description No Information Available Mental Status Description No Information Available Referrals Description No Information Available
--- OUTSIDE RECORDS SUMMARY | 2019-12-05 18:08 | XMS REPORT ---
:1955 Author Organization [facility] Care Team Providers Name Role Phone Unavailable [...] Pain Mgmt Active 2020-0 Juany pain 12-01 [place] 09:00: [id number] 00 Cardio edema Cardiovasc Active 2020-0 Juany ular 12-01 [place] 09:00: [id number] 00 Cardio knowledge/s Cardiovasc Active 2020-0 Juany kill ular 12-01 [place] deficit: pt 09:00: [id number] 00 Respiratory dyspnea Respirator Active 2020-0 Juayn present y 12-01 [place] 09:00: [id number] 00 Integument surgical Integument Active 2020-0 Juany wound 12-01 [place] present 09:00: [id number] 00 Nutrition nutritional Nutrition Active 2020-0 Juany restriction 12-01 [place] s 09:00: [id number] 00 Elimination urinary Eliminatio Active 2020-0 Juany incontinenc n 12-01 [place] e 09:00: [id number] 00 Elimination constipatio Eliminatio Active 2020-0 Juany n n 12-01 [place] 09:00: [id number] 00 Neuro confusion Neuro/Emot Active 2020-0 Juany present ion 12-01 [place] 09:00: [id number] 00 Activity ADL Activity Active 2020-0 Juany assistance 12-01 [place] required 09:00: [id number] 00 Activity self-care Activity Active 2020-0 Juany deficit 12-01 [place] 09:00: [id number] 00 Safety cannot be Safety Active 2020-0 Juany left alone 12-01 [place] 09:00: [id number] 00 Safety fall risk Safety Active 2019-0 Juany factor 12-01 [place] present 09:00: [id number] 00 Safety risk for Safety Active 2019- Juany hospitaliza 12-01 [place] tion 09:00: [id number] 00 Medication oral med Meds Active 2019-0 Juany assistance 12-01 [place] required 09:00: [id number] 00 Musculoskel requires Musculoske Active [facility] etal human letal 12-01 [place] assist to 09:00: [id number] leave home 00 Allergies, Adverse Reactions, Alerts [...] MURRAY tablet tablet fenofibrate fenofibrate 2019-0 Yes Angus Unknown Unknown nanocrystal nanocrystal 12-01 Salvatore MURRAY [...]
--- OUTSIDE RECORDS SUMMARY | 2019-12-05 18:08 | XMS REPORT | Continuity of Care Document ---
:1955 External Reference #:[id number] Author Name COLT Hayes (transmitted by agent of provider Daisy Kessler) Address [address] [place] [address] Care Team Providers Name Role Phone Salvatore Greco MD - Family Medicine Care Team Information Collection Systems Administrator [phone] Viraj Bryan MD - Interventional Care Team Information Collection Systems Administrator Cardiology Problems Active Problems Provider Date Idiopathic [...] Available Encounters Description No Information Available Assessments Date Code Description Provider 12/01/2019 K56.609 Unspecified intestinal obstruction, COLT Hayes unspecified as to partial versus complete obstruction 11/30/2019 K56.609 Unspecified intestinal obstruction, Nilay Sanchez MD, FACS unspecified as to partial versus complete obstruction 11/29/2019 K56.609 Unspecified intestinal obstruction, COLT Hayes unspecified as to partial versus complete obstruction Plan of Treatment Future Appointment(s):12/08/2019 10:00 am - Nilay Sanchez MD, FACS at [facility]03/23/2020 10:00 am - Sherrill Cartwright M.D. at [place] [facility]04/15/2019 - Sherrill Cartwright M.D.G60.8 Other hereditary and idiopathic neuropathiesFollow up:1 yearG43.709 Chronic migraine without aura, not intractable, without status hxiwnqfvjafV61.5 Low back painNew Therapy:Physical LgxfmmiU40.31 Sciatica, right sideNew Therapy:Physical Therapy Functional Status Description No Information Available Mental Status Description No Information Available Referrals Description No Information Available
--- OUTSIDE RECORDS SUMMARY | 2019-12-05 18:08 | XMS REPORT ---
:1955 Author Organization [facility] Care Team Providers Name Role Phone Unavailable [...] Pain Mgmt Active 2020-0 Juany pain 12-01 [place] 09:00: [id number] 00 Cardio edema Cardiovasc Active 2020-0 Juany ular 12-01 [place] 09:00: [id number] 00 Cardio knowledge/s Cardiovasc Active 2020-0 Juany kill ular 12-01 [place] deficit: pt 09:00: [id number] 00 Respiratory dyspnea Respirator Active 2020-0 Juany present y 12-01 [place] 09:00: [id number] 00 Integument surgical Integument Active 2020-0 Juany wound 12-01 [place] present 09:00: [id number] 00 Nutrition nutritional Nutrition Active 2020-0 Juany restriction 12-01 [place] s 09:00: [id number] 00 Elimination urinary Eliminatio Active 2020-0 Juany incontinenc n 12-01 [place] e 09:00: [id number] 00 Elimination constipatio Eliminatio Active 2020-0 Juany n n 12-01 [place] 09:00: [id number] 00 Neuro confusion Neuro/Emot Active 2020-0 Juany present ion 12-01 [place] 09:00: [id number] 00 Activity ADL Activity Active 2020-0 Juany assistance 12-01 [place] required 09:00: [id number] 00 Activity self-care Activity Active 2020-0 Juany deficit 12-01 [place] 09:00: [id number] 00 Safety cannot be Safety Active 2020-0 Juany left alone 12-01 [place] 09:00: [id number] 00 Safety fall risk Safety Active 2019-0 Juany factor 12-01 [place] present 09:00: [id number] 00 Safety risk for Safety Active 2019- Juany hospitaliza 12-01 [place] tion 09:00: [id number] 00 Medication oral med Meds Active 2019-0 Juany assistance 12-01 [place] required 09:00: [id number] 00 Musculoskel requires Musculoske Active [facility] etal human letal 12-01 [place] assist to 09:00: [id number] leave home 00 Allergies, Adverse Reactions, Alerts [...] MURRAY unit/gram unit/gram topical topical cream cream traMADol 50 traMADol 50 2020-0 Yes Angus Unknown Unknown mg tablet mg tablet 12-01 Salvatore MURRAY metaxalone metaxalone 2019-0 Yes Angus Unknown Unknown 800 mg 800 mg 12-01 Salvatore MURRAY tablet tablet glipiZIDE glipiZIDE 2019-0 Yes Angus Unknown Unknown ER 5 mg ER 5 mg 12-01 Salvatore MURRAY tablet, tablet, extended extended release 24 release 24 hr hr Benadryl 25 Benadryl 25 2019-0 Yes Angus Unknown Unknown mg capsule mg capsule 12-01 Salvatore MURRAY cyanocobala cyanocobala 2019-0 Yes Angus Unknown Unknown min (vit min (vit 12-01 Salvatore MURRAY B-12) 1,000 B12) 1,000 mcg/mL mcg/mL injection injection kit kit gabapentin gabapentin 2019-0 Yes Angus Unknown Unknown 600 mg 600 mg 12-01 Salvatore MURRAY tablet tablet cholecalcif cholecalcif 2019-0 Yes Angus Unknown Unknown dinh dinh 12-01 Salvatore MURRAY (vitamin (vitamin D3) 10,000 D3) 10,000 unit unit capsule capsule Acetaminoph Acetaminoph 0 Yes Angus Unknown Unknown en Extra en [...]
--- OUTSIDE RECORDS SUMMARY | 2019-12-05 18:08 | XMS REPORT | Continuity of Care Document ---
:1955 External Reference #:[id number] Author Name Vale Hernandez N.P. 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 obst, unsp as Hospitalists to partial versus complete obst I10 Essential (primary) hypertension E78.5 Hyperlipidemia, unspecified E11.9 Type 2 diabetes mellitus without complications Office Visit 11/25/2019 2:02p [facility] Vale Hernandez, K56.609 Uns intestnl Assoc,pc N.P. obst, unsp as Hospitalists to partial versus complete obst I10 Essential (primary) hypertension E78.5 Hyperlipidemia, unspecified E11.9 Type 2 diabetes mellitus without complications Office Visit 11/24/2019 2:01p [facility] Vale Hernandez, K56.609 Uns intestnl Assoc,pc N.P. obst, unsp as Hospitalists to partial versus complete obst I10 Essential (primary) hypertension E78.5 Hyperlipidemia, unspecified Office Visit 11/23/2019 [facility] Nancy K56.609 Uns intestnl 2:01p Assoc,COLT Deutsch obst, unsp as [...] K56.609 Unspecified intestinal obstruction, Nilay Sanchez MD, [facility] unspecified as to partial versus complete obstruction [...] 11/29/2019 I10 Essential (primary) hypertension Aden Medina NP 11/29/2019 E78.5 Hyperlipidemia, unspecified Aden Medina NP 11/28/2019 K56.609 Unspecified intestinal obstruction, Alycia Bhakta, PROP CUTTER unspecified as to partial versus complete obstruction 11/28/2019 I10 Essential (primary) hypertension Alycia Bhakta, PROP CUTTER 11/28/2019 E11.9 Type 2 diabetes mellitus without Alycia Bhakta, PROP CUTTER complications 11/28/2019 E78.5 Hyperlipidemia, unspecified Alycia Bhakta, PROP CUTTER 11/27/2019 K56.609 Unspecified intestinal obstruction, Alycia Bhakta, PROP CUTTER unspecified as to partial versus complete obstruction 11/27/2019 E11.9 Type 2 diabetes mellitus without Alycia Bhakta, PROP CUTTER complications 11/27/2019 I10 Essential (primary) hypertension Alycia Bhakta, PROP CUTTER 11/27/2019 E78.5 Hyperlipidemia, unspecified Alycia Bhakta, PROP CUTTER 11/26/2019 K56.609 Unspecified intestinal obstruction, Vale David, [...] Sanchez MD, FACS at [facility]03/23/2020 10:00 am - Sherrill Cartwright M.D. at [place] [facility]04/15/2019 - Sherrill Cartwright M.D.G60.8 Other hereditary and idiopathic neuropathiesFollow up:1 yearG43.709 Chronic migraine without aura, not intractable, without status ogblxrxexixX22.5 Low back painNew Therapy:Physical QkhkliyP68.31 Sciatica, right sideNew Therapy:Physical Therapy Functional Status Description No Information Available Mental Status Description No Information Available Referrals Description No Information Available
--- OUTSIDE RECORDS SUMMARY | 2019-12-05 18:08 | XMS REPORT | Continuity of Care Document ---
:1955 External Reference #:[id number] Author Name Salvatore Greco MD Address [address] [place] [address] Problems Active Problems Provider Date Adult health examination Onset: 03/25/2019 Idiopathic peripheral neuropathy Salvatore Greco MD Onset: 05/12/2019 Type 2 diabetes mellitus without complication Onset: 03/25/2019 Benign essential hypertension Onset: 03/25/2019 Depressive disorder Onset: 01/12/2018 Body mass index 40+ - severely obese Onset: 03/25/2019 Chronic kidney disease Onset: 08/24/2018 Iron deficiency anemia Onset: 01/12/2018 Sciatica Onset: 03/25/2019 Hysterectomy Salvatore rGeco MD Onset: 11/15/2019 Note: Maybe 1999? Small bowel obstruction Salvatore Greco MD Onset: 11/24/2019 Note: Surgery November 2019 Social History Type Date Description Comments Sex [...] Medications SIG Qnty Indications Ordering Date Provider Nystatin Apply bid in 45gm Salvatore Greco MD 12/02/2019 450763Grex/GM addition to Powder nystatin cream in other locations Glipizide 1/2 tablet daily 45tabs Salvatore Greco MD 11/17/2019 5mg Tablets Spironolactone one daily 90tabs Salvatore Greco MD 11/15/2019 25mg Tablets Nystatin apply cream 45gm Salvatore Greco MD 08/19/2019 [id number]/GM topically two Cream times daily for 14 days Atorvastatin Calcium 1 daily Oral 90tabs Unknown 03/31/2019 40mg Tablets 3ML Luer-Aksey Syringe N/A; Use 1 12units Unknown 12/30/2018 [...] CPT Code Status Date Vaccine Lot # [id number] Given 11/15/2019 Prevnar 13 [id number] 05550 Given 11/15/2019 Flu High Dose [id number] 71111 Given 12/17/2017 Shingrix - Shingles vaccine, Herpes Zoster 72772 Given 05/22/2016 Flu < 65 years 32691 Given 10/11/2013 Flu < 65 years 15733 Given 07/06/2012 Zoster Shingles Vaccine For Subcutaneous Injection 27449 Given 07/06/2012 Tdap - Boostrix/Adacel 08256 Given 07/06/2012 Flu < 65 years 00481 Given 06/07/2011 Flu < 65 years Vital [...] Date Facility Test Result H/L Range Note CBC Auto 12/05/2019 [facility] White Blood 9.4 10^3/uL Normal 3.5-10.[address] [place] [address] [phone] Red Blood Count 3.51 10^6/uL Low 3.70-4.87 Hemoglobin 10.4 g/dL Low 12.0-16.0 Hematocrit 31 % Low 35-47 Mean Corpuscular Volume 89 fL Normal 80-97 Mean Corpuscular Hemoglobin 30 pg Normal 27-31 Mean Corpuscular HGB Conc 33 g/dL Normal 31-36 Red Cell Distribution Width 15 % Normal 10-15 Platelet Count 225 10^3/uL Normal 150-450 Mean Platelet Volume 8.8 fL Normal 7.4-10.4 Abs Neutrophils 7.4 10^3/uL Normal 1.5-7.7 Abs Lymphocytes 0.9 10^3/uL Low 1.0-4.8 Abs Monocytes 0.8 10^3/uL Normal 0-0.8 Abs Eosinophils 0.2 10^3/uL Normal 0-0.6 Abs Basophils 0.0 10^3/uL Normal 0-0.2 Abs Nucleated RBC 0.0 10^3/uL Granulocyte % 79.2 % Lymphocyte % 9.6 % Monocyte % 8.5 % Eosinophil % 2.4 % Basophil % 0.3 % Nucleated Red Blood Cells % 0.0 CBC Auto 11/23/2019 [facility] White Blood 7.1 10^3/uL Normal 3.5-10.[address] [place] [address] [phone] Red Blood Count 4.30 10^6/uL Normal 3.70-4.87 Hemoglobin 12.6 g/dL Normal 12.0-16.0 Hematocrit 38 % Normal 35-47 Mean Corpuscular Volume 89 fL Normal 80-97 Mean Corpuscular Hemoglobin 29 pg Normal 27-31 Mean Corpuscular HGB Conc 33 g/dL Normal 31-36 Red Cell Distribution Width 14 % Normal 10-15 Platelet Count 169 10^3/uL Normal 150-450 Mean Platelet Volume 9.3 fL Normal 7.4-10.4 Abs Neutrophils 6.1 10^3/uL Normal 1.5-7.7 Abs Lymphocytes 0.6 10^3/uL Low 1.0-4.8 Abs Monocytes 0.3 10^3/uL Normal 0-0.8 Abs Eosinophils 0.1 10^3/uL Normal 0-0.6 Abs Basophils 0.0 10^3/uL Normal 0-0.2 Abs Nucleated RBC 0.0 10^3/uL Granulocyte % 86.4 % Lymphocyte % 8.5 % Monocyte % 4.0 % Eosinophil % 0.8 % Basophil % 0.3 % Nucleated Red Blood Cells % 0.0 Laboratory test 11/23/2019 [facility] Lactic Acid 2.0 mmol/L Normal 0.5-2.0 1 finding [address] [place] [address] [phone] Comp Metabolic 11/23/2019 [facility] Sodium 137 mmol/L Normal 135-145 Panel [address] [place] [address] [phone] Potassium 4.1 mmol/L Normal 3.5-5.0 Chloride 101 mmol/L Normal 101-111 Co2 Carbon Dioxide 27 mmol/L Normal 22-32 Anion Gap 9 mmol/L Normal 2-11 Glucose 218 mg/dL High 70-100 Blood Urea Nitrogen 23 mg/dL Normal 6-24 Creatinine 1.02 mg/dL High 0.51-0.95 BUN/Creatinine Ratio 22.5 High 8-20 Calcium 9.3 mg/dL Normal 8.6-10.3 Total Protein 7.0 g/dL Normal 6.4-8.9 Albumin 4.2 g/dL Normal 3.2-5.2 Globulin 2.8 g/dL Normal 2-4 Albumin/Globulin Ratio 1.5 Normal 1-3 Total Bilirubin 0.40 mg/dL Normal 0.2-1.0 Alkaline Phosphatase 79 U/L Normal 34-104 Alt 17 U/L Normal 7-52 Ast 23 U/L Normal 13-39 Egfr Non- 54.4 >60 Egfr 65.8 >60 2 Laboratory test 11/23/2019 [facility] Lipase 120 U/L High 11.0 -82.[address] [place] [address] [phone] C Reactive Protein 8.49 mg/L High <8.01 Urinalysis Profile 11/23/2019 [facility] Urine Color Yellow [address] [place], [place] [address] [phone] Urine Appearance Clear Urine Specific Sims 1.041 High 1.010-1.030 Urine pH 6.0 Normal 5-9 Urine Urobilinogen Negative Negative Urine Ketones Negative Negative Urine Protein Negative Negative Urine Leukocytes Negative Negative Urine Blood Negative Negative Urine Nitrite Negative Negative Urine Bilirubin Negative Negative Urine Glucose 1+(50 mg/dL) Abnormal Negative Xray 11/15/2019 [facility] Mammography <pending> [address] Screening, [place] [address] Bilateral; [phone] 2-View Each Breast Comp Metabolic 11/12/2019 [facility] Sodium 136 mmol/L Normal 135-[address] [place] [address] [phone] Potassium 3.2 mmol/L Low 3.5-5.0 Chloride 98 [...] Egfr Non- 55.0 >60 Egfr 66.6 >60 3 Lipid Profile 11/12/2019 [facility] Triglycerides 334 mg/dL 4 (Trig/Chol/HDL) [address] [place] [address] [phone] Cholesterol 190 mg/dL 5 HDL Cholesterol 26.8 mg/dL 6 LDL Cholesterol 96 mg/dL 7 Laboratory test 11/12/2019 [facility] Hemoglobin A1c 6.4 % High 4.0-5.[address] (Glyco HGB) [place] [address] [phone] Creatine Kinase(CK) 35 U/L Normal 10-223 1 [facility] Severe Sepsis and Septic Shock Management Bundle Measure requires all lactic acids initially measuring >2.0 mmol/L be repeated. 2 Because ethnic data is not always readily [...] 15-29 5 Kidney failure <15 (or dialysis) 3 Because ethnic data is not always readily [...] 15-29 5 Kidney failure <15 (or dialysis) 4 Desirable: <150 Borderline High: 150-199 High: 200-499 Very High: >500 5 Desirable: <200 Borderline High: 200-239 High: >239 6 Low: <40 Desirable: 40-60 High: >60 7 Desirable: <100 Near Optimal: 100-129 Borderline High: 130-159 High: 160-189 Very High: >189 8 Therapeutic target for the treatment of diabetes mellitus patients is <7% HBA1C, and in selective patients <6.0%. Please refer to [place] [employer] diabetic care guidelines for further information. Procedures Date Code Description Status 11/15/2019 00087 Brief Emotional/Behav Assessment W/ Scoring Doc Per Completed Standard Inst Medical Devices Description No Information Available Encounters Type Date Location Provider Dx Diagnosis Office Visit 11/15/2019 9:15a [facility] Salvatore Greco MD Z23 Encounter for immunization E11.9 Type 2 diabetes mellitus without complications I10 Essential (primary) hypertension G60.9 Hereditary and idiopathic neuropathy, unspecified M54.31 Sciatica, right side E87.6 Hypokalemia Z13.31 Encounter for screening for depression Z23 Encounter for immunization Assessments Date Code Description Provider 11/15/2019 Z23 Encounter for immunization Salvatore Greco MD 11/15/2019 E11.9 Type 2 diabetes mellitus without complication Salvatore Greco MD 11/15/2019 I10 Benign essential hypertension Salvatore Greco MD 11/15/2019 G60.9 Idiopathic peripheral neuropathy Salvatore Greco MD 11/15/2019 M54.31 Sciatica Salvatore Greco MD 11/15/2019 E87.6 Hypokalemia Salvatore Greco MD 11/15/2019 Z13.31 Encounter for screening for depression Salvatore Greco MD 11/15/2019 Z23 Encounter for immunization Salvatore Greco MD Plan of Treatment No Information Available Functional Status Description No Information Available Mental Status Description No Information Available Referrals Description No Information Available
--- OUTSIDE RECORDS SUMMARY | 2019-12-05 18:08 | XMS REPORT | Continuity of Care Document ---
:1955 External Reference #:[id number] Author Name COLT Hayes (transmitted by agent of provider Daisy Kessler) Address [address] [facility] [address] [place] [address] Care Team Providers Name Role Phone Salvatore Greco MD - Family Medicine Care Team Information Humidifier Operator [phone] Viraj Bryan MD - Interventional Care Team Information Humidifier Operator Cardiology Problems Active Problems Provider Date Idiopathic [...] Sanchez MD, FACS at [facility]03/23/2020 10:00 am - Sherrill Carwtright M.D. at [facility]04/15/2019 - Sherrill Cartwright M.D.G60.8 Other hereditary and idiopathic neuropathiesFollow up:1 yearG43.709 Chronic migraine without aura, not intractable, without status saoblmrffwlZ18.5 Low back painNew Therapy:Physical IwpmhhwD93.31 Sciatica, right sideNew Therapy:Physical Therapy Functional Status Description No Information Available Mental Status Description No Information Available Referrals Description No Information Available
--- OUTSIDE RECORDS SUMMARY | 2019-12-05 18:08 | XMS REPORT | Continuity of Care Document ---
:1955 External Reference #:[id number] Author Name Aden Medina NP (transmitted by agent of provider Angelique Lopez) Address [address] [place] [address] Care Team Providers Name Role Phone Salvatore Greco MD - Family Medicine Care Team Information Watershed Manager [phone] Viraj Bryan MD - Interventional Care Team Information Watershed Manager Cardiology Problems Active Problems Provider Date Idiopathic [...] Location Provider Dx Diagnosis Office Visit 11/30/2019 [place] Kerwin Medina NP K56.609 [facility] 2:13p Assoc,pc obst, unsp as to Hospitalists partial versus complete obst E11.9 Type 2 diabetes mellitus without complications I10 Essential (primary) hypertension E83.42 Hypomagnesemia E78.5 Hyperlipidemia, unspecified Office Visit 11/29/2019 2:12p [place] Kerwin Medina, K56.609 Unsp intestnl Assoc,pc REGISTERED NURSE MATERNITY obst, unsp as Hospitalists to partial versus complete obst E11.9 Type 2 diabetes mellitus without complications I10 Essential (primary) hypertension E78.5 Hyperlipidemia, unspecified Office Visit 11/28/2019 2:12p [facility] Alycia K56.609 Unsp intestnl Assoc,pc JAQUELINE Bhakta obst, unsp as Hospitalists to partial versus complete obst I10 Essential (primary) hypertension E11.9 Type 2 diabetes mellitus without complications E78.5 Hyperlipidemia, unspecified Office Visit 11/27/2019 2:11p [place] Kerwin Tong K56.609 Unsp intestnl Assoc,pc JAQUELINE Bhakta obst, unsp as Hospitalists to partial versus complete obst E11.9 Type 2 diabetes mellitus without complications I10 Essential (primary) hypertension E78.5 Hyperlipidemia, unspecified Office Visit 11/26/2019 2:11p [place] Kerwin Hernandez, K56.609 Unsp intestnl Assoc,pc N.P. obst, unsp as Hospitalists to partial versus complete obst I10 Essential (primary) hypertension E78.5 Hyperlipidemia, unspecified E11.9 Type 2 diabetes mellitus without complications Office Visit 11/25/2019 2:02p [place] Kerwin Hernandez, K56.609 Uns intestnl Assoc,pc N.P. obst, unsp as Hospitalists to partial versus complete obst I10 Essential (primary) hypertension E78.5 Hyperlipidemia, unspecified E11.9 Type 2 diabetes mellitus without complications Office Visit 11/24/2019 2:01p [place] Kerwin Hernandez, K56.609 Unsp intestnl Assoc,pc N.P. obst, unsp as Hospitalists to partial versus complete obst I10 Essential (primary) hypertension E78.5 Hyperlipidemia, unspecified Office Visit 11/23/2019 [facility] Nancy K56.609 Unsp intestnl 2:01p Assoc,pc COLT [...] 11/30/2019 I10 Essential (primary) hypertension Aden Medina, REGISTERED NURSE MATERNITY 11/30/2019 E83.42 Hypomagnesemia Aden Medina, REGISTERED NURSE MATERNITY 11/30/2019 E78.5 Hyperlipidemia, unspecified Aden Medina, REGISTERED NURSE MATERNITY 11/29/2019 K56.609 Unspecified intestinal obstruction, Aden Medina NP unspecified as to partial versus complete obstruction 11/29/2019 K56.609 Unspecified intestinal obstruction, COLT Hayes unspecified as to partial versus complete obstruction 11/29/2019 E11.9 Type 2 diabetes mellitus without Aden Medina NP complications 11/29/2019 I10 Essential (primary) hypertension Aden Medina, REGISTERED NURSE MATERNITY 11/29/2019 E78.5 Hyperlipidemia, unspecified Aden Medina, REGISTERED NURSE MATERNITY 11/28/2019 K56.609 Unspecified intestinal obstruction, Alyciaelida Bhakta, CEMENT SACK BREAKER unspecified as to partial versus complete obstruction 11/28/2019 I10 Essential (primary) hypertension Alyciaelida Bhakta, CEMENT SACK BREAKER 11/28/2019 E11.9 Type 2 diabetes mellitus without Alycia Yony, CEMENT SACK BREAKER complications 11/28/2019 E78.5 Hyperlipidemia, unspecified Alycia Bhakta, CEMENT SACK BREAKER 11/27/2019 K56.609 Unspecified intestinal obstruction, Alycia Yony, CEMENT SACK BREAKER unspecified as to partial versus complete obstruction 11/27/2019 E11.9 Type 2 diabetes mellitus without Alycia Bhakta, CEMENT SACK BREAKER complications 11/27/2019 I10 Essential (primary) hypertension Alycia Yony, CEMENT SACK BREAKER 11/27/2019 E78.5 Hyperlipidemia, unspecified Alycia Bhakta, CEMENT SACK BREAKER 11/26/2019 K56.609 Unspecified intestinal obstruction, Vale Hernandez, N.P. unspecified as to partial versus complete obstruction 11/26/2019 I10 Essential (primary) hypertension Vale Hernandez, N.P. 11/26/2019 E78.5 Hyperlipidemia, unspecified Vale Hernandez, N.P. 11/26/2019 E11.9 Type 2 diabetes mellitus without Vale Hernandez, N.P. complications 11/25/2019 K56.609 Unspecified intestinal obstruction, Vale Hernandez, N.P. unspecified as to partial versus complete obstruction 11/25/2019 I10 Essential (primary) hypertension Vale Dvaid, N.P. 11/25/2019 E78.5 Hyperlipidemia, unspecified Vale David, [...] Sanchez MD, FACS at [facility]03/23/2020 10:00 am - Sherrill Cartwright M.D. at [facility]04/15/2019 - Sherrill Cartwright M.D.G60.8 Other hereditary and idiopathic neuropathiesFollow up:1 yearG43.709 Chronic migraine without aura, not intractable, without status fzptmoiuqimB35.5 Low back painNew Therapy:Physical YqibojoV39.31 Sciatica, right sideNew Therapy:Physical Therapy Functional Status Description No Information Available Mental Status Description No Information Available Referrals Description No Information Available
--- OUTSIDE RECORDS SUMMARY | 2019-12-05 18:08 | XMS REPORT | Continuity of Care Document ---
:1955 External Reference #:[id number] Author Name Vale Hernandez N.P. (transmitted by agent of provider Angelique Lopez) Address [address] [place] [address] Care Team Providers Name Role Phone Salvatore Greco MD - Family Medicine Care Team Information Collection Systems Technician Viraj Bryan MD - Interventional Care Team Information Collection Systems Technician [phone] Cardiology Problems Active Problems Provider Date Idiopathic [...] Location Provider Dx Diagnosis Office Visit 11/25/2019 [place] Kerwin Hernandez N.PKarely K56.609 Unsp intessyednl 2:02p Assoc,pc obst, unsp as to Hospitalists partial versus complete obst I10 Essential (primary) hypertension E78.5 Hyperlipidemia, unspecified E11.9 Type 2 diabetes mellitus without complications Office Visit 11/24/2019 2:01p [place] Kerwin Hernandez, K56.609 Unsp intestnl Asshoward,casey N.P. obst, unsp as Hospitalists to partial versus complete obst I10 Essential (primary) hypertension E78.5 Hyperlipidemia, unspecified Office Visit 11/23/2019 [facility] K56.609 Unsp intestnl 2:01p Assoc,COLT Deutsch [...] 11/29/2019 I10 Essential (primary) hypertension Aden Medina SLEEVE WHEEL MAKER 11/29/2019 E78.5 Hyperlipidemia, unspecified Aden Medina SLEEVE WHEEL MAKER 11/28/2019 K56.609 Unspecified intestinal obstruction, KISHA HobbsP [...] HobbsP 11/27/2019 E78.5 Hyperlipidemia, unspecified Alycia Bhakta, CERTIFIED COURT INTERPRETER 11/26/2019 K56.609 Unspecified intestinal obstruction, Vale David, [...] 11/25/2019 E11.9 Type 2 diabetes mellitus without Avle David, N.P. complications 11/24/2019 K56.609 Unspecified intestinal [...] Sanchez MD, FACS at [facility]03/23/2020 10:00 am - Sherrill Cartwright M.D. at [facility]04/15/2019 - Sherrill Cartwright M.D.G60.8 Other hereditary and idiopathic neuropathiesFollow up:1 yearG43.709 Chronic migraine without aura, not intractable, without status seixjspfyteN14.5 Low back painNew Therapy:Physical VatgpgkK17.31 Sciatica, right sideNew Therapy:Physical Therapy Functional Status Description No Information Available Mental Status Description No Information Available Referrals Description No Information Available
--- OUTSIDE RECORDS SUMMARY | 2019-12-05 18:08 | XMS REPORT | Continuity of Care Document ---
:1955 External Reference #:[id number] Author Name Nilay Sanchez MD, FACS (transmitted by agent of provider Daisy Kessler) Address [address] [facility] [address] [place] [address] Care Team Providers Name Role Phone Salvatore Greco MD - Family Medicine Care Team Information Carpet Technician [phone] Viraj Bryan MD - Interventional Care Team Information Carpet Technician Cardiology Problems Active Problems Provider Date Idiopathic [...] Sanchez MD, FACS at [facility]03/23/2020 10:00 am - Sherrill Cartwright M.D. at [facility]04/15/2019 - Sherrill Cartwright M.D.G60.8 Other hereditary and idiopathic neuropathiesFollow up:1 yearG43.709 Chronic migraine without aura, not intractable, without status wblanatkqffT91.5 Low back painNew Therapy:Physical OjowwwfZ46.31 Sciatica, right sideNew Therapy:Physical Therapy Functional Status Description No Information Available Mental Status Description No Information Available Referrals Description No Information Available
--- OUTSIDE RECORDS SUMMARY | 2019-12-05 18:09 | XMS REPORT ---
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 [id number] , , unspecified unspecified as to as to partial partial versus versus complete complete obstruction obstruction Allergies, Adverse Reactions, Alerts Allergy Name Allergy Status Severity Reaction(s) Onset Inactive Treating Comments Type Date Date Clinician Adhesive Unknown Active Unknown Reaction 2020-0 Interface Tape Unknown 3-20 codeine Base Active Unknown Reaction 2020-0 Unknown Ingredient Unknown 3-20 pregabalin Base Active Unknown Reaction 2020-0 Interface Ingredient Unknown 3-20 Sulfa Unknown Active Unknown Reaction 2020-0 Interface (Sulfonamide Unknown 3-20 Antibiotics) bupropion Base Active Unknown Reaction 2020-0 Interface Ingredient Unknown 3-20 chlorthalido Base Active Unknown Reaction 2020-0 Interface ne Ingredient Unknown 3-20 duloxetine Base Active Unknown Reaction 2020-0 Interface Ingredient Unknown 3-20 sertraline Base Active Unknown Reaction 2020-0 Interface Ingredient Unknown 3-20 Bee Stings Unknown Active Unknown Reaction 2020-0 Interface Unknown 3-20 SEASONAL Unknown Active Unknown Reaction 2020-0 Interface Unknown 3-20 Medications Ordered Filled Start Stop Current Ordering Indication Dosage Frequency Signature Comments Components Medication Medication Date Date Medication? Clinician (SIG) Name Name No Known No Known No None None None Medications Medications For This For This Patient Patient Procedures This patient has no known procedures. Results This patient has no known results.
--- OUTSIDE RECORDS SUMMARY | 2019-12-05 18:09 | XMS REPORT ---
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
--- OUTSIDE RECORDS SUMMARY | 2019-12-05 18:09 | XMS REPORT | Continuity of Care Document ---
:1955 External Reference #:[id number] Author Name Salvatore Greco MD (transmitted by agent of provider Jazmin Palacios) Address [address] [place] [address] Problems Active Problems Provider Date Adult health [...] Salvatore Greco MD Onset: 11/15/2019 Note: Maybe 2000? Small bowel obstruction Salvatore Greco MD Onset: [...] Nystatin Apply Cream 15units Parris Linn, 08/19/2019 [id number] Topically Two MD Cream Times Daily For [...] CPT Code Status Date Vaccine Lot # [id number] Given 11/15/2019 Prevnar 13 [id number] Given 11/15/2019 Flu High Dose [id number] 36195 Given 12/17/2017 Shingrix - Shingles vaccine, Herpes Zoster 45482 Given 05/22/2016 Flu < 65 years 60095 Given 10/11/2013 Flu < 65 years 15234 Given 07/06/2012 Zoster Shingles Vaccine For Subcutaneous Injection 55529 Given 07/06/2012 Tdap - Boostrix/Adacel 40458 Given 07/06/2012 Flu < 65 years 20009 Given 06/07/2011 Flu < 65 years Vital [...] Test Result H/L Range Note CBC Auto 11/23/2019 [facility] White Blood 7.1 10^3/uL Normal 3.5-10.[address] [place] [address] [phone] Red Blood Count 4.30 10^6/uL Normal 3.70-4.87 [...] Blood Cells % 0.0 Laboratory test 11/23/2019 [facility] Lactic Acid 2.0 mmol/L Normal 0.5-2.0 [address] [place] [address] [phone] Comp Metabolic 11/23/2019 [facility] Sodium 137 mmol/L Normal 135-[address] [place] [address] [phone] Potassium 4.1 mmol/L Normal 3.5-5.0 Chloride 101 [...] Egfr 65.8 >60 2 Laboratory test 11/23/2019 [facility] Lipase 120 U/L High 11.0 -82.0 finding [address] [place] [address] [phone] C Reactive Protein 8.49 mg/L High <8.01 Urinalysis Profile 11/23/2019 [facility] Urine Color Yellow [address] [place] [address] [phone] Urine Appearance Clear Urine Specific [place] 1.041 High 1.010-1.030 Urine pH 6.0 Normal 5-9 Urine Urobilinogen Negative Negative Urine Ketones Negative Negative Urine Protein Negative Negative Urine Leukocytes Negative Negative Urine Blood Negative Negative Urine Nitrite Negative Negative Urine Bilirubin Negative Negative Urine Glucose 1+(50 mg/dL) Abnormal Negative Xray 11/15/2019 [facility] Mammography <pending> [address], [place] [address] Bilateral; [phone] 2-View Each Breast Comp Metabolic 11/12/2019 [facility] Sodium 136 mmol/L Normal 135-[address] [place] [address] [phone] Potassium 3.2 mmol/L Low 3.5-5.0 Chloride 98 [...] Egfr 66.6 >60 3 Lipid Profile 11/12/2019 [facility] Triglycerides 334 mg/dL 4 (Trig/Chol/HDL) [address] [place] [address] [phone] Cholesterol 190 mg/dL 5 HDL Cholesterol 26.8 mg/dL 6 LDL Cholesterol 96 mg/dL 7 Laboratory test 11/12/2019 [facility] Hemoglobin A1c 6.4 % High 4.0-5.[address] (Glyco HGB) [place] [address] [phone] Creatine Kinase(CK) 35 U/L Normal 10-[address] [facility] Severe Sepsis and Septic Shock Management Bundle [...] in selective patients <6.0%. Please refer to [place] [employer] diabetic care guidelines for further information. Procedures Date Code Description Status 11/15/2019 53850 Brief Emotional/Behav Assessment W/ Scoring Doc Per [...] immunization Assessments Date Code Description Provider 11/15/2019 E11.9 [...]
--- OUTSIDE RECORDS SUMMARY | 2019-12-05 18:09 | XMS REPORT | Continuity of Care Document ---
:1955 External Reference #:[id number] Author Name Salvatore Greco MD Address [address] [place] [address] Problems Active Problems Provider Date Adult health [...] 25mg Tablets Nystatin Apply Cream 15units Parris Amayaholsyed, 08/19/2019 [id number] Topically Two MD Cream Times Daily For [...] CPT Code Status Date Vaccine Lot # [id number] Given 11/15/2019 Prevnar 13 [id number] 45399 Given 11/15/2019 Flu High Dose [id number] 36940 Given 12/17/2017 Shingrix - Shingles vaccine, Herpes Zoster 55661 Given 05/22/2016 Flu < 65 years 05414 Given 10/11/2013 Flu < 65 years 00662 Given 07/06/2012 Zoster Shingles Vaccine For Subcutaneous Injection 93322 Given 07/06/2012 Tdap - Boostrix/Adacel 09844 Given 07/06/2012 Flu < 65 years 72773 Given 06/07/2011 Flu < 65 years Vital [...] Result H/L Range Note CBC Auto 11/23/2019 [facility] White Blood 7.1 10^3/uL Normal 3.5-10.[address] [place] [address] [phone] Red Blood Count 4.30 10^6/uL Normal 3.70-4.87 [...] Blood Cells % 0.0 Laboratory test 11/23/2019 [facility] Lactic Acid 2.0 mmol/L Normal 0.5-2.0 [address] [place] [address] [phone] Comp Metabolic 11/23/2019 [facility] Sodium 137 mmol/L Normal 135-145 Panel [address] [place] [address] [phone] Potassium 4.1 mmol/L Normal 3.5-5.0 Chloride 101 [...] Egfr 65.8 >60 2 Laboratory test 11/23/2019 [facility] Lipase 120 U/L High 11.0 -82.[address] [place], [place] [id number] [phone] C Reactive Protein 8.49 mg/L High <8.01 Urinalysis Profile 11/23/2019 [facility] Urine Color Yellow [address] [place], [place] [id number] [phone] Urine Appearance Clear Urine Specific [place] 1.041 High 1.010-1.030 Urine pH 6.0 Normal 5-9 Urine Urobilinogen Negative Negative Urine Ketones Negative Negative Urine Protein Negative Negative Urine Leukocytes Negative Negative Urine Blood Negative Negative Urine Nitrite Negative Negative Urine Bilirubin Negative Negative Urine Glucose 1+(50 mg/dL) Abnormal Negative Xray 11/15/2019 [facility] Mammography <pending> [address], [place] [address] Bilateral; [phone] 2-View Each Breast Comp Metabolic 11/12/2019 [facility] Sodium 136 mmol/L Normal 135-[address] [place], [place] [address] [phone] Potassium 3.2 mmol/L Low 3.5-5.0 Chloride 98 [...] Egfr 66.6 >60 3 Lipid Profile 11/12/2019 [facility] Triglycerides 334 mg/dL 4 (Trig/Chol/HDL) [address] [place] [address] [phone] Cholesterol 190 mg/dL 5 HDL Cholesterol 26.8 mg/dL 6 LDL Cholesterol 96 mg/dL 7 Laboratory test 11/12/2019 [facility] Hemoglobin A1c 6.4 % High 4.0-5.[address] (Glyco HGB) [place] [address] [phone] Creatine Kinase(CK) 35 U/L Normal 10-[address] [facility] Severe Sepsis and Septic Shock Management [...] in selective patients <6.0%. Please refer to [place] [employer] diabetic care guidelines for further information. Procedures Date Code Description Status 11/15/2019 53256 Brief Emotional/Behav Assessment W/ Scoring Doc Per [...] Greco MDE11.9 Type 2 diabetes mellitus without ncwcdapxsuziN63 Benign essential aqnlvwapuroyW84.9 Idiopathic peripheral hvghwvvovdU91.31 FtzoeaqsA15.6 HypokalemiaAllNew Medication:Spironolactone 25 mg - one daily Functional Status Description No Information Available Mental Status Description No Information Available Referrals Description No Information Available
--- OUTSIDE RECORDS SUMMARY | 2019-12-05 18:09 | XMS REPORT ---
:1955 Author Organization [facility] Care Team Providers Name Role Phone Unavailable Unavailable Unavailable Problems This patient has no known problems. Allergies, Adverse Reactions, Alerts Allergy Name Allergy [...]
[2019-12-05] MEDS ORDERED: HYDROmorphone INJ1* 1 MG/ML SYRINGE IV SLOW PU PRN (18:25)
[2019-12-05] MEDS ORDERED: Acetaminophen TAB* 325 MG PO PRN (18:25)
[2019-12-05] MEDS ORDERED: diPHENhydraMINE PO* 25 MG PO PRN (18:46)
[2019-12-05] MEDS ORDERED: Albuterol HFA INHALER* 8 gm MDI INH PRN (18:46)
[2019-12-05] MEDS ORDERED: Dextrose 50% Syringe 50 ML* 25 GM/50 ML SYRINGE IV PUSH PRN ×2 (18:52→19:29)
--- NOTE | 2019-12-05 18:56 | PN ---
Progress Note - Progress Note Date of Service: 12/05/19 Note: Patient seen and examined-CT reviewed POD# 12 s/p exlap for SBO here at [facility] Remote history of gastric bypass She presents with abdominal pain, nausea and distension PEX: Morbidly obese-midline incision CDI with staple irritation. Mild tenderness, distension, no peritoneal irritation CT--air distended remnant stomach and proximal small bowel IMP: SBO after exlap Admit IVF/NPO Discussed with Dr. Sanchez-will decide plan on how to decompress remnant stomach-- re-operation at this point is only in last resort.
[2019-12-05 19:17] LABS: Activated Partial Thrombo Time 31.4 seconds (26.0-38.0); INR 1.08 (0.82-1.09)
[2019-12-05 19:47] LABS: Magnesium 1.7 mg/dL (1.9-2.7)
[2019-12-05] MEDS ORDERED: Magnesium Sulfate 2 GM IV* 2 GM/50 ML BAG IVPB ONE (19:58)
[2019-12-05] MEDS ORDERED: KCL 20 MEQ/100 ML IVPREMIX* 20 MEQ/100 ML BAG IV ONE (19:58)
[2019-12-05] MEDS ORDERED: hydrALAZINE IV* 20 MG/ML VIAL IV SLOW PU PRN (19:59)
--- NOTE | 2019-12-05 19:59 | HP ---
H&P (Free Text) History and Physical: History and Physical General Surgery Diagnosis:SBO Chief Complaint: Abdominal Pain, Nausea, Distention HPI: 64 yo female, POD 12 S/P Ex lap/MARYBETH/Appendectomy d/c'd 4 days ago returns to ED with a 1 day hx of nausea,Reflux,and abdominal pain. She is also 15 yrs out from an open Tello en Y gastric Bypass. She Reports feeling well until yesterday, had been having regular bowel movements, tolerating full liquids. 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 PSYCH: AxO x 3 LABS: Laboratory Tests 12/05/19 12/05/19 16:57 16:57 WBC 9.4 Hgb 10.4 L Hct 31 L Plt Count 225 Sodium 134 L Potassium 3.4 L Chloride 97 L BUN 16 Creatinine 0.72 Glucose 87 Magnesium 1.7 L Alkaline Phosphatase 141 H C-Reactive Protein 146.77 H RESULTS:Patient Name: JAYLEEN MUNOZ Medical Record#: [id number] Ordering Physician: Andres Lynn DO Acct.#: [id number] : 1955 Age: 64 Sex: F Location: EMERGENCY DEPARTMENT Exam Date: 12/05/19 1633 ADM Status: PRE ER Order Information: CT ABD/PEL W Accession Number: [id number] CPT: 12471 Indication: Abdominal distention, recent surgery for small bowel obstruction Contrast: Administered 141.3 ml of VISAPAQUE 320 mg/ml CT of the abdomen and pelvis was performed after IV contrast administration. Coronal and sagittal reconstructed images were obtained. Lung bases demonstrate no pleural fluid, nodules or masses. Heart demonstrates no pericardial effusion. Liver is normal in size. No focal lesions or intrahepatic duct dilatation is noted. The spleen is normal in size. Moderately distended stomach is noted. The duodenum and proximal jejunum appears to be dilated. The patient has had gastric bypass. A zone of transition may be present between the proximal jejunum and distal tello limb anastomosis. The remainder of the small bowel demonstrates no evidence of abnormal dilatation. Patient is status post hernia repair. Just deep to the anterior abdominal wall just inferior to the left lobe of liver there is a fluid collection with a small amount of air and a thin wall. This may represent a postoperative collection. This measures up to 7.8 cm in length x 2.3 cm AP x 4 cm in width. In addition at the incision site in the subcutaneous tissue just superior to the umbilicus is a small fluid collection. This measures approximately 15 cm in length by 3.5 cm AP x 4.[address] of the pelvis demonstrates no retroperitoneal lymphadenopathy. Aorta and inferior vena cava are unremarkable. No hernias are identified. IMPRESSION: There is dilatation of the excluded portion of the stomach, duodenum and proximal jejunum just proximal to the anastomosis of the distal tello limb. There are postoperative collection is just inferior to the liver deep to the rectus muscle measuring 7.8 cm in length x 2.3 cm AP x 4 cm in width. In addition there is additional collection adjacent to the umbilicus in the subcutaneous tissue measuring up to just under the incision measuring up to 15 cm in length x 3.5 cm AP x 4.4 cm in width. <Electronically signed by Sherry Donald MD in OV> 12/05/19 173 Dictated By: Sherry Donald MD Dictated Date/Time: 12/05/191727 Transcribed Date/Time: 12/05/191727 Copy to: ASSESSMENT: SBO after recent Ex Lap PLAN:Admit, NPO, IV Fluids, Observation. Hospitalists to be consulted for medical management. Sliding Scale Insulin Coverage resume home meds Above was discussed with Dr Sanchez by Dr Russell. Patient also seen and examined by Dr Russell
[2019-12-05] MEDS ORDERED: Albuterol 2.5 MG/3 ML NEB.SOL* (0.083%) INH PRN (20:00)
[2019-12-05] MEDS ORDERED: Enoxaparin(*) 40 MG/0.4 ML SYR SUBCUT SCH (21:00)
[2019-12-05] MEDS ORDERED: Insulin LISPRO* 1 UNITS UNIT SUBCUT SCH (21:00)
[2019-12-05] MEDS: Pantoprazole IV* 40 MG IV SCH (21:33)
[2019-12-05] MEDS: Lactated Ringers 1000 ML Bag* 1,000 ML IV SCH (21:33)
[2019-12-05] MEDS: Nystatin CREAM* 15 GM TUBE TOPICAL SCH (21:34)
[2019-12-05] MEDS: Gabapentin CAP(*) 400 MG PO SCH (21:34)
[2019-12-05] MEDS: oxyCODONE/Acetamin 5/325 MG* TAB PO PRN (21:44)
--- NOTE | 2019-12-05 22:22 | CONS ---
CONSULTATION REPORT: DATE OF CONSULT: 12/05/19 REQUESTING PROVIDER: COLT Moses REASON FOR CONSULT: General medical management. HISTORY OF PRESENT ILLNESS: This is a 64-year-old female with a past medical history significant for diabetes type 2, hypercholesterolemia and obstructive bowel, who came to the emergency room on 12/05/19 for reports of abdominal pain. On 11/24/19, she had undergone an appendectomy with an exploratory laparotomy and lysis of adhesions and had a bowel obstruction at that time which resolved and then after being discharged home, she was feeling okay and had been ambulating around [facility] at home but then over the past several days she noted that her bowels were slowing down, she has not had any passed any flatus in the past 2 days, her last bowel movement was 12/04/19, though was small. She also noticed increasing erythema near her abdominal incisions reporting abdominal pressure, pain and bloating and new onset of acid reflux. She denies any chest pain, fever, shortness of breath, or vomiting. The Hospital Medicine consulted for general medical management of diabetes and hypertension. PAST MEDICAL HISTORY: 1. Depression. 2. Diabetes type 2, newly diagnosed in the fall. 3. Resolved hypothyroidism. 4. Hypocholesterolemia. 5. Hypertension. 6. Obstructive bowel. 7. Peptic ulcers. 8. Kidney stones. 9. Osteoarthritis. 10. Cataracts. 11. Peripheral neuropathy. 12. Headaches. 13. MRSA. 14. Barbiturates addiction in her 20s which has resolved. PAST SURGICAL HISTORY: 1. Gastric bypass in 2002. 2. Hernia repair x2. 3. Lithotripsy. 4. Hysterectomy in 2006. 5. Right total knee replacement in 2011. 6. Dental extraction in 2010. 7. Left total knee replacement in 2013. 8. Cholecystectomy. 9. Appendectomy with lysis of adhesions and exploratory lap on 11/24/19. HOME MEDICATIONS: 1. Diphenhydramine 50 mg p.o. q.p.m. p.r.n. 2. Metoclopramide 10 mg p.o. q.6 hours p.r.n., max daily dose of 4. 3. Acetaminophen 1000 mg p.o. b.i.d. p.r.n. 4. Cyanocobalamin 1000 mcg IM monthly. 5. Tramadol 50 to 100 mg p.o. q.8 hours p.r.n. 6. Gabapentin 1200 mg p.o. t.i.d. 7. Fenofibrate 145 mg p.o. daily. 8. Albuterol inhaler 2 puffs inhalation q.4 to 6 hours p.r.n. 9. Spironolactone 25 mg p.o. daily. 10. Fluticasone 2 sprays both nares daily. 11. Glipizide 2.5 mg p.o. daily. 12. Metaxalone 800 mg p.o. b.i.d. 13. Atorvastatin 40 mg p.o. daily. 14. Nystatin cream 1 application topically t.i.d. 15. Hydrocodone/acetaminophen 5/325 mg 1 tab p.o. q.4 hours p.r.n., max daily dose of 6. ALLERGIES: ADHESIVE TAPE, BEE VENOM PROTEIN, CODEINE, LYRICA, SULFA, BUPROPION , CHLORTHALIDONE, DULOXETINE, SERTRALINE, and SEASONAL ALLERGIES. FAMILY HISTORY: Grandfather on one side had an IL. Grandfather on the other side had a brain tumor. Her father had coronary artery disease, atherosclerosis , and polycythemia vera. Her mother has Parkinson's and her siblings have peptic ulcers. SOCIAL HISTORY: She is a former smoker, she quit in 1981, had been a 2 packs a day for 10 years. She drinks 1 alcoholic drink a month. 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 REVIEW OF SYSTEMS: A 12-point system review was performed, which was positive for abdominal pain, pressure, and bloating. Negative for flatus. Erythema near abdominal incisions. Indigestion. Negative for fever, chills, chest pain , palpitations, shortness of breath, vomiting. PHYSICAL EXAMINATION: Vital Signs: 97.6 Fahrenheit, 119 pulse, 18 respirations , 98% oxygen on room air, 170/97 blood pressure. General: This is a well- developed, obese, woman seen resting in the bed, in no acute distress. HEENT: Conjunctivae pink and moist. PERRLA. EOMs intact. Oropharynx clear. Mucous membranes are moist. Neck is supple. Cardiac: S1, S2 present. Heart rate irregular. No murmurs, gallops, or rubs appreciated. Respiratory: Lung sounds clear throughout bilaterally on room air. No accessory muscle use noted. Abdomen: Large, soft, distended, tender around epigastric with hypoactive bowel sounds x4. Musculoskeletal: No clubbing or cyanosis of the digits. Neurologic: Sensation intact to light touch. No focal deficits appreciated. Skin: The patient has 1 midline and 2 lap sites to abdomen that are open to air, daljit intact, well approximated, all with erythema without additional heat. Erythema is blanching. No drainage noted. There is a bulge to the proximal end of midline incision. Psych: She is alert and oriented x4. Thought content organized. DIAGNOSTIC STUDIES/LABORATORY DATA: CT of the abdomen and pelvis with contrast showed there is a dilatation of the excluded portion of the stomach, duodenum, and proximal jejunum, just proximal to the anastomosis of the distal Mariama limb. Chest x-ray showed no active cardiopulmonary disease. Pertinent lab data: WBCs 9.4, RBCs 3.52, hemoglobin 10.4, hematocrit 31. Sodium 134, potassium 3.4, chloride 97, BUN/creatinine ratio 22.2. Magnesium 1.7, alkaline phosphatase 141. C-reactive protein 146.77. Lactic acid was 1.0. ASSESSMENT AND PLAN: My impression, this is a 64-year-old female with a past medical history significant for depression, diabetes type 2, hypertension, who is being admitted on 12/05/19 by Surgery for bowel obstruction and hospitalists were consulted to medically manage her comorbidities. 1. Bowel obstruction. Management is as per Surgery. The patient does not require an NG tube at this time, though is n.p.o. except for medications and will be kept hydrated with lactated Ringers at 125 mL/h. She can have both Reglan and Zofran for nausea, though with the emphasis on using the Reglan first to assist with intestinal motility. She was also started on an IV Protonix due to n.p.o. status as well and experiencing acid reflux. 2. Electrolyte imbalance. Both magnesium and potassium were low likely secondary to gastrointestinal losses. The patient stated that while she was in the hospital last time they were also repleted. We have ordered magnesium 2 g as well as 20 mEq of potassium IV x1 and BMP will be checked in the morning. 3. Diabetes type 2. Last hemoglobin A1c was 6.4 on 11/12/19. She states that she no longer checks her blood sugars at home as instructed per her PCP, however , while she is in the hospital and n.p.o., she will have blood sugars every 6 hours with sliding lispro insulin and we will hold her glipizide until she is able to take in better p.o. 4. Hypertension. Her blood pressures in the emergency room have been in the 170s systolically. She may continue to take her spironolactone which she did have this morning and a p.r.n. order for hydralazine has been placed for systolic blood pressure greater than 180, however, with the blood pressures in the 170s, she is asymptomatic. 5. Hyperlipidemia. Her atorvastatin is on hold until her obstruction is resolved. 6. Peripheral neuropathy. She may continue her gabapentin. 7. Seasonal allergies. She may continue her fluticasone nasal spray. 8. Chronic pain. She will have Toradol and IV morphine available to her as needed and we can restart her usual tramadol and metaxalone once her obstruction begins to resolve. 9. DVT prophylaxis: Initiate Lovenox. 10. Code status: Full code. 11. Disposition: Admit to short stay surgical. 12. Condition: Guarded. TIME SPENT: Time spent on the patient is about 40 minutes with 30 of that spent [id number]. Thank you for allowing us to participate in the care of this patient. We will follow during this admission. [id number]/[facility] #: [id number] SAGE
[2019-12-06] MEDS: Insulin LISPRO* 1 UNITS UNIT SUBCUT SCH ×5 (00:39→23:57)
[2019-12-06] MEDS: Ketorolac INJ* 30 MG/ML 1 ML VIAL IV PUSH PRN ×3 (01:53→15:45)
[2019-12-06 05:25] LABS: ABS Eosinophils 0.2 10^3/ul (0-0.6); ABS Lymphocytes 0.7 10^3/ul (1.0-4.8); ABS Monocytes 0.6 10^3/ul (0-0.8); ABS Neutrophils 5.1 10^3/ul (1.5-7.7); Eosinophil % 2.5 %; Hematocrit 27 % (35-47); Lymphocyte % 10.4 %; Mean Corpuscular HGB Conc 34 g/dL (31-36); Mean Corpuscular Hemoglobin 30 pg (27-31); Mean Corpuscular Volume 89 fL (80-97); Platelet Count 206 10^3/uL (150-450); Red Blood Count 2.97 10^6 /uL (3.70-4.87); Red Cell Distribution Width 15 % (10-15); White Blood Count 6.5 10^3/uL (3.5-10.8)
[2019-12-06 05:47] LABS: Albumin 2.7 g/dL (3.2-5.2); C Reactive Protein 134.68 mg/L (<8.01); Calcium 8.3 mg/dL (8.6-10.3); EGFR African American 114.8 (>60); EGFR Non-African American 94.8 (>60); Globulin 2.6 g/dL (2-4); Potassium 3.8 mmol/L (3.5-5.0); Total Bilirubin 0.4 mg/dL (0.2-1.0); Total Protein 5.3 g/dL (6.4-8.9)
[2019-12-06] MEDS: Lactated Ringers 1000 ML Bag* 1,000 ML IV SCH ×2 (05:50→23:44)
[2019-12-06] MEDS: Nystatin CREAM* 15 GM TUBE TOPICAL SCH ×3 (09:28→21:11)
[2019-12-06] MEDS: Fluticasone NASAL SPRAY 50MCG* 16 gm SPRAY BTL BOTH NARES SCH (09:32)
[2019-12-06] MEDS: Pantoprazole IV* 40 MG IV SCH (09:33)
[2019-12-06] MEDS ORDERED: ceFAZolin 1 GM* X ONE DOSE (AddVan) IVPB ×2 (09:40)
[2019-12-06] MEDS ORDERED: Vancomycin(*) 1,000 MG in NS 0.9% 250 ML* 250 ML IV ONE (10:00)
[2019-12-06] MEDS ORDERED: fentaNYL* 50 MCG/ML 2 ML VIAL (100 MCG VIAL) ONE ×2 (10:01→12:33)
[2019-12-06] MEDS ORDERED: Midazolam* 1 MG/ML 2 ML VIAL (2 MG) ONE (10:01)
[2019-12-06] MEDS ORDERED: Bupivacaine 0.5% SDV PF* 30ML VIAL ONE ×2 (10:01→12:21)
--- NOTE | 2019-12-06 10:02 | PN ---
Subjective Date of Service: 12/06/19 Interval History: Obese elderly female returned following recent D/C for SBO. Pt reports that she is developing some pain in her abdomen around her surgical site. Pt denies any nausea presently. Reports continues to pass flatus however it has decreased today. Denies CP, SOB, Dizziness. Family History: Unchanged from Admission Social History: Unchanged from Admission Past Medical History: Unchanged from Admission Objective Active Medications: Acetaminophen (Tylenol Tab*) 650 mg PO Q4H PRN PRN Reason: PAIN - MILD Albuterol (Ventolin 2.5 Mg/3 Ml Neb.Nara*) 2.5 mg INH Q4H PRN PRN Reason: SOB/WHEEZING Dextrose (D50w Syringe 50 Ml*) 12.5 gm IV PUSH .FOR FS < 60 - SS PRN PRN Reason: FS < 60 Diphenhydramine HCl (Benadryl Po*) 50 mg PO BEDTIME PRN PRN Reason: SLEEP Fluticasone Propionate (Flonase Nasal [place] 50mcg*) 2 spray BOTH NARES DAILY [facility] Last Admin: 12/06/19 09:32 Dose: 2 spray Gabapentin (Neurontin Cap(*)) 1,200 mg PO TID [facility] Last Admin: 12/05/19 21:34 Dose: 1,200 mg Hydralazine HCl (Apresoline Iv*) 5 mg IV SLOW PU Q6H PRN PRN Reason: SYSTOLIC BP GREATER THAN: Hydromorphone HCl (Dilaudid Inj*) 0.5 mg IV SLOW PU Q1H PRN PRN Reason: PAIN - SEVERE Lactated Ringer's (Lactated Ringers 1000 Ml Bag*) 1,000 mls @ 125 mls/hr IV PER RATE [facility] Last Admin: 12/06/19 05:50 Dose: 125 mls/hr Vancomycin HCl 1,000 mg/ (Sodium Chloride) 250 mls @ 166.667 mls/hr IV ONCE ONE Stop: 12/06/19 11:29 Insulin Human Lispro (Humalog*) 0 units SUBCUT Q6HR [facility]; Protocol Last Admin: 12/06/19 07:11 Dose: Not Given Ketorolac Tromethamine (Toradol Inj*) 30 mg IV PUSH Q6H PRN PRN Reason: PAIN - MODERATE Last Admin: 12/06/19 09:29 Dose: 30 mg Metoclopramide HCl (Reglan Iv*) 10 mg IV Q6H PRN PRN Reason: NAUSEA/VOMITING Nystatin (Nystatin Cream*) 1 applic TOPICAL TID [facility] Last Admin: 12/06/19 09:28 Dose: Not Given Ondansetron HCl (Zofran Inj*) 4 mg IV Q4H PRN PRN Reason: NAUSEA/VOMITING Oxycodone/Acetaminophen (Percocet 5/325 Tab*) 1 tab PO Q4H PRN PRN Reason: PAIN - MODERATE Last Admin: 12/05/19 21:44 Dose: 1 tab Pantoprazole Sodium (Protonix Iv*) 40 mg IV DAILY [facility] Last Admin: 12/06/19 09:33 Dose: 40 mg Spironolactone (Aldactone Tab*) 25 mg PO DAILY [facility] Vital Signs - 8 hr 12/06/19 12/06/19 12/06/19 01:57 05:24 05:51 Temperature 98.4 F Pulse Rate 86 Respiratory 18 17 18 Rate Blood Pressure 113/62 (mmHg) O2 Sat by Pulse 96 Oximetry 12/06/19 12/06/19 07:35 07:39 Temperature 97.9 F Pulse Rate 88 Respiratory 18 18 Rate Blood Pressure 96/40 (mmHg) O2 Sat by Pulse 100 Oximetry Oxygen Devices in Use Now: None Appearance: Elderly obese woman ambulating in hallway with steady gait, unaided while pushing IV pole. Eyes: No Scleral Icterus, PERRLA Ears/Nose/Mouth/Throat: NL Teeth, Lips, Gums, Clear Oropharnyx, Mucous Membranes Moist Neck: NL Appearance and Movements; NL JVP, Trachea Midline, No Thyroid Enlargement, Masses Respiratory: Symmetrical Chest Expansion and Respiratory Effort, Clear to Auscultation Cardiovascular: NL Sounds; No Murmurs; No JVD, RRR, - - +2 nonpitting edema bilateral lower extrems. Lymphatic: No Cervical Adenopathy Extremities: - - +2 nonpitting pedal edema bilaterally Skin: No Rash or Ulcers, No Nodules or Sclerosis Neurological: Alert and Oriented x 3, NL Sensation, NL Gait, NL Muscle Strength and Tone Result Diagrams: 12/06/19 05:18 12/06/19 05:18 Assess/Plan/Problems-Billing Assessment: 64 yo female patient with hx of POD 12 S/P appendectomy and SBO repair also DM II, hyperlipidemia arrives to the hospital with C/O 1 day increasing abdominal pain, nausea, reflux, 2 days constipation, and absent flatus. - Patient Problems (1) SBO (small bowel obstruction) Current Visit: No Comment: -NPO -Managed by Surgery -No NG tube presently -Currently denies nausea and vomiting, reports passage of flatus today, last BM 12/02 -IV/PO pain meds (2) Diabetes Current Visit: Yes Comment: -Sliding scale -NPO presently -Gabapentin for neuropathy (3) Hyperlipidemia Current Visit: Yes Comment: - Statin on hold until resolution of obstruction (4) Hypertension Current Visit: Yes Comment: -Well controlled on current regimen -Spironolactone with hyrdalazine PRN (5) Nausea Current Visit: Yes SNOMED Code(s): 441668049 Comment: -Denies nausea presently -Ondansetron -Reglan (6) GERD (gastroesophageal reflux disease) Current Visit: Yes Comment: -Pantoprazole 40mg IV (7) DVT prophylaxis Current Visit: No Comment: -Ambulatory -SCD's -Managed by Surgery (8) Full code status Current Visit: Yes Comment: Status and Disposition: Guarded
--- NOTE | 2019-12-06 12:10 | PN ---
Progress Note - Progress Note Date of Service: 12/06/19 Note: S: Some pain/discomfort, mostly upper abd, not severe. No N/V. Passing flatus. O: Vital Signs - 8 hr 12/06/19 12/06/19 12/06/19 05:24 05:51 07:35 Temperature 98.4 F 97.9 F Pulse Rate 86 88 Respiratory 17 18 18 Rate Blood Pressure 113/62 96/40 (mmHg) O2 Sat by Pulse 96 100 Oximetry 12/06/19 07:39 Temperature Pulse Rate Respiratory 18 Rate Blood Pressure (mmHg) O2 Sat by Pulse Oximetry Intake and Output Last 24 Hours 12/04/19 12/05/19 12/06/19 12/07/19 06:59 06:59 06:59 06:59 Intake Total 2026 Output Total 300 Balance 1727 Weight 266 lb Intake: IV Fluids 1852 LR 926 IVPB 175 Magnesium Sulfate 55 Pottassium CL 120 Output: Urine 300 Other: Estimated Void Medium # Voids 1 Gen: sitting up in chair; NAD Heart: reg Lungs: clear Abd: midline incision w/ swelling upper portion, w/ mild to moderate tenderness. Remainder of abd relatively soft and nontender. Labs: 12/05/19 12/06/19 12/06/19 16:57 05:18 05:18 WBC 6.5 Hgb 9.0 L C-Reactive Protein 146.77 H 134.68 H A: 13 d s/p exp lap w/ MARYBETH for SBO, readmitted w/ moderate gastric remnant distension P: for IR placement of gastrostomy tube today; plan for repeat contrast study on . Discussed w/ Dr. Sanchez.
[2019-12-06] MEDS ORDERED: Bupivacaine 0.25% SDV PF* 10 ML VIAL INJ ONE (12:20)
--- NOTE | 2019-12-06 13:47 | BRIEFOPN ---
Brief Operative/Procedure Note - Operation Details Pre-Op Diagnosis: Small bowel obstruction in patient with history of gastric bypass surgery. Post-Op Diagnosis: Same, obstructed gastric remnant. Procedures: Ultrasound and fluoroscopy guided percutaneous 18 Kinyarwanda gastrostomy tube into the obstructed gastric remnant. Surgeon(s)/Proceduralists: Jareth Robles M.D. Anesthesia: Conscious sedation (IV fentanyl & versed) and bupivicaine 0.5% injected locally. Estimated Blood Loss: Minimal Findings: <300 mL bilious fluid immediately drained from gastric remnant. Specimen(s)/Culture(s) Description: Nothing sent. Complications: None.
[2019-12-06] MEDS: Spironolactone TAB* 25 MG PO SCH (14:45)
[2019-12-06] MEDS: Gabapentin CAP(*) 400 MG PO SCH ×3 (14:45→21:10)
[2019-12-06] MEDS: Ondansetron INJ* 2 MG/ML VIAL IV PRN ×2 (17:56→23:42)
[2019-12-06] MEDS: HYDROmorphone INJ* 0.5 MG/0.5 ML SYRINGE IV SLOW PU PRN ×3 (17:59→23:43)
[2019-12-06] MEDS: oxyCODONE/Acetamin 5/325 MG* TAB PO PRN (21:10)
[2019-12-06] MEDS: Metoclopramide IV* 5 MG/ML 2 ML VIAL IV PRN (22:23)
[2019-12-07] MEDS: HYDROmorphone INJ* 0.5 MG/0.5 ML SYRINGE IV SLOW PU PRN ×4 (02:23→07:05)
[2019-12-07] MEDS: Insulin LISPRO* 1 UNITS UNIT SUBCUT SCH (05:48)
[2019-12-07] MEDS: Lactated Ringers 1000 ML Bag* 1,000 ML IV SCH ×3 (07:53→23:47)
[2019-12-07] MEDS: Pantoprazole IV* 40 MG IV SCH (08:41)
[2019-12-07] MEDS: Nystatin CREAM* 15 GM TUBE TOPICAL SCH ×3 (08:41→21:47)
[2019-12-07] MEDS: Fluticasone NASAL SPRAY 50MCG* 16 gm SPRAY BTL BOTH NARES SCH (08:41)
[2019-12-07] MEDS: oxyCODONE/Acetamin 5/325 MG* TAB PO PRN ×3 (08:42→21:51)
[2019-12-07] MEDS: Gabapentin CAP(*) 400 MG PO SCH ×3 (08:42→21:51)
[2019-12-07] MEDS: Spironolactone TAB* 25 MG PO SCH (08:43)
--- NOTE | 2019-12-07 10:40 | PN ---
Progress Note - Progress Note Date of Service: 12/07/19 SOAP: Subjective: NAD comfortable in chair C/O Pain at G Tube site + BM [] Objective: Vital Signs Temp 97.3 F 12/07/19 08:00 Pulse 81 12/07/19 08:00 Resp 16 12/07/19 08:42 BP 133/63 12/07/19 08:00 Pulse Ox 98 12/07/19 08:00 Intake & Output 12/06/19 12/07/19 12/07/19 18:59 06:59 18:59 Intake Total 0 1152 990 Output Total 700 830 Balance -700 322 990 Intake: IV Fluids 952 990 LR 952 990 Oral 0 200 Output: Pigtail Drain 700 230 Urine 600 Other: Estimated Void Medium # Voids 2 PEX GEN: NAD Chest: CTAB CVS: RRR ABD: dressing at G tube site intact, minimal blood stain at superior aspect tender to palp at drain site, Half daljit remain in midline incision incisions all intact, minimal errythema EXT: Calves soft non tender Assessment: HD 3 Post procedure day 1 S/P Ultrasound and fluoroscopy guided percutaneous 18 Bengali gastrostomy tube into the obstructed gastric remnant. by IR. Doing well, C/O pain at G Tube site. Plan: Remaining daljit removed from midline incision. Continue ice chips, meds with sips for today. UGI tomorrow via oral and G Tube. Encouraged ambulation. Above D/W Dr Sanchez
[2019-12-07 10:50] LABS: ABS Eosinophils 0.1 10^3/ul (0-0.6); ABS Lymphocytes 0.5 10^3/ul (1.0-4.8); ABS Monocytes 0.4 10^3/ul (0-0.8); ABS Neutrophils 3.7 10^3/ul (1.5-7.7); Eosinophil % 2.3 %; Hematocrit 27 % (35-47); Lymphocyte % 9.9 %; Mean Corpuscular HGB Conc 33 g/dL (31-36); Mean Corpuscular Hemoglobin 30 pg (27-31); Mean Corpuscular Volume 89 fL (80-97); Mean Platelet Volume 8.1 fL (7.4-10.4); Nucleated Red Blood Cells % 0.1; Platelet Count 223 10^3/uL (150-450); Red Blood Count 3.04 10^6 /uL (3.70-4.87); Red Cell Distribution Width 15 % (10-15); White Blood Count 4.7 10^3/uL (3.5-10.8)
[2019-12-07 11:12] LABS: BUN/Creatinine Ratio 18.3 (8-20); Calcium 8.6 mg/dL (8.6-10.3); EGFR African American 121.4 (>60); EGFR Non-African American 100.3 (>60); Potassium 3.7 mmol/L (3.5-5.0)
[2019-12-07] MEDS: Ketorolac INJ* 30 MG/ML 1 ML VIAL IV PUSH PRN ×2 (11:55→19:55)
--- NOTE | 2019-12-07 13:47 | PN ---
Subjective Date of Service: 12/07/19 Interval History: Pt reports that she is feeling much better today. pt describes stabbing pain at insertion site of gastrostomy tube when she ambulates. Pt reports feeling much less pressure in abdomen and her incision site feel much better without the daljit. Pt denies any chest pain, dizziness, SOB. Family History: Unchanged from Admission Social History: Unchanged from Admission Past Medical History: Unchanged from Admission Objective Active Medications: Acetaminophen (Tylenol Tab*) 650 mg PO Q4H PRN PRN Reason: PAIN - MILD Albuterol (Ventolin 2.5 Mg/3 Ml Neb.Nara*) 2.5 mg INH Q4H PRN PRN Reason: SOB/WHEEZING Diphenhydramine HCl (Benadryl Po*) 50 mg PO BEDTIME PRN PRN Reason: SLEEP Fluticasone Propionate (Flonase Nasal [place] 50mcg*) 2 spray BOTH NARES DAILY [facility] Last Admin: 12/07/19 08:41 Dose: 2 spray Gabapentin (Neurontin Cap(*)) 1,200 mg PO TID [facility] Last Admin: 12/07/19 08:42 Dose: 1,200 mg Hydralazine HCl (Apresoline Iv*) 5 mg IV SLOW PU Q6H PRN PRN Reason: SYSTOLIC BP GREATER THAN: Hydromorphone HCl (Dilaudid Inj*) 0.5 mg IV SLOW PU Q1H PRN PRN Reason: PAIN - SEVERE Last Admin: 12/07/19 07:05 Dose: 0.5 mg Lactated Ringer's (Lactated Ringers 1000 Ml Bag*) 1,000 mls @ 125 mls/hr IV PER RATE [facility] Last Admin: 12/07/19 07:53 Dose: 125 mls/hr Ketorolac Tromethamine (Toradol Inj*) 30 mg IV PUSH Q6H PRN PRN Reason: PAIN - MODERATE Last Admin: 12/07/19 11:55 Dose: 30 mg Metoclopramide HCl (Reglan Iv*) 10 mg IV Q6H PRN PRN Reason: NAUSEA/VOMITING Last Admin: 12/06/19 22:23 Dose: 10 mg Nystatin (Nystatin Cream*) 1 applic TOPICAL TID [facility] Last Admin: 12/07/19 08:41 Dose: 1 applic Ondansetron HCl (Zofran Inj*) 4 mg IV Q4H PRN PRN Reason: NAUSEA/VOMITING Last Admin: 12/06/19 23:42 Dose: 4 mg Oxycodone/Acetaminophen (Percocet 5/325 Tab*) 1 tab PO Q4H PRN PRN Reason: PAIN - MODERATE Last Admin: 12/07/19 08:42 Dose: 1 tab Oxycodone/Acetaminophen (Percocet 5/325 Tab*) 2 tab PO Q4H PRN PRN Reason: PAIN - SEVERE Last Admin: 12/07/19 13:17 Dose: 2 tab Pantoprazole Sodium (Protonix Iv*) 40 mg IV DAILY [facility] Last Admin: 12/07/19 08:41 Dose: 40 mg Spironolactone (Aldactone Tab*) 25 mg PO DAILY [facility] Last Admin: 12/07/19 08:43 Dose: 25 mg Vital Signs - 8 hr 12/07/19 12/07/19 12/07/19 05:41 07:05 07:07 Temperature Pulse Rate Respiratory 18 18 18 Rate Blood Pressure (mmHg) O2 Sat by Pulse Oximetry 12/07/19 12/07/19 12/07/19 08:00 08:05 08:42 Temperature 97.3 F Pulse Rate 81 Respiratory 16 16 16 Rate Blood Pressure 133/63 (mmHg) O2 Sat by Pulse 98 Oximetry 12/07/19 12/07/19 12/07/19 08:45 11:00 12:00 Temperature 97.5 F Pulse Rate 81 Respiratory 16 16 17 Rate Blood Pressure 127/60 (mmHg) O2 Sat by Pulse 98 Oximetry 12/07/19 13:17 Temperature Pulse Rate Respiratory 16 Rate Blood Pressure (mmHg) O2 Sat by Pulse Oximetry Oxygen Devices in Use Now: None Appearance: Obese elderly woman sitting up in chair texting with cell phone. NAD Eyes: No Scleral Icterus, PERRLA Ears/Nose/Mouth/Throat: NL Teeth, Lips, Gums, Clear Oropharnyx, Mucous Membranes Moist Neck: NL Appearance and Movements; NL JVP Respiratory: Symmetrical Chest Expansion and Respiratory Effort, Clear to Auscultation Cardiovascular: NL Sounds; No Murmurs; No JVD, RRR, - - +2 non-pitting edema bilateral LE Abdominal: NL Sounds; No Tenderness; No Distention, No Hepatosplenomegaly, - - + BS x 4quads, hypoactive in RUQ normoactive in remaining quads. Daljit removed by PA today steristrips intact wound is without dehiscence, wound edges well approximated with slight erythema. Lymphatic: No Cervical Adenopathy Extremities: No Clubbing, Cyanosis Skin: No Rash or Ulcers, No Nodules or Sclerosis Neurological: Alert and Oriented x 3, NL Sensation, NL Gait, NL Muscle Strength and Tone Lines/Tubes/Other Access: Clean, Dry and Intact Other Access - Gastrostomy tube draining dark green liquid Nutrition: - - Clears and sips with PO meds Result Diagrams: 12/07/19 10:40 12/07/19 10:40 Microbiology and Other Data: Microbiology 12/05/19 16:57 Aerobic Blood Culture - Preliminary Blood Venous No Growth Day 1 Anaerobic Blood Culture - Preliminary No Growth Day 1 Assess/Plan/Problems-Billing Assessment: 64 yo female patient with hx of POD 12 S/P appendectomy and SBO repair also DM II, hyperlipidemia arrives to the hospital with C/O 1 day increasing abdominal pain, nausea, reflux, 2 days constipation, and absent flatus. - Patient Problems (1) SBO (small bowel obstruction) Current Visit: No Comment: -NPO -Gastrostomy tube placed yesterday, draining dark green bile. -Will have UGI 12/07 -Managed by Surgery -Daljit removed from abdomen incision from previous SBO repair approx. 2 wks ago -Currently denies nausea and vomiting, reports passage of flatus today and one BM -IV/PO pain meds (2) Diabetes Current Visit: Yes Comment: -Well controlled on current regimen -Sliding scale -NPO presently -Gabapentin for neuropathy (3) Hyperlipidemia Current Visit: Yes Comment: - Statin on hold until resolution of obstruction (4) Hypertension Current Visit: Yes Comment: -Remains normotensive -Well controlled on current regimen -Spironolactone with hyrdalazine PRN (5) Nausea Current Visit: Yes SNOMED Code(s): 797973248 Comment: -Continues to deny nausea -Ondansetron PRN -Reglan PRN (6) GERD (gastroesophageal reflux disease) Current Visit: Yes Comment: -Pantoprazole 40mg IV (7) DVT prophylaxis Current Visit: No Comment: -Ambulatory -SCD's -Managed by Surgery (8) Full code status Current Visit: Yes Comment: Status and Disposition: Stable inpatient
[2019-12-08] MEDS: Ketorolac INJ* 30 MG/ML 1 ML VIAL IV PUSH PRN ×2 (03:37→08:24)
[2019-12-08] MEDS: Lactated Ringers 1000 ML Bag* 1,000 ML IV SCH ×2 (08:17→17:18)
[2019-12-08] MEDS: Pantoprazole IV* 40 MG IV SCH (08:19)
[2019-12-08] MEDS: Spironolactone TAB* 25 MG PO SCH (08:21)
[2019-12-08] MEDS: Fluticasone NASAL SPRAY 50MCG* 16 gm SPRAY BTL BOTH NARES SCH (08:21)
[2019-12-08] MEDS: Gabapentin CAP(*) 400 MG PO SCH ×4 (08:21→20:56)
[2019-12-08] MEDS: Nystatin CREAM* 15 GM TUBE TOPICAL SCH ×3 (08:22→20:25)
--- NOTE | 2019-12-08 08:38 | PN ---
Progress Note - Progress Note Date of Service: 12/08/19 Note: S: Feels better overall. Still some pain at G-tube site. No N/V. Passing flatus and some loose stool. Voiding well. Ambulating. O: Vital Signs - 8 hr 12/08/19 12/08/19 03:45 08:21 Temperature 97.9 F Pulse Rate 75 Respiratory 18 18 Rate Blood Pressure 156/79 (mmHg) O2 Sat by Pulse 99 Oximetry Intake and Output Last 24 Hours 12/06/19 12/07/19 12/08/19 12/09/19 06:59 06:59 06:59 06:59 Intake Total 2026 1152 2073 1007 Output Total 300 1530 1750 Balance 1727 -054 135 7176 Weight 266 lb Intake: IV Fluids 0259 324 9818 LR 975 425 4762 IVPB 175 1007 LR 1007 Magnesium Sulfate 55 Pottassium CL 120 Oral 200 100 Output: Pigtail Drain 930 50 Urine 776 518 0154 Other: Estimated Void Medium Medium # Bowel Movements 3 Estimated Stool Amount Large # Voids 1 2 Gen: appears comfortable, sitting up chair Heart: reg Lungs: clear ant Abd: +BS; incisions ok; mild blush at inferior aspect of midline; no sig tenderness. Palp fullness superior portion of incision, but no tenderness. G- tube w/ small amt of bilious drainage. Extr: no sig edema No labs today. A: s/p ex lap, MARYBETH for SBO and now s/p perc G-tube placement for dilated remnant stomach at biliopancreatic limb, improved clinically P: UGI and G-tube study today; if ok, possibly feed and consider d/c soon.
[2019-12-08] MEDS: oxyCODONE/Acetamin 5/325 MG* TAB PO PRN ×3 (11:28→21:54)
[2019-12-08] MEDS: Metoclopramide IV* 5 MG/ML 2 ML VIAL IV PRN (11:33)
--- NOTE | 2019-12-08 13:29 | PN ---
Subjective Date of Service: 12/08/19 Interval History: Pt is alert and oriented x 3. Pt reports that she had a large volume of urine out last night. Pt also reports that after urinating she felt that there was less pressure in her abdomen. However, she does believe that the fluid is collecting again in the upper abdomen as she feels pressure building again. Pt states that she has been walking a lot and it feels very good. Also requesting food and discharge. Family History: Unchanged from Admission Social History: Unchanged from Admission Past Medical History: Unchanged from Admission Objective Active Medications: Acetaminophen (Tylenol Tab*) 650 mg PO Q4H PRN PRN Reason: PAIN - MILD Albuterol (Ventolin 2.5 Mg/3 Ml Neb.Nara*) 2.5 mg INH Q4H PRN PRN Reason: SOB/WHEEZING Diphenhydramine HCl (Benadryl Po*) 50 mg PO BEDTIME PRN PRN Reason: SLEEP Fluticasone Propionate (Flonase Nasal [place] 50mcg*) 2 spray BOTH NARES DAILY [facility] Last Admin: 12/08/19 08:21 Dose: 2 spray Gabapentin (Neurontin Cap(*)) 1,200 mg PO TID [facility] Last Admin: 12/08/19 11:13 Dose: Not Given Hydralazine HCl (Apresoline Iv*) 5 mg IV SLOW PU Q6H PRN PRN Reason: SYSTOLIC BP GREATER THAN: Hydromorphone HCl (Dilaudid Inj*) 0.5 mg IV SLOW PU Q1H PRN PRN Reason: PAIN - SEVERE Last Admin: 12/07/19 07:05 Dose: 0.5 mg Lactated Ringer's (Lactated Ringers 1000 Ml Bag*) 1,000 mls @ 125 mls/hr IV PER RATE [facility] Last Admin: 12/08/19 08:17 Dose: 125 mls/hr Ketorolac Tromethamine (Toradol Inj*) 30 mg IV PUSH Q6H PRN PRN Reason: PAIN - MODERATE Last Admin: 12/08/19 08:24 Dose: 30 mg Metoclopramide HCl (Reglan Iv*) 10 mg IV Q6H PRN PRN Reason: NAUSEA/VOMITING Last Admin: 12/08/19 11:33 Dose: 10 mg Nystatin (Nystatin Cream*) 1 applic TOPICAL TID [facility] Last Admin: 12/08/19 08:22 Dose: 1 applic Ondansetron HCl (Zofran Inj*) 4 mg IV Q4H PRN PRN Reason: NAUSEA/VOMITING Last Admin: 12/06/19 23:42 Dose: 4 mg Oxycodone/Acetaminophen (Percocet 5/325 Tab*) 1 tab PO Q4H PRN PRN Reason: PAIN - MODERATE Last Admin: 12/08/19 11:28 Dose: 1 tab Oxycodone/Acetaminophen (Percocet 5/325 Tab*) 2 tab PO Q4H PRN PRN Reason: PAIN - SEVERE Last Admin: 12/07/19 21:51 Dose: 2 tab Pantoprazole Sodium (Protonix Iv*) 40 mg IV DAILY [facility] Last Admin: 12/08/19 08:19 Dose: 40 mg Spironolactone (Aldactone Tab*) 25 mg PO DAILY [facility] Last Admin: 12/08/19 08:21 Dose: 25 mg Vital Signs - 8 hr 12/08/19 12/08/19 12/08/19 08:00 08:49 11:28 Temperature 98 F Pulse Rate 79 Respiratory 16 18 18 Rate Blood Pressure 142/66 (mmHg) O2 Sat by Pulse 100 Oximetry 12/08/19 12:19 Temperature 98.7 F Pulse Rate 80 Respiratory 18 Rate Blood Pressure 148/63 (mmHg) O2 Sat by Pulse 100 Oximetry Oxygen Devices in Use Now: None Appearance: Obese elderly woman laying in bed watching movies on cell phone. Does not appear to be in any distress. Eyes: No Scleral Icterus, PERRLA Ears/Nose/Mouth/Throat: NL Teeth, Lips, Gums, Clear Oropharnyx, Mucous Membranes Moist Neck: NL Appearance and Movements; NL JVP, Trachea Midline Respiratory: Symmetrical Chest Expansion and Respiratory Effort, Clear to Auscultation Cardiovascular: NL Sounds; No Murmurs; No JVD, RRR Abdominal: NL Sounds; No Tenderness; No Distention, No Hepatosplenomegaly, - - Large firm but fluctuant bulge upper abdomen, is unchanged from admission. Wound remains well approximated, no drainage observed, well healing in appearance. Lymphatic: No Cervical Adenopathy Extremities: No Edema, No Clubbing, Cyanosis Skin: No Rash or Ulcers, No Nodules or Sclerosis Neurological: Alert and Oriented x 3, NL Sensation, NL Gait, NL Muscle Strength and Tone Result Diagrams: 12/07/19 10:40 12/07/19 10:40 Microbiology and Other Data: Microbiology 12/05/19 16:57 Aerobic Blood Culture - Preliminary Blood Venous No Growth Day 1 Anaerobic Blood Culture - Preliminary No Growth Day 1 Assess/Plan/Problems-Billing Assessment: 64 yo female patient with hx of POD 12 S/P appendectomy and SBO repair also DM II, hyperlipidemia arrives to the hospital with C/O 1 day increasing abdominal pain, nausea, reflux, 2 days constipation, and absent flatus. - Patient Problems (1) SBO (small bowel obstruction) Current Visit: No Comment: -NPO -Gastrostomy tube placed 12/05, draining dark green bile. -Will have UGI 12/07 -Managed by Surgery -Franchesca removed from abdomen incision from previous SBO repair approx. 2 wks ago -Currently denies nausea and vomiting, reports passage of flatus today and one BM -IV/PO pain meds (2) Diabetes Current Visit: Yes Comment: -Well controlled on current regimen -Sliding scale -NPO presently -Gabapentin for neuropathy (3) Hyperlipidemia Current Visit: Yes Comment: - Statin on hold until resolution of obstruction (4) Hypertension Current Visit: Yes Comment: -Remains normotensive -Well controlled on current regimen -Spironolactone with hyrdalazine PRN (5) Nausea Current Visit: Yes SNOMED Code(s): 506049753 Comment: -Continues to deny nausea -Ondansetron PRN -Reglan PRN (6) GERD (gastroesophageal reflux disease) Current Visit: Yes Comment: -Pantoprazole 40mg IV (7) DVT prophylaxis Current Visit: No Comment: -Ambulatory -SCD's -Managed by Surgery (8) Full code status Current Visit: Yes Comment: Status and Disposition: Stable inpatient
[2019-12-08] MEDS ORDERED: Metoclopramide TAB* 10 MG PO PRN (19:15)
[2019-12-09] MEDS: Lactated Ringers 1000 ML Bag* 1,000 ML IV SCH ×2 (01:25→09:36)
[2019-12-09] MEDS: oxyCODONE/Acetamin 5/325 MG* TAB PO PRN ×2 (04:18→09:35)
[2019-12-09] MEDS: Fluticasone NASAL SPRAY 50MCG* 16 gm SPRAY BTL BOTH NARES SCH (08:49)
[2019-12-09] MEDS: Gabapentin CAP(*) 400 MG PO SCH (08:50)
[2019-12-09] MEDS: Pantoprazole IV* 40 MG IV SCH (08:50)
[2019-12-09] MEDS: Nystatin CREAM* 15 GM TUBE TOPICAL SCH (08:50)
[2019-12-09] MEDS: Spironolactone TAB* 25 MG PO SCH (08:51)
--- NOTE | 2019-12-09 09:45 | PN ---
Progress Note - Progress Note Date of Service: 12/09/19 Note: S: Reports she is feeling very well and eager to go home. Ambulating without issue. Tolerating clear liquid diet well. Minimal to no pain. No nausea, emesis , fever, chills. UGI and G tube study completed yesterday, showed improvement. O: Temp Pulse Resp BP Pulse Ox 97.6 F 79 16 145/72 97 12/09/19 08:29 12/09/19 08:29 12/09/19 09:35 12/09/19 08:29 12/09/19 08:29 Intake and Output Last 24 Hours 12/07/19 12/08/19 12/09/19 12/10/19 06:59 06:59 06:59 06:59 Intake Total 1152 2073 2960 1010 Output Total 1530 1750 2550 335 Balance -378 323 410 675 Intake: IV Fluids 952 1973 1010 LR 952 1973 1010 IVPB 2960 LR 2960 Oral 200 100 Output: Pigtail Drain 930 50 250 35 Urine 600 1700 2300 300 Other: Estimated Void Medium # Bowel Movements 3 Estimated Stool Amount Large # Voids 2 PEX General: Alert, in NAD. Integumentary: No rashes, jaundice. HEENT: PERRLA. Oropharynx clear. Heart: RRR. Lungs: CTAB. ABD: BS present, soft. Midline incision C/D/I with steri strips and minimal tenderness. Superior portion of incision with nontender, palpable fullness. G tube with scan bilious drainage. Extremities: Distal pulses intact bilaterally. No edema. Calves soft and nontender. Assessment and plan: 64 yo F s/p ex lap and MARYBETH for SBO, s/p G tube placement for dilated stomach remnant POD 3. Her condition is improving. Soft meal was ordered, possible discharge later today. Plan discussed with Dr. Sanchez.
--- NOTE | 2019-12-09 11:52 | DS ---
<Fermín De La Rosa Unruly - Last Filed: 12/09/19 11:52> Admit date:12/05/2019 Discharge date: 12/09/2019 Admit diagnosis: ABD pain Discharge diagnosis: ABD pain, dilation of gastric remnant. Procedures performed: Percutaneous G- tube placement PEX General: Alert, in NAD. Integumentary: No rashes, jaundice, petechia. HEENT: Oropharynx clear. PERRLA. Trachea midline. Heart: RRR, no MRG. Lungs: CTAB, no WRR. ABD: BS present, soft. Midline incision C/D/I with steri strips and minimal tenderness. Superior portion of incision with nontender, palpable fullness. G tube with scan bilious drainage. Extremities: Distal pulses intact bilaterally. No edema. Calves soft and nontender. Labs unremarkable. Hospital course: She presented to the ED with ABD, nausea, and distention after being [place] [facility] [place], at which hospitalization she had an ex lap and [facility]ARY[facility] for SBO. CT demonstrated dilated of the excluded portion of the stomach, duodenum, and proximal jejunum just proximal to the anastamosis of the distal tello limb. She was admitted and made NPO. On the second day of admission , she had no N/V and was passing flatus. Gastrostomy tube was placed by IR, which was tolerated well. On day 3, she was feeling better and with minimal pain , as well as passing BMs. Placed on ice chips diet. On day 4, she continued to improve clinically and had a UGI study demonstrating improvement. She was started on clear liquid diet. On day 5, she was tolerating clear liquids well and transitioned to soft diet, which was also tolerated well. She was experiencing minimal to no pain, no N/V, ambulating without issue, and overall feeling well and eager to be discharged. Instructions were given to the patient regarding diet, medications, activity, care for drain, and follow up. All questions were answered. Discharged home in stable condition. <Nilay Sanchez - Last Filed: 12/09/19 12:34> The above text reviewed and I agree with the plan. Patient was seen earlier today and I evaluated her gastrostomy tube. We will cap this and send her home. I will remove gastrostomy sutures in the office next week and have discussed this with Dr. Robles. I have been following patient's course throughout, but due to coronavirus I've had limited one-on-one engagement with this patient.
[2019-12-09 12:16] VITALS: BP 154/77
== END 2019-12-09 13:50 | disposition home health service (06) | DRG 222 ==
LOC: ED 16:15 → SSU 18:52 → OBSVTOIN 12-06 12:00
PROVIDERS: ADMIT Internal Medicine; ATTEND Surgery
PROC: 0D9630Z Drainage of Stomach with Drainage Device, Percutaneous Approach (ICD-10-PCS; principal; 2019-12-06)
DX: K91.30 Postprocedural intestinal obstruction, unspecified as to partial versus complete (principal); Z68.42 Body mass index [BMI] 45.0-49.9, adult; Y83.8 Other surgical procedures as the cause of abnormal reaction of the patient, or of later complication, without mention of misadventure at the time of the procedure; Y92.234 Operating room of hospital as the place of occurrence of the external cause; E78.5 Hyperlipidemia, unspecified; G89.29 Other chronic pain; J30.2 Other seasonal allergic rhinitis; K31.89 Other diseases of stomach and duodenum; M19.042 Primary osteoarthritis, left hand; M19.041 Primary osteoarthritis, right hand; M19.072 Primary osteoarthritis, left ankle and foot; M19.071 Primary osteoarthritis, right ankle and foot; Z96.653 Presence of artificial knee joint, bilateral; M47.9 Spondylosis, unspecified; K21.9 Gastro-esophageal reflux disease without esophagitis; E66.9 Obesity, unspecified; E11.42 Type 2 diabetes mellitus with diabetic polyneuropathy; E78.00 Pure hypercholesterolemia, unspecified; F32.9 Major depressive disorder, single episode, unspecified; I10 Essential (primary) hypertension; Z87.442 Personal history of urinary calculi; Z87.11 Personal history of peptic ulcer disease; Z98.84 Bariatric surgery status; Z90.710 Acquired absence of both cervix and uterus; Z90.49 Acquired absence of other specified parts of digestive tract; Z79.899 Other long term (current) drug therapy; Z88.8 Allergy status to other drugs, medicaments and biological substances; Z88.5 Allergy status to narcotic agent; Z88.2 Allergy status to sulfonamides; Z91.030 Bee allergy status; Z91.048 Other nonmedicinal substance allergy status; Z87.891 Personal history of nicotine dependence
CPT/HCPCS: 36415; 49440; 71045; 74177; 74246; 80048; 80053; 83605; 83690; 83735; 85025; 85610; 85730; 86140; 87040; 96374; 96375; 99156; 99157; 99284; A9270-GY; C1769; G0378; J0690; J1170; J1650; J1885; J2250; J2405; J2543; J2765; J3010; J3370; J3475; J3480; J3490; Q9967

== ENCOUNTER 2021-11-25 02:53 | Inpatient (IN) ==
[2021-11-25] MEDS ORDERED: NS 0.9% 1000 ml BAG 1,000 ML IV ONE (02:59)
[2021-11-25] MEDS ORDERED: Morphine 10 MG/ML VIAL (1 ml) IV ONE (02:59)
[2021-11-25] MEDS ORDERED: Droperidol 5 MG/2 ML 2 ML VIAL IV ONE (03:01)
[2021-11-25 03:41] LABS: ABS Eosinophils 0.1 10^3/ul (0-0.6); ABS Lymphocytes 0.7 10^3/ul (1.0-4.8); ABS Monocytes 0.3 10^3/ul (0-0.8); Hematocrit 44 % (35-47); Hemoglobin 14.7 g/dL (12.0-16.0); Lymphocyte % 11.4 %; Mean Corpuscular HGB Conc 33 g/dL (31-36); Mean Corpuscular Hemoglobin 31 pg (27-31); Mean Corpuscular Volume 93 fL (80-97); Mean Platelet Volume 8.9 fL (7.4-10.4); Nucleated Red Blood Cells % 0.2; Platelet Count 201 10^3/uL (150-450); Red Blood Count 4.73 10^6 /uL (3.70-4.87); Red Cell Distribution Width 14 % (10-15); White Blood Count 6.1 10^3/uL (3.5-10.8)
[2021-11-25 04:27] LABS: ALT 31 U/L (7-52); Albumin 4.8 g/dL (3.2-5.2); Albumin/Globulin Ratio 1.5 (1-3); Alkaline Phosphatase 89 U/L (35-149); Blood Urea Nitrogen 21 mg/dL (6-24); C Reactive Protein 31.69 mg/L (<8.01); CO2 Carbon Dioxide 24 mmol/L (22-32); Calcium 9.6 mg/dL (8.6-10.3); Chloride 96 mmol/L (101-111); Globulin 3.2 g/dL (2-4); Glucose 161 mg/dL (70-100); Lipase 47 U/L (11.0-82.0); Sodium 132 mmol/L (135-145); eGFR CKD-EPI 61.7 (>60)
[2021-11-25 04:29] LABS: Anion Gap 12 mmol/L (2-11)
[2021-11-25] MEDS ORDERED: Iohexol 300 (CONTRAST) 10 ML SDV IV ONE (05:13)
[2021-11-25] MEDS ORDERED: Piperacillin/Tazobac ADVAN 3.375 GM in NS 0.9% 100 ml BAG 100 ML IV ONE (07:38)
[2021-11-25] MEDS ORDERED: Thiamine 100 MG/ML 2 ml VIAL 100 MG, Folic Acid IV 1 MG, Multiple Vitamin IV ADULT 10 M... IV ONE (07:38)
[2021-11-25] MEDS ORDERED: Piperacillin/Tazobac 3.375 GM BAG ONE (07:44)
[2021-11-25] MEDS ORDERED: Dexamethasone IV 4 MG/ML VIAL 1 ml VIAL ONE (08:13)
[2021-11-25] MEDS ORDERED: fentaNYL 100 mcg/2 ml 50 MCG/ML VIAL ONE ×5 (08:13→13:23)
[2021-11-25] MEDS ORDERED: Rocuronium 50 mg VIAL 10 mg/ml 5 ml VIAL (50 mg) ONE ×3 (08:13→11:24)
[2021-11-25] MEDS ORDERED: Lidocaine 2% PF 5 ML VIAL ONE (08:13)
[2021-11-25] MEDS ORDERED: Propofol 10 MG/ML 20 ML BTL ONE (08:13)
[2021-11-25] MEDS ORDERED: Midazolam 2 mg/2 ml VIAL 1 mg/ml 2 ml VIAL (2 mg) ONE (08:13)
[2021-11-25] MEDS ORDERED: Ondansetron 4 mg VIAL 2 MG/ML 2 ml VIAL ONE (08:13)
[2021-11-25] MEDS ORDERED: HYDROmorphone 0.5 MG/0.5 ML SYRINGE IV SLOW PU PRN (08:14)
[2021-11-25] MEDS ORDERED: Ondansetron 4 mg VIAL 2 MG/ML 2 ml VIAL IV PRN (08:14)
[2021-11-25] MEDS ORDERED: Succinylcholine 200 mg VIAL 20 mg/ml 10 ml VIAL (200 mg) ONE (08:22)
[2021-11-25] MEDS ORDERED: Bupivacaine 0.25% w/EPI 10 ML SDV ONE (08:27)
[2021-11-25 08:51] LABS: Urine Appearance Cloudy; Urine Bilirubin Negative (Negative); Urine Blood 3+ (Negative); Urine Color Yellow; Urine Glucose Negative (Negative); Urine Ketones Negative (Negative); Urine Nitrite Negative (Negative); Urine Protein Negative (Negative); Urine Urobilinogen Negative (Negative)
[2021-11-25 09:28] LABS: Urine Amorphous Crystals Present (Absent); Urine Bacteria 3+ (Absent); Urine Red Blood Cell 3+(>10/hpf) (Absent); Urine Squamous Epithelial Cell Present (Absent); Urine White Blood Cell 1+(6-10/hpf) (Absent)
[2021-11-25] MEDS ORDERED: Clindamycin 900 MG/D5W BAG IVPB ONE (10:00)
[2021-11-25] MEDS ORDERED: Gentamicin ADULT 250 MG in NS 0.9% 100 ml BAG 100 ML IVPB ONE (10:00)
[2021-11-25] MEDS ORDERED: Phenylephrine IV 10 MG/ML 1 ml VIAL ONE (10:13)
[2021-11-25] MEDS ORDERED: Acetaminophen IV 1 GM/100ML 100 ML IV ONE (11:12)
[2021-11-25] MEDS ORDERED: DiMENhydriNATE IV 50 mg/ml 1 ml VIAL IV PUSH PRN (13:24)
[2021-11-25] MEDS ORDERED: Naloxone 0.4 mg VIAL 0.4 mg/ml 1 ml VIAL IV PRN (13:24)
[2021-11-25] MEDS: fentaNYL 100 mcg/2 ml 50 MCG/ML VIAL IV PRN ×2 (13:35→14:20)
[2021-11-25] MEDS ORDERED: Naloxone 0.4 mg VIAL 0.4 mg/ml 1 ml VIAL IV PUSH PRN (13:41)
[2021-11-25] MEDS ORDERED: Albuterol HFA INHALER 8 gm MDI INH PRN (13:42)
[2021-11-25] MEDS: HYDROmorphone PCA 20 MG/20 ML PCA.SYRING PCA SCH (14:37)
[2021-11-25] MEDS: Famotidine IV 10 MG/ML 2 ml VIAL (20 mg) IV SCH (22:12)
[2021-11-26 05:25] LABS: Urine Appearance Cloudy; Urine Bilirubin Negative (Negative); Urine Blood 1+ (Negative); Urine Color Amber; Urine Glucose Negative (Negative); Urine Ketones Negative (Negative); Urine Nitrite Negative (Negative); Urine Protein 1+(30 mg/dL) (Negative); Urine Specific Gravity 1.042 (1.002-1.030); Urine Urobilinogen Negative (Negative)
[2021-11-26 05:30] LABS: Urine Bacteria Absent (Absent); Urine Granular Casts Present (Absent); Urine Red Blood Cell 3+(>10/hpf) (Absent); Urine White Blood Cell Trace(0-5/hpf) (Absent)
[2021-11-26 05:59] LABS: Calcium 8.4 mg/dL (8.6-10.3); Potassium 4.9 mmol/L (3.5-5.0)
[2021-11-26 06:04] LABS: ABS Lymphocytes 0.6 10^3/ul (1.0-4.8); ABS Monocytes 0.7 10^3/ul (0-0.8); ABS Neutrophils 7.1 10^3/ul (1.5-7.7); Eosinophil % 0.3 %; Hematocrit 37 % (35-47); Hemoglobin 12.5 g/dL (12.0-16.0); Lymphocyte % 6.7 %; Mean Corpuscular HGB Conc 34 g/dL (31-36); Mean Corpuscular Hemoglobin 32 pg (27-31); Mean Corpuscular Volume 94 fL (80-97); Mean Platelet Volume 8.9 fL (7.4-10.4); Nucleated Red Blood Cells % 0.1; Platelet Count 189 10^3/uL (150-450); Red Blood Count 3.96 10^6 /uL (3.70-4.87); Red Cell Distribution Width 14 % (10-15); White Blood Count 8.5 10^3/uL (3.5-10.8); eGFR CKD-EPI 58.2 (>60)
[2021-11-26] MEDS: Fluticasone NASAL SPRAY 50MCG 16 gm SPRAY BTL BOTH NARES SCH (09:24)
[2021-11-26] MEDS: Famotidine IV 10 MG/ML 2 ml VIAL (20 mg) IV SCH ×2 (09:25→21:06)
[2021-11-26] MEDS: Lactated Ringers 1000 ml BAG 1,000 ML IV SCH ×2 (10:36→20:00)
[2021-11-27] MEDS: HYDROmorphone PCA 20 MG/20 ML PCA.SYRING PCA SCH (02:11)
[2021-11-27] MEDS: Lactated Ringers 1000 ml BAG 1,000 ML IV SCH ×3 (04:14→19:50)
[2021-11-27 05:59] LABS: ABS Eosinophils 0.2 10^3/ul (0-0.6); ABS Lymphocytes 0.7 10^3/ul (1.0-4.8); ABS Monocytes 0.4 10^3/ul (0-0.8); ABS Neutrophils 4.9 10^3/ul (1.5-7.7); Eosinophil % 3.6 %; Hematocrit 31 % (35-47); Hemoglobin 10.5 g/dL (12.0-16.0); Lymphocyte % 11.3 %; Mean Corpuscular HGB Conc 34 g/dL (31-36); Mean Corpuscular Hemoglobin 32 pg (27-31); Mean Corpuscular Volume 93 fL (80-97); Mean Platelet Volume 8.6 fL (7.4-10.4); Platelet Count 154 10^3/uL (150-450); Red Blood Count 3.29 10^6 /uL (3.70-4.87); Red Cell Distribution Width 14 % (10-15); White Blood Count 6.2 10^3/uL (3.5-10.8)
[2021-11-27 06:38] LABS: Calcium 8.2 mg/dL (8.6-10.3); Magnesium 1.7 mg/dL (1.9-2.7); Phosphorus 2.4 mg/dL (2.5-5.0); Potassium 3.9 mmol/L (3.5-5.0); eGFR CKD-EPI 88.6 (>60)
[2021-11-27] MEDS ORDERED: HYDROmorphone 0.5 MG/0.5 ML SYRINGE IV SLOW PU PRN (08:32)
[2021-11-27] MEDS ORDERED: HYDROmorphone 1 MG/1 ML SYRINGE IV SLOW PU PRN (08:32)
[2021-11-27] MEDS ORDERED: Fluticasone HFA 110 mcg(NF) MDI INH SCH (09:00)
[2021-11-27] MEDS: Famotidine IV 10 MG/ML 2 ml VIAL (20 mg) IV SCH ×2 (09:01→20:15)
[2021-11-27] MEDS: Fluticasone NASAL SPRAY 50MCG 16 gm SPRAY BTL BOTH NARES SCH (09:53)
[2021-11-27] MEDS ORDERED: Magnesium Sulfate 2 gm BAG 2 GM/50 ML BAG IVPB ONE (10:19)
[2021-11-27] MEDS: CMCS:Ketoconazole 2 % CREAM (NF) 30 GM TUBE TOPICAL SCH ×3 (13:38→22:01)
[2021-11-27] MEDS: Potassium Acid Phos 500 mg TAB PO SCH ×2 (13:44→20:15)
[2021-11-28] MEDS: CMCS:Ketoconazole 2 % CREAM (NF) 30 GM TUBE TOPICAL SCH (08:53)
[2021-11-28] MEDS: Fluticasone NASAL SPRAY 50MCG 16 gm SPRAY BTL BOTH NARES SCH (08:54)
[2021-11-28] MEDS: Famotidine IV 10 MG/ML 2 ml VIAL (20 mg) IV SCH (10:07)
[2021-11-28 11:15] VITALS: BP 155/73
== END 2021-11-28 12:04 | disposition home or self-care (01) | DRG 336 ==
LOC: ED 02:53 → OR 08:14 → SSU 15:37
PROVIDERS: ADMIT Surgery; ATTEND Surgery

== ENCOUNTER 2022-01-01 08:37 | Observation (INO) ==
[2022-01-01] MEDS ORDERED: Piperacillin/Tazobac ADVAN 3.375 GM in NS 0.9% 100 ml BAG 100 ML IV ONE (10:20)
[2022-01-01] MEDS ORDERED: Lactated Ringers 1000 ml BAG 1,000 ML IV SCH (11:00)
[2022-01-01 11:17] LABS: INR 1.29 (0.86-1.15)
[2022-01-01 11:19] LABS: ABS Eosinophils 0.2 10^3/ul (0-0.6); ABS Lymphocytes 0.7 10^3/ul (1.0-4.8); ABS Monocytes 0.5 10^3/ul (0-0.8); ABS Neutrophils 5.4 10^3/ul (1.5-7.7); Hematocrit 32 % (35-47); Hemoglobin 10.7 g/dL (12.0-16.0); Mean Corpuscular HGB Conc 33 g/dL (31-36); Mean Corpuscular Hemoglobin 30 pg (27-31); Mean Corpuscular Volume 91 fL (80-97); Mean Platelet Volume 7.9 fL (7.4-10.4); Platelet Count 328 10^3/uL (150-450); Red Blood Count 3.53 10^6 /uL (3.70-4.87); Red Cell Distribution Width 14 % (10-15); White Blood Count 6.8 10^3/uL (3.5-10.8)
[2022-01-01 11:38] LABS: Albumin 3.4 g/dL (3.2-5.2); Calcium 9.2 mg/dL (8.6-10.3); Potassium 4.4 mmol/L (3.5-5.0); Total Bilirubin 0.5 mg/dL (0.2-1.0)
[2022-01-01 11:44] LABS: Albumin/Globulin Ratio 1.1 (1-3); Globulin 3.2 g/dL (2-4); Total Protein 6.6 g/dL (6.4-8.9); eGFR CKD-EPI 83.2 (>60)
[2022-01-01] MEDS ORDERED: Propofol 10 MG/ML 20 ML BTL ONE (13:39)
[2022-01-01] MEDS ORDERED: Lidocaine 2% PF 5 ML VIAL ONE (13:39)
[2022-01-01] MEDS ORDERED: fentaNYL 100 mcg/2 ml 50 MCG/ML VIAL ONE ×2 (13:39→15:12)
[2022-01-01] MEDS ORDERED: Bupivacaine 0.25% w/EPI 10 ML SDV ONE (13:40)
[2022-01-01] MEDS ORDERED: DiMENhydriNATE IV 50 mg/ml 1 ml VIAL IV PUSH PRN ×2 (14:06→18:08)
[2022-01-01] MEDS ORDERED: Naloxone 0.4 mg VIAL 0.4 mg/ml 1 ml VIAL IV PRN ×2 (14:06→18:07)
[2022-01-01] MEDS ORDERED: Succinylcholine 200 mg VIAL 20 mg/ml 10 ml VIAL (200 mg) ONE (14:22)
[2022-01-01] MEDS ORDERED: Rocuronium 50 mg VIAL 10 mg/ml 5 ml VIAL (50 mg) ONE (14:22)
[2022-01-01] MEDS ORDERED: Piperacillin/Tazobac ADVAN 3.375 GM in NS 0.9% 100 ml BAG 100 ML IV SCH (15:00)
[2022-01-01] MEDS ORDERED: Albuterol/Ipratropium NEB.SOL (2.5/0.5 MG) 3 ML NEB.SOLN INH PRN (15:00)
[2022-01-01] MEDS ORDERED: HYDROmorphone 0.5 MG/0.5 ML SYRINGE IV SLOW PU PRN ×2 (15:05→18:26)
[2022-01-01] MEDS: fentaNYL 100 mcg/2 ml 50 MCG/ML VIAL IV PRN ×4 (15:15→15:40)
[2022-01-01] MEDS: oxyCODONE/Acetamin 5/325 mg TAB PO PRN ×2 (16:00→16:01)
[2022-01-01] MEDS: NS 0.9% 1000 ml BAG 1,000 ML IV SCH (18:05)
[2022-01-01] MEDS ORDERED: ZOSYN 3.375 GM x ONE DOSE over 30 miuntes IV (18:30)
[2022-01-01] MEDS: Ondansetron 4 mg VIAL 2 MG/ML 2 ml VIAL IV PRN (20:13)
[2022-01-02] MEDS: Piperacillin/Tazobac ADVAN 3.375 GM in NS 0.9% 100 ml BAG 100 ML IV SCH ×4 (00:35→22:29)
[2022-01-02] MEDS: Ondansetron 4 mg VIAL 2 MG/ML 2 ml VIAL IV PRN ×5 (02:31→22:30)
[2022-01-02 06:28] LABS: ABS Eosinophils 0.1 10^3/ul (0-0.6); ABS Lymphocytes 0.6 10^3/ul (1.0-4.8); ABS Monocytes 0.4 10^3/ul (0-0.8); ABS Neutrophils 4.3 10^3/ul (1.5-7.7); Eosinophil % 2.2 %; Hematocrit 31 % (35-47); Hemoglobin 10.1 g/dL (12.0-16.0); Lymphocyte % 10.4 %; Mean Corpuscular HGB Conc 33 g/dL (31-36); Mean Corpuscular Hemoglobin 30 pg (27-31); Mean Corpuscular Volume 91 fL (80-97); Mean Platelet Volume 7.5 fL (7.4-10.4); Platelet Count 321 10^3/uL (150-450); Red Blood Count 3.34 10^6 /uL (3.70-4.87); Red Cell Distribution Width 14 % (10-15); White Blood Count 5.3 10^3/uL (3.5-10.8)
[2022-01-02 07:01] LABS: Potassium 4.4 mmol/L (3.5-5.0)
[2022-01-02 07:06] LABS: eGFR CKD-EPI 93.1 (>60)
[2022-01-02] MEDS ORDERED: Scopolamine 1 mg/72hr PATCH ONE (07:55)
[2022-01-02] MEDS ORDERED: Scopolamine 1 mg/72hr PATCH TRANSDERM SCH (08:00)
[2022-01-02] MEDS: NS 0.9% 1000 ml BAG 1,000 ML IV SCH (13:03)
[2022-01-02] MEDS ORDERED: Vancomycin 2,000 MG in NS 0.9% 500 ml BAG 500 ML IVPB ONE (14:00)
[2022-01-02] MEDS ORDERED: Metoclopramide 5 MG/ML VIAL (10 mg) IV PRN (14:33)
[2022-01-02] MEDS ORDERED: Vancomycin per Pharmacy 1 EA NOTE FOLLOW UP PRN (15:52)
[2022-01-02] MEDS: oxyCODONE/Acetamin 5/325 mg TAB PO PRN (22:29)
[2022-01-03] MEDS ORDERED: Piperacillin/Tazobac ADVAN 3.375 GM in NS 0.9% 100 ml BAG 100 ML IV SCH ×2 (04:00→12:00)
[2022-01-03] MEDS ORDERED: Vancomycin 1,250 MG in NS 0.9% 250 ml 250 ML IVPB SCH ×3 (04:00→09:00)
[2022-01-03 06:48] LABS: ABS Eosinophils 0.1 10^3/ul (0-0.6); ABS Lymphocytes 0.6 10^3/ul (1.0-4.8); ABS Monocytes 0.5 10^3/ul (0-0.8); Hematocrit 32 % (35-47); Hemoglobin 10.3 g/dL (12.0-16.0); Lymphocyte % 11.7 %; Mean Corpuscular HGB Conc 33 g/dL (31-36); Mean Corpuscular Hemoglobin 30 pg (27-31); Mean Corpuscular Volume 91 fL (80-97); Mean Platelet Volume 8.1 fL (7.4-10.4); Platelet Count 329 10^3/uL (150-450); Red Blood Count 3.48 10^6 /uL (3.70-4.87); Red Cell Distribution Width 14 % (10-15); White Blood Count 5.2 10^3/uL (3.5-10.8)
[2022-01-03] MEDS: Piperacillin/Tazobac ADVAN 3.375 GM in NS 0.9% 100 ml BAG 100 ML IV SCH (07:19)
[2022-01-03 13:32] VITALS: BP 125/68
[2022-01-04] MEDS ORDERED: Vancomycin Trough Check NOTE FOLLOW UP ONE (08:30)
== END 2022-01-03 15:25 | disposition home or self-care (01) ==
LOC: SSU 08:37 → ED 08:37
PROVIDERS: ADMIT Surgery; ATTEND Surgery